=== PATIENT | male | born 1960 | race Hispanic/Latino ===

== ENCOUNTER 2017-06-24 07:31 | Inpatient (IN) | payer MEDICARE ==
[2017-06-24 08:32] LABS: #Basophils 0.1 thou/uL (0.0-0.2); #Eosinphils 0.1 thou/uL (0.0-0.7); #Lymphocytes 1.8 thou/uL (1.20-3.40); #Monocytes 0.3 thou/uL (0.11-0.59); #Neutrophils 5.1 thou/uL (1.40-6.50); %Basophils 1.2 % (0.0-1.0); %Eosinophils 1.7 % (0.0-10.0); %Lymphocytes 24.4 % (21.0-51.0); %Neutrophils 68.7 % (42.0-75.0); Hemoglobin 11.6 g/dL (14.0-18.0); Mean Corpuscular HGB CONC 31.9 g/dL (32.0-36.0); Mean Corpuscular Hemoglobin 30.6 pg (27.0-31.0); Mean Platelet Volume 7.7 fL (7.4-10.4); Platelet Count 328 thou/uL (130-400); RBC Distribution Width 13.5 % (11.5-14.5); Red Blood Cell (RBC) Count 3.79 mill/uL (4.70-6.10); White Blood Cell (WBC) Count 7.5 thou/uL (4.8-10.8)
--- NOTE | 2017-06-24 08:36 | RAD ---
SINGLE VIEW OF THE CHEST: COMPARISON: 10/19/16. HISTORY: Left arm swelling that started this morning. Facial swelling. FINDINGS: A single view of the chest shows a normal size cardiomediastinal silhouette. There is a small right pleural effusion with adjacent atelectasis. No left pleural effusion is seen. IMPRESSION: Small right pleural effusion with adjacent atelectasis. POS: [facility]
[2017-06-24 08:51] LABS: ALT (SGPT) 14 U/L (8-55); AST (SGOT) 20 U/L (5-34); Alkaline Phosphatase 81 U/L (40-150); Anion Gap 13 mmol/L (10-20); BUN (Urea Nitrogen) 36 mg/dL (8.4-25.7); Bilirubin, Total 0.2 mg/dL (0.2-1.2); CK (CPK) 376 U/L (30-200); Calc. Creatinine Clearance 0 mL/min (70-130); Calcium 7.7 mg/dL (7.8-10.44); Carbon Dioxide 18 mmol/L (22-29); Chloride 115 mmol/L (98-107); Estimated GFR-MDRD 23; Globulin 2.3 g/dL (2.4-3.5); Glucose 71 mg/dL (70-105); Protein, Total 4.3 g/dL (6.0-8.3); Sodium 143 mmol/L (136-145)
[2017-06-24 08:54] LABS: Potassium 2.7 mmol/L (3.5-5.1)
[2017-06-24] MEDS ORDERED: Potassium Chloride 20 MEQ in Sodium Chloride 0.9% 250 ML 250 ML IVPB SCH (09:15)
[2017-06-24] MEDS ORDERED: Potassium Chloride 20 MEQ TAB ONE (09:33)
--- NOTE | 2017-06-24 09:47 | ULT ---
LEFT UPPER EXTREMITY VENOUS DUPLEX SONOGRAM: HISTORY: Left arm pain and edema. FINDINGS: The left internal jugular and subclavian veins were evaluated along with the axillary, brachial, ceph alic, and basilic veins. There is good color and spectral Doppler flow, compression, and augmentatio n. IMPRESSION: No sonographic evidence of deep vein thrombosis within the left upper extremity. POS: [facility]
[2017-06-24] MEDS ORDERED: Bisacodyl 5 MG TAB PO PRN (12:05)
[2017-06-24] MEDS ORDERED: Acetaminophen 650 MG Suppository PR PRN (12:05)
[2017-06-24] MEDS ORDERED: Acetaminophen 325 MG TAB PO PRN (12:05)
[2017-06-24] MEDS ORDERED: Dextrose 5% in Water 1,000 ML IV PRN (12:11)
[2017-06-24] MEDS ORDERED: Dextrose 50% Abboject 50 ML SYRINGE SLOW IVP PRN (12:11)
[2017-06-24] MEDS ORDERED: hydrALAZINE 20 MG/ML VIAL ONE (13:27)
[2017-06-24] MEDS ORDERED: NS 0.9% w/ 20 MEQ KCL 1,000 ML/1,000 ML BAG IV SCH (14:15)
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
[2017-06-24] MEDS ORDERED: Heparin 5,000 UNITS/ML VIAL SC SCH (15:00)
[2017-06-24] MEDS: Potassium Chloride 20 MEQ TAB PO SCH ×2 (18:26→20:19)
[2017-06-24] MEDS: Nicotine 21 MG PATCH TD SCH (18:27)
[2017-06-24] MEDS: Heparin 5,000 UNITS/ML VIAL SC SCH (20:19)
[2017-06-24] MEDS: Metoprolol Tartrate 25 MG TAB PO SCH (20:19)
[2017-06-24 22:25] LABS: Potassium, Urine 39.2 mmol/L
--- NOTE | 2017-06-24 23:09 | ULT ---
RENAL ULTRASOUND: History: Acute renal insufficiency. FINDINGS: The right kidney measures 12 cm in length. There is increased cortical echogenicity consistent with m edical renal disease. There is no hydronephrosis. The left kidney measures 12 cm length. Mild increased cortical echogenicity. No hydronephrosis. The bladder is abnormal with a thickened bladder wall. The bladder is mostly contracted, however, the bladder wall appears prominent even for contracted state. There is mild to moderate ascites noted in the lower abdomen. IMPRESSION: 1. Both kidneys show increased cortical echogenicity consistent with medial renal disease. 2. No hydronephrosis. 3. Bladder appears abnormal with thickened bladder wall. 4. Moderate ascites noted in the lower abdomen. POS: [facility]
--- NOTE | 2017-06-24 23:44 | CON ---
DATE OF CONSULTATION: 06/24/2017 CONSULTING PHYSICIAN: Maribell Castillo M.D. REQUESTING PHYSICIAN: Eric Breen M.D. REASON FOR CONSULTATION: Acute kidney injury. IMPRESSION: 1. Acute on chronic kidney disease query cause versus progression of baseline chronic kidney disease in the context of problem #2. 2. Diabetic nephropathy with nephrotic range proteinuria. 3. Left-sided swelling, which is not new, may be related to some cerebrovascular accident in the pas t compounded by potential nephrotic syndrome. IMPRESSION: Severe hypokalemia with metabolic acidosis, query cause. PLAN: 1. Discontinue IV fluid. 2. Potassium supplementation and also evaluate the magnesium level. 3. Evaluate this currently elevated creatinine by checking the echogenicity of the kidneys with ultr asound also we will reevaluate the degree of proteinuria by checking urine chemistry. 4. Check . We are checking parathyroid hormone and phosphorus level. 5. Renally dose all medications and avoid potentially nephrotoxic agents. 6. No indication for renal replacement therapy. HISTORY OF PRESENT ILLNESS: History is that of a 57-year-old gentleman with a known history of kidne y disease in the context of diabetic nephropathy with nephrotic range proteinuria, who presented here with left-sided swelling, which is not new, it has been happening on and off and the patient denies use of any new medications that might be potentially nephrotoxic. The patient also did complain of w eakness, but no difficulty with urination or any shortness of breath. On evaluation, the patient was noted with a creatinine above 2 when the patient normal baseline creatinine is anywhere around 1, as a result of these findings decision has been taken to involve Renal in the management of this case. PAST MEDICAL HISTORY: Significant for possible diabetic nephropathy, peripheral vascular disease, st atus post right BKA, hypertension. MEDICATIONS: Reviewed and as documented on [employer]. FAMILY HISTORY: No family history significantly related to the presenting illness. SOCIAL HISTORY: The patient is , smokes cigarettes and denies significant alcohol or illicit drug use. ALLERGIES: No known drug allergies. REVIEW OF SYSTEMS: As documented in the body of the history. All the other systems were reviewed an d none was found to be significantly related to the presenting illness. LABORATORY INVESTIGATION: Showed potassium of 3.7, bicarbonate of 18, BUN of 36 with a creatinine 2. 81, calcium 7.7 with albumin of 2.0. CBC unremarkable. PHYSICAL EXAMINATION: GENERAL: The patient was found to be somewhat irritated, otherwise noted with the following. VITAL SIGNS: Afebrile with temperature 98.77, pulse 55-60, blood pressure 185/84, respiratory rate o f 16, O2 sat 98%. HEENT: Unremarkable with moist oral mucosa. Neck was supple. No conjunctival injection or icterus. CARDIOVASCULAR SYSTEM: First and second heart sounds were heard. RESPIRATORY SYSTEM: Clear to auscultation. DIGESTIVE SYSTEM: Revealed a benign abdomen with positive bowel sounds. EXTREMITIES: No peripheral edema. SKIN: No new gross rash. LYMPHATICS: No peripheral lymphadenopathy. EXTREMITIES: Showed some peripheral edema especially in the lower extremity as well as left upper ex tremity. SUMMARY: A 57-year-old gentleman with diabetic nephropathy, who presented here with some peripheral edema, severe hypokalemia, metabolic acidosis. Thank you for this consultation. We will follow with you.
[2017-06-25] MEDS: Potassium Chloride 20 MEQ TAB PO SCH ×5 (03:05→22:06)
[2017-06-25 05:17] LABS: #Basophils 0.1 thou/uL (0.0-0.2); #Eosinphils 0.2 thou/uL (0.0-0.7); #Lymphocytes 2.2 thou/uL (1.20-3.40); #Monocytes 0.4 thou/uL (0.11-0.59); #Neutrophils 3.7 thou/uL (1.40-6.50); %Basophils 1.2 % (0.0-1.0); %Eosinophils 3.5 % (0.0-10.0); %Lymphocytes 33.5 % (21.0-51.0); %Monocytes 5.5 % (0.0-10.0); %Neutrophils 56.4 % (42.0-75.0); Hemoglobin 9.7 g/dL (14.0-18.0); Mean Corpuscular HGB CONC 34.5 g/dL (32.0-36.0); Mean Corpuscular Hemoglobin 32.7 pg (27.0-31.0); Mean Corpuscular Volume 94.6 fl (80.0-94.0); Mean Platelet Volume 8.3 fL (7.4-10.4); Platelet Count 276 thou/uL (130-400); RBC Distribution Width 13.5 % (11.5-14.5); Red Blood Cell (RBC) Count 2.97 mill/uL (4.70-6.10); White Blood Cell (WBC) Count 6.5 thou/uL (4.8-10.8)
[2017-06-25 05:49] LABS: Albumin 1.8 g/dL (3.5-5.0); Anion Gap 11 mmol/L (10-20); BUN (Urea Nitrogen) 35 mg/dL (8.4-25.7); BUN/Creatinine Ratio 12.46; Calc. Creatinine Clearance 38 mL/min (70-130); Calcium 7.6 mg/dL (7.8-10.44); Carbon Dioxide 19 mmol/L (22-29); Cardiac Risk 4.8 (Less than 4.5); Chloride 115 mmol/L (98-107); Cholesterol 193 mg/dl (< 200 Desired); Estimated GFR-MDRD 23; Glucose 98 mg/dL (70-105); HDL Cholesterol 40 mg/dL (>60 Neg Risk); LDL Cholesterol, Calculated 125 mg/dL; Magnesium 1.4 mg/dL (1.6-2.6); Phosphorus 3.6 mg/dL (2.3-4.7); Sodium 142 mmol/L (136-145); Triglycerides 140 mg/dL (Less than 150)
[2017-06-25 05:52] LABS: Potassium 2.9 mmol/L (3.5-5.1)
[2017-06-25] MEDS ORDERED: Potassium Chloride 20 MEQ TAB PO SCH (06:15)
[2017-06-25] MEDS: Heparin 5,000 UNITS/ML VIAL SC SCH ×2 (07:48→22:05)
[2017-06-25] MEDS: Atorvastatin Calcium 10 MG TAB PO SCH (07:48)
[2017-06-25] MEDS: Metoprolol Tartrate 25 MG TAB PO SCH ×2 (07:48→22:05)
[2017-06-25] MEDS ORDERED: Aspirin 325 mg Enteric Coated Tablet PO SCH (09:00)
[2017-06-25] MEDS ORDERED: Magnesium 2 GM/NS 0.9% 100 ML 2 GM in Premix Bag 1 BAG IVPB SCH (09:15)
[2017-06-25] MEDS ORDERED: hydrALAZINE 20 MG/ML VIAL SLOW IVP SCH (12:15)
--- NOTE | 2017-06-25 13:26 | PDOC.PN ---
- Subjective Encounter Start Date: 06/25/17 Encounter Start Time: 08:00 Pt seen for followup re: QUANG. Denies chest pain, shortness of berath, fevers or chills. - Objective MAR Reviewed: Yes Vital Signs & Weight: Vital Signs (12 hours) Temp Pulse Resp BP BP Pulse Ox 06/25/17 12:17 60 198/88 H 06/25/17 11:36 98.2 F 60 18 198/88 H 100 06/25/17 07:30 98.6 F 66 18 210/95 H 98 06/25/17 04:00 97.1 F L 66 18 170/79 H 97 Weight Weight 197 lb 6.4 oz I&O: 06/24/17 06/25/17 06/26/17 06:59 06:59 06:59 Intake Total 1070 Output Total 550 Balance 520 Result Diagrams: 06/25/17 04:35 06/25/17 04:35 Additional Labs: Accuchecks 06/25/17 06/24/17 06/24/17 11:13 21:12 17:27 POC Glucose 166 H 186 H 72 EKG Reviewed by me: Yes (Tele: NSR) Phys Exam - Physical Examination Obese HEENT: PERRLA, moist MMs, sclera anicteric, oral pharynx no lesions Neck: no nodes, no JVD, supple, full ROM Respiratory: no wheezing, no rales, no rhonchi, clear to auscultation bilateral Cardiovascular: RRR, no rub Gastrointestinal: soft, non-tender, no distention, positive bowel sounds s/p R BKA Neurological: moves all 4 limbs Psychiatric: normal affect Skin: no rash Deviation from normal: LUE edema+ Dx/Plan (1) QUANG (acute kidney injury) Code(s): N17.9 - ACUTE KIDNEY FAILURE, UNSPECIFIED Status: Acute (2) Hypokalemia Code(s): E87.6 - HYPOKALEMIA Status: Acute (3) Below knee amputation status Status: Chronic Qualifiers: Laterality: right Qualified Code(s): Z89.511 - Acquired absence of right leg below knee (4) Nephrotic syndrome Code(s): N04.9 - NEPHROTIC SYNDROME WITH UNSPECIFIED MORPHOLOGIC CHANGES Status: Chronic (5) Diabetic peripheral vascular disease Code(s): E11.51 - TYPE 2 DIABETES W DIABETIC PERIPHERAL ANGIOPATH W/O GANGRENE Status: Chronic (6) Hypertension, uncontrolled Code(s): I10 - ESSENTIAL (PRIMARY) HYPERTENSION Status: Chronic - Plan plan discussed w/ family, PT/OT, out of bed/ambulate * . Appreciate nephrology service input. Replace potassium. Continue accuchecks, insulin sliding scale. Monitor vital signs, titrate antihypertensives as needed. Review of Systems - Review of Systems Constitutional: negative: fever, chills, sweats, weakness, malaise Respiratory: negative: Cough, Dry, Shortness of Breath, Hemoptysis, SOB with Excertion, Pleuritic Pain, Sputum, Wheezing Cardiovascular: negative: chest pain, palpitations, orthopnea, paroxysmal nocturnal dyspnea, edema, light headedness Gastrointestinal: negative: Nausea, Vomiting, Abdominal Pain, Diarrhea, Constipation, Melena, Hematochezia Genitourinary: negative: Dysuria, Frequency, Incontinence, Hematuria, Retention - Medications/Allergies Allergies/Adverse Reactions: Allergies Allergy/AdvReac Type Severity Reaction Status Date / Time No Known Allergies Allergy Verified 06/24/17 15:20 Medications: Current Medications Acetaminophen (Tylenol) 650 mg PO Q4H PRN PRN Reason: Headache/Fever or Pain Acetaminophen (Tylenol) 650 mg [place] Q4H PRN PRN Reason: Headache/Fever or Pain Aspirin (Ecotrin) 325 mg PO DAILY [facility] Last Admin: 06/25/17 07:48 Dose: 325 mg Atorvastatin Calcium (Lipitor) 10 mg PO DAILY [facility] Last Admin: 06/25/17 07:48 Dose: 10 mg Bisacodyl (Dulcolax) 10 mg PO DAILYPRN PRN PRN Reason: Constipation Dextrose/Water (Dextrose 50%) 25 gm SLOW IVP PRN PRN PRN Reason: Hypoglycemia Furosemide (Lasix) 40 mg SLOW IVP 0600,1400 [facility] Glucagon (Glucagon) 1 mg IM PRN PRN PRN Reason: Hypoglycemia Heparin Sodium (Porcine) (Heparin) 5,000 units SC BID [facility] Last Admin: 06/25/17 07:48 Dose: Not Given Hydralazine HCl (Apresoline) 10 mg SLOW IVP NOW [facility] Stop: 06/25/17 14:15 Last Admin: 06/25/17 12:17 Dose: 10 mg Hydralazine HCl (Apresoline) 10 mg SLOW IVP Q6H PRN PRN Reason: SBP > 180 Dextrose/Water (D5w) 1,000 mls @ 0 mls/hr IV .Q0M PRN; As Directed PRN Reason: Hypoglycemia Insulin Human Lispro (Humalog) 0 units SC .MILD SLIDING SCALE PRN PRN Reason: Mild Correctional Scale Metoprolol Tartrate (Lopressor) 25 mg PO BID [facility] Last Admin: 06/25/17 07:48 Dose: 25 mg Nicotine (Nicoderm Patch) 21 mg TD Q24HR [facility] Last Admin: 06/24/17 18:27 Dose: 21 mg Potassium Chloride (K-Dur) 40 meq PO Q4H [facility] Stop: 06/25/17 21:16 Last Admin: 06/25/17 11:26 Dose: 40 meq
[2017-06-25] MEDS: Furosemide 40 MG/4 ML VIAL SLOW IVP SCH (14:23)
[2017-06-25] MEDS: Nicotine 21 MG PATCH TD SCH (14:23)
[2017-06-25] MEDS ORDERED: Spironolactone 100 MG TAB PO SCH (15:45)
[2017-06-25] MEDS: hydrALAZINE 25 MG TAB PO PRN (17:48)
[2017-06-25] MEDS ORDERED: hydrALAZINE 20 MG/ML VIAL SLOW IVP PRN (18:00)
[2017-06-25] MEDS ORDERED: Artificial Tears 18 DROP/0.9 ML EA EYE PRN (18:42)
--- NOTE | 2017-06-25 20:07 | PRG ---
DATE OF SERVICE: 06/25/2017 SUBJECTIVE: The patient was seen and examined, seems to be angry and somewhat agitated, noted with t he following. OBJECTIVE: VITAL SIGNS: Afebrile with a temperature of 98.2, pulse 60, respiratory rate of 18 and O2 sat 100% w ith a blood pressure of 198/88. HEENT: Unremarkable with moist oral mucosa. No conjunctival injection or icterus. NECK: Supple. CARDIOVASCULAR SYSTEM: First and second heart sounds were heard. RESPIRATORY SYSTEM: Clear to auscultation. DIGESTIVE SYSTEM: Revealed a benign abdomen. EXTREMITIES: Shows some peripheral edema. LABORATORY INVESTIGATION: Showed a potassium of 2.9, chloride 115 with a bicarbonate of 19, creatini ne 2.81, magnesium 1.4. Protein creatinine ratio indicative of 15 grams of protein in 24 hours being lost through the urine. CBC showed a hemoglobin of 9.7. IMPRESSION: 1. Nephrotic syndrome in the context of problem #2. 2. Diabetic nephropathy. 3. Hypertension, suboptimally controlled due to the patient being off some antihypertensive medicati on. 4. Diabetes type 2. 4. Hypokalemia. PLAN: 1. The patient's renal function seems to be moderately advanced. We will continue this patient on l ow sodium diet. 2. We will start parenteral diuresis to address the hypervolemia in this patient. 3. Adjust antihypertensive medications to optimize hemodynamics. 4. From all indication, we will likely proceed to secure permanent dialysis access in preparation fo r possible need for renal replacement therapy down the road. 5. Renally dose all medications and avoid potentially nephrotoxic agents.
[2017-06-26 05:29] LABS: #Basophils 0.1 thou/uL (0.0-0.2); #Eosinphils 0.2 thou/uL (0.0-0.7); #Lymphocytes 2.2 thou/uL (1.20-3.40); #Monocytes 0.3 thou/uL (0.11-0.59); #Neutrophils 3.7 thou/uL (1.40-6.50); %Basophils 1.3 % (0.0-1.0); %Eosinophils 3.5 % (0.0-10.0); %Lymphocytes 33.5 % (21.0-51.0); %Monocytes 4.7 % (0.0-10.0); %Neutrophils 57.1 % (42.0-75.0); Mean Corpuscular HGB CONC 33.2 g/dL (32.0-36.0); Mean Corpuscular Hemoglobin 31.8 pg (27.0-31.0); Mean Corpuscular Volume 95.9 fl (80.0-94.0); Mean Platelet Volume 8.3 fL (7.4-10.4); Platelet Count 277 thou/uL (130-400); RBC Distribution Width 13.4 % (11.5-14.5); Red Blood Cell (RBC) Count 3.13 mill/uL (4.70-6.10); White Blood Cell (WBC) Count 6.5 thou/uL (4.8-10.8)
[2017-06-26] MEDS: Furosemide 40 MG/4 ML VIAL SLOW IVP SCH (05:40)
[2017-06-26 05:55] LABS: Albumin 1.8 g/dL (3.5-5.0); Anion Gap 9 mmol/L (10-20); BUN (Urea Nitrogen) 35 mg/dL (8.4-25.7); BUN/Creatinine Ratio 12.11; Calc. Creatinine Clearance 36 mL/min (70-130); Calcium 7.6 mg/dL (7.8-10.44); Carbon Dioxide 18 mmol/L (22-29); Chloride 118 mmol/L (98-107); Estimated GFR-MDRD 23; Glucose 122 mg/dL (70-105); Phosphorus 3.4 mg/dL (2.3-4.7); Potassium 4.1 mmol/L (3.5-5.1); Sodium 141 mmol/L (136-145)
[2017-06-26] MEDS ORDERED: NIFEdipine XL 30 MG TAB PO SCH (09:00)
[2017-06-26] MEDS: Spironolactone 100 MG TAB PO SCH (09:39)
[2017-06-26] MEDS: Atorvastatin Calcium 10 MG TAB PO SCH (09:40)
[2017-06-26] MEDS: Aspirin 81 mg Enteric Coated Tablet PO SCH (09:40)
[2017-06-26] MEDS: Heparin 5,000 UNITS/ML VIAL SC SCH ×2 (09:40→22:16)
[2017-06-26] MEDS: Metoprolol Tartrate 25 MG TAB PO SCH ×2 (09:40→22:16)
[2017-06-26] MEDS: hydrALAZINE 25 MG TAB PO PRN (11:25)
[2017-06-26] MEDS ORDERED: Metolazone 5 MG TAB PO SCH (13:30)
[2017-06-26] MEDS: Nicotine 21 MG PATCH TD SCH (14:28)
[2017-06-26] MEDS: Furosemide 100 MG/10 ML VIAL SLOW IVP SCH (15:44)
--- NOTE | 2017-06-26 16:43 | PRG ---
DATE OF SERVICE: 06/26/2017 SUBJECTIVE: The patient was seen and examined today and as usual very angry, noted with the followin g. PHYSICAL EXAMINATION: VITAL SIGNS: Afebrile with temperature 98.3, pulse 62, respiratory rate of 18, O2 sat of 98% with a blood pressure 194/91-202/91. HEENT: Unremarkable. CARDIOVASCULAR: First and second heart sounds were heard. RESPIRATORY SYSTEM: Clear to auscultation. DIGESTIVE SYSTEM: Revealed a benign abdomen with positive bowel sounds. EXTREMITIES: Showed worsening peripheral edema especially in the left upper extremity. LABORATORY INVESTIGATION: Revealed a hemoglobin of 10.0. Chemistry showed a creatinine of 2.89 with BUN of 35, bicarbonate of 18, and albumin 1.8. IMPRESSION: 1. Severe diabetic nephropathy. 2. Chronic kidney disease stage IV/V. 3. Metabolic acidosis. 4. Anasarca in the context of nephrotic syndrome. PLAN: 1. We will augment this patient's diuretics; however, from the look of things, the patient likely at the point of very close to requiring renal replacement therapy (hemodialysis). 2. If no significant response to medical diuresis, we will strongly discuss dialytic intervention in this patient. 3. Adjust antihypertensive medications to optimize this patient's hemodynamics, as the patient is cu rrently severely hypertensive. 4. We will consider 24-hour urine collection to properly evaluate this kidney and the degree of prot einuria. 5. We will begin to talk in the process of planning for eventual renal replacement therapy in this p atient, which includes vein mapping and placement of fistula.
--- NOTE | 2017-06-26 16:55 | PDOC.PN ---
- Subjective Encounter Start Date: 06/26/17 Encounter Start Time: 07:20 Pt seen for followup re: QUANG. Denies chest pain, shortness of breath. - Objective MAR Reviewed: Yes Vital Signs & Weight: Vital Signs (12 hours) Temp Pulse Resp BP Pulse Ox 06/26/17 14:02 98.3 F 62 18 98 06/26/17 11:20 98.3 F 62 18 202/91 H 98 06/26/17 08:00 98.8 F 66 20 99 06/26/17 07:48 98.8 F 66 20 194/91 H 99 Weight Weight 197 lb 6.4 oz I&O: 06/25/17 06/26/17 06/27/17 06:59 06:59 06:59 Intake Total 1070 480 50 Output Total 550 550 200 Balance 520 -70 -150 Result Diagrams: 06/26/17 04:36 06/26/17 04:36 Additional Labs: Accuchecks 06/26/17 06/26/17 06/25/17 11:29 06:17 20:36 POC Glucose 186 H 116 H 242 H EKG Reviewed by me: Yes (Tele: NSR) Phys Exam - Physical Examination Constitutional: NAD HEENT: PERRLA, moist MMs, sclera anicteric, oral pharynx no lesions Neck: no nodes, no JVD, supple, full ROM Respiratory: no wheezing, no rales, no rhonchi, clear to auscultation bilateral Cardiovascular: RRR, no rub Gastrointestinal: soft, non-tender, positive bowel sounds Musculoskeletal: pulses present s/p R BKA Neurological: moves all 4 limbs Psychiatric: normal affect Dx/Plan (1) QUANG (acute kidney injury) Code(s): N17.9 - ACUTE KIDNEY FAILURE, UNSPECIFIED Status: Acute (2) Below knee amputation status Status: Chronic Qualifiers: Laterality: right Qualified Code(s): Z89.511 - Acquired absence of right leg below knee (3) Nephrotic syndrome Code(s): N04.9 - NEPHROTIC SYNDROME WITH UNSPECIFIED MORPHOLOGIC CHANGES Status: Chronic (4) Diabetic peripheral vascular disease Code(s): E11.51 - TYPE 2 DIABETES W DIABETIC PERIPHERAL ANGIOPATH W/O GANGRENE Status: Chronic (5) Hypertension, uncontrolled Code(s): I10 - ESSENTIAL (PRIMARY) HYPERTENSION Status: Chronic (6) Hypokalemia Code(s): E87.6 - HYPOKALEMIA Status: Resolved - Plan out of bed/ambulate * . Continue accuchecks, insulin sliding scale. Nephrology discussing re: renal replacement therapy. I had a lengthy discussion with him as well. Pt currently not happy about the prospect of [employer]. Monitor vital signs, titrate antihypertensives as needed. Hypokalemia resolved. Transfer to medical floor. Review of Systems - Review of Systems Constitutional: negative: fever, chills, sweats, weakness, malaise Respiratory: negative: Cough, Dry, Shortness of Breath, Hemoptysis, SOB with Excertion, Pleuritic Pain, Sputum Cardiovascular: negative: chest pain, palpitations, orthopnea, paroxysmal nocturnal dyspnea, edema, light headedness Genitourinary: negative: Dysuria, Frequency, Incontinence, Hematuria, Retention Skin: negative: Rash, Lesions, Giles, Bruising Neurological: negative: Weakness, Numbness, Incoordination, Change in Speech, Confusion, Seizures - Medications/Allergies Allergies/Adverse Reactions: Allergies Allergy/AdvReac Type Severity Reaction Status Date / Time No Known Allergies Allergy Verified 06/24/17 15:20 Medications: Current Medications Acetaminophen (Tylenol) 650 mg PO Q4H PRN PRN Reason: Headache/Fever or Pain Acetaminophen (Tylenol) 650 mg [place] Q4H PRN PRN Reason: Headache/Fever or Pain Artificial Tears (Tears Naturale) 2 drop EA EYE Q6H PRN PRN Reason: DRY EYES Aspirin (Ecotrin) 81 mg PO DAILY [facility] Last Admin: 06/26/17 09:40 Dose: 81 mg Atorvastatin Calcium (Lipitor) 10 mg PO DAILY [facility] Last Admin: 06/26/17 09:40 Dose: 10 mg Bisacodyl (Dulcolax) 10 mg PO DAILYPRN PRN PRN Reason: Constipation Dextrose/Water (Dextrose 50%) 25 gm SLOW IVP PRN PRN PRN Reason: Hypoglycemia Furosemide (Lasix) 60 mg SLOW IVP 0600,1400 [facility] Last Admin: 06/26/17 15:44 Dose: Not Given Glucagon (Glucagon) 1 mg IM PRN PRN PRN Reason: Hypoglycemia Heparin Sodium (Porcine) (Heparin) 5,000 units SC BID [facility] Last Admin: 06/26/17 09:40 Dose: Not Given Hydralazine HCl (Apresoline) 10 mg SLOW IVP Q6H PRN PRN Reason: SBP > 180 Hydralazine HCl (Apresoline) 25 mg PO Q6H PRN PRN Reason: SBP>180 Last Admin: 06/26/17 11:25 Dose: 25 mg Dextrose/Water (D5w) 1,000 mls @ 0 mls/hr IV .Q0M PRN; As Directed PRN Reason: Hypoglycemia Insulin Human Lispro (Humalog) 0 units SC .MILD SLIDING SCALE PRN PRN Reason: Mild Correctional Scale Metolazone (Zaroxolyn) 5 mg PO 0830 [facility] Metoprolol Tartrate (Lopressor) 25 mg PO BID [facility] Last Admin: 06/26/17 09:40 Dose: 25 mg Nicotine (Nicoderm Patch) 21 mg TD Q24HR [facility] Last Admin: 06/26/17 14:28 Dose: Not Given Nifedipine (Procardia Xl) 60 mg PO DAILY [facility] Spironolactone (Aldactone) 50 mg PO QAM[facility] Last Admin: 06/26/17 09:39 Dose: 50 mg
[2017-06-26] MEDS: HumaLOG 300 UNITS/3 ML VIAL SC PRN (17:58)
--- NOTE | 2017-06-26 22:49 | ULT ---
BILATERAL UPPER EXTREMITY VENOUS DOPPLER 06/26/17 PROVIDED CLINICAL HISTORY: Venous mapping for dialysis access. RIGHT UPPER EXTREMITY BRACHIAL ARTERY: 4.9 mm RADIAL ARTERY: 2.9 mm ULNAR ARTERY: 1.5 mm CEPHALIC VEIN Proximal Arm: 0.8 mm Mid Arm: 1 mm Distal Arm: 1.1 mm Antecubital Fossa: 1.0 mm Proximal Forearm: 1.5 mm Mid Forearm: 1.6 mm Distal Forearm: 1.3 mm BASILIC VEIN Proximal Arm: 4.4 mm Mid Arm: 3.5 mm Distal Arm: 1.9 mm Antecubital Fossa: 1.4 mm Proximal Forearm: 1.4 mm Mid Forearm: 1.4 mm Distal Forearm: 0.5 mm LEFT UPPER EXTREMITY BRACHIAL ARTERY: 4.5 mm RADIAL ARTERY: 2.1 mm ULNAR ARTERY: 1.6 mm CEPHALIC VEIN Proximal Arm: 2.1 mm Mid Arm: 1.9 mm Distal Arm: 1.8 mm Antecubital Fossa: 1.6 mm Proximal Forearm: 1.5 mm Mid Forearm: 1.4 mm Distal Forearm: 1.0 mm BASILIC VEIN Proximal Arm: 2.3 mm Mid Arm: 2.3 mm Distal Arm: 2.9 mm Antecubital Fossa: 2.1 mm Proximal Forearm: 1.3 mm Mid Forearm: 1.3 mm Distal Forearm: 1.5 mm IMPRESSION: Venous mapping as above. POS: CET
[2017-06-27 05:09] LABS: #Basophils 0.1 thou/uL (0.0-0.2); #Eosinphils 0.3 thou/uL (0.0-0.7); #Lymphocytes 1.9 thou/uL (1.20-3.40); #Monocytes 0.3 thou/uL (0.11-0.59); #Neutrophils 4.4 thou/uL (1.40-6.50); %Basophils 1.1 % (0.0-1.0); %Eosinophils 4.2 % (0.0-10.0); %Lymphocytes 27.2 % (21.0-51.0); %Monocytes 4.9 % (0.0-10.0); %Neutrophils 62.6 % (42.0-75.0); Mean Corpuscular Hemoglobin 31.8 pg (27.0-31.0); Mean Corpuscular Volume 96.5 fl (80.0-94.0); Mean Platelet Volume 8.3 fL (7.4-10.4); Platelet Count 272 thou/uL (130-400); RBC Distribution Width 13.3 % (11.5-14.5); Red Blood Cell (RBC) Count 3.13 mill/uL (4.70-6.10)
[2017-06-27 05:26] LABS: Albumin 1.8 g/dL (3.5-5.0); Anion Gap 11 mmol/L (10-20); BUN (Urea Nitrogen) 35 mg/dL (8.4-25.7); BUN/Creatinine Ratio 11.08; Calc. Creatinine Clearance 33 mL/min (70-130); Calcium 7.6 mg/dL (7.8-10.44); Carbon Dioxide 19 mmol/L (22-29); Chloride 116 mmol/L (98-107); Estimated GFR-MDRD 20; Glucose 147 mg/dL (70-105); Phosphorus 3.5 mg/dL (2.3-4.7); Sodium 142 mmol/L (136-145)
[2017-06-27] MEDS: Furosemide 100 MG/10 ML VIAL SLOW IVP SCH ×2 (07:29→14:15)
[2017-06-27] MEDS: Heparin 5,000 UNITS/ML VIAL SC SCH ×2 (08:04→20:30)
[2017-06-27] MEDS: Spironolactone 100 MG TAB PO SCH (08:05)
[2017-06-27] MEDS: Metoprolol Tartrate 25 MG TAB PO SCH ×2 (08:06→20:10)
[2017-06-27] MEDS: Aspirin 81 mg Enteric Coated Tablet PO SCH (08:06)
[2017-06-27] MEDS: Metolazone 5 MG TAB PO SCH (08:06)
[2017-06-27] MEDS: Atorvastatin Calcium 10 MG TAB PO SCH (08:06)
[2017-06-27] MEDS: NIFEdipine XL 60 MG TAB PO SCH (08:06)
[2017-06-27] MEDS: HumaLOG 300 UNITS/3 ML VIAL SC PRN ×2 (12:11→17:44)
--- NOTE | 2017-06-27 13:07 | PDOC.PN ---
- Subjective Encounter Start Date: 06/27/17 Encounter Start Time: 09:20 Pt seen for followup re: QUANG. Denies chest pain or shortness of breath. - Objective MAR Reviewed: Yes Vital Signs & Weight: Vital Signs (12 hours) Temp Pulse Resp BP BP Pulse Ox 06/27/17 11:18 98.1 F 60 20 171/78 H 96 06/27/17 08:06 62 180/82 H 06/27/17 08:00 98.0 F 62 22 H 95 06/27/17 07:26 98.0 F 62 22 H 180/82 H 95 06/27/17 04:00 98.0 F 68 18 144/71 H 92 L Weight Weight 197 lb 6.4 oz I&O: 06/26/17 06/27/17 06/28/17 06:59 06:59 06:59 Intake Total 480 50 240 Output Total 550 200 Balance -70 -150 240 Result Diagrams: 06/27/17 04:03 06/27/17 04:03 Additional Labs: Accuchecks 06/27/17 06/27/17 06/26/17 11:21 04:14 19:40 POC Glucose 231 H 160 H 182 H 06/26/17 16:46 POC Glucose 170 H Phys Exam - Physical Examination Obesity HEENT: moist MMs Neck: supple Respiratory: clear to auscultation bilateral Cardiovascular: RRR Gastrointestinal: soft s/p R BKA Neurological: moves all 4 limbs Lymphatic: no nodes Psychiatric: normal affect Dx/Plan (1) QUANG (acute kidney injury) Code(s): N17.9 - ACUTE KIDNEY FAILURE, UNSPECIFIED Status: Acute (2) Below knee amputation status Status: Chronic Qualifiers: Laterality: right Qualified Code(s): Z89.511 - Acquired absence of right leg below knee (3) Nephrotic syndrome Code(s): N04.9 - NEPHROTIC SYNDROME WITH UNSPECIFIED MORPHOLOGIC CHANGES Status: Chronic (4) Diabetic peripheral vascular disease Code(s): E11.51 - TYPE 2 DIABETES W DIABETIC PERIPHERAL ANGIOPATH W/O GANGRENE Status: Chronic (5) Hypertension, uncontrolled Code(s): I10 - ESSENTIAL (PRIMARY) HYPERTENSION Status: Chronic (6) Hypokalemia Code(s): E87.6 - HYPOKALEMIA Status: Resolved - Plan * . Discussed with pt re: worsening renal function. 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 Review of Systems - Review of Systems Respiratory: negative: Cough, Dry, Shortness of Breath, Hemoptysis, SOB with Excertion, Pleuritic Pain, Sputum, Wheezing Cardiovascular: negative: chest pain, palpitations, orthopnea, paroxysmal nocturnal dyspnea, edema, light headedness - Medications/Allergies Allergies/Adverse Reactions: Allergies Allergy/AdvReac Type Severity Reaction Status Date / Time No Known Allergies Allergy Verified 06/24/17 15:20 Medications: Current Medications Acetaminophen (Tylenol) 650 mg PO Q4H PRN PRN Reason: Headache/Fever or Pain Acetaminophen (Tylenol) 650 mg NV Q4H PRN PRN Reason: Headache/Fever or Pain Artificial Tears (Tears Naturale) 2 drop EA EYE Q6H PRN PRN Reason: DRY EYES Aspirin (Ecotrin) 81 mg PO DAILY [facility] Last Admin: 06/27/17 08:06 Dose: 81 mg Atorvastatin Calcium (Lipitor) 10 mg PO DAILY [facility] Last Admin: 06/27/17 08:06 Dose: 10 mg Bisacodyl (Dulcolax) 10 mg PO DAILYPRN PRN PRN Reason: Constipation Dextrose/Water (Dextrose 50%) 25 gm SLOW IVP PRN PRN PRN Reason: Hypoglycemia Furosemide (Lasix) 60 mg SLOW IVP 0600,1400 [facility] Last Admin: 06/27/17 07:29 Dose: Not Given Glucagon (Glucagon) 1 mg IM PRN PRN PRN Reason: Hypoglycemia Heparin Sodium (Porcine) (Heparin) 5,000 units SC BID [facility] Last Admin: 06/27/17 08:04 Dose: Not Given Hydralazine HCl (Apresoline) 10 mg SLOW IVP Q6H PRN PRN Reason: SBP > 180 Hydralazine HCl (Apresoline) 25 mg PO Q6H PRN PRN Reason: SBP>180 Last Admin: 06/26/17 11:25 Dose: 25 mg Dextrose/Water (D5w) 1,000 mls @ 0 mls/hr IV .Q0M PRN; As Directed PRN Reason: Hypoglycemia Insulin Human Lispro (Humalog) 0 units SC .MILD SLIDING SCALE PRN PRN Reason: Mild Correctional Scale Last Admin: 06/27/17 12:11 Dose: 3 unit Metolazone (Zaroxolyn) 5 mg PO 0830 [facility] Last Admin: 06/27/17 08:06 Dose: 5 mg Metoprolol Tartrate (Lopressor) 25 mg PO BID [facility] Last Admin: 06/27/17 08:06 Dose: 25 mg Nicotine (Nicoderm Patch) 21 mg TD Q24HR [facility] Last Admin: 06/26/17 14:28 Dose: Not Given Nifedipine (Procardia Xl) 60 mg PO DAILY [facility] Last Admin: 06/27/17 08:06 Dose: 60 mg Spironolactone (Aldactone) 50 mg PO [facility] Last Admin: 06/27/17 08:05 Dose: 50 mg
[2017-06-27] MEDS: Nicotine 21 MG PATCH TD SCH (14:16)
--- NOTE | 2017-06-27 17:19 | PRG ---
DATE OF SERVICE: 06/27/2017 SUBJECTIVE: The patient was seen and examined today, less cranky today, noted with the following. PHYSICAL EXAMINATION: VITAL SIGNS: Afebrile with temperature 98.6, pulse 65, respiratory rate of 20, O2 sat of 96% with a blood pressure 161/75. HEENT: Unremarkable. CARDIOVASCULAR SYSTEM: First and second heart sounds were heard. RESPIRATORY SYSTEM: Clear to auscultation. DIGESTIVE SYSTEM: Revealed an obese abdomen. EXTREMITIES: Showed peripheral edema. LABORATORY INVESTIGATIONS: Showed a creatinine of 3.16 with BUN of 35, bicarbonate of 19, potassium 4.0. Albumin 1.8, phosphorus of 3.5 with a calcium of 7.6. IMPRESSION: 1. Advanced chronic kidney disease, likely stage 5 in the context of problem #2. 2. Diabetic nephropathy with nephrotic range proteinuria. 3. Hypokalemia, resolved. 4. Hypertension, suboptimally controlled. 5. Anasarca in the context of nephrotic syndrome. PLAN: 1. From all indications, the patient is likely at the point of requiring renal replacement therapy. 2. Patient currently undergoing 24-hour urine collection, though I have not seen much the patient bear s collected. In any case, the result of this will be used to objectively evaluate the need for renal replacement therapy (hemodialysis). 3. Continue to renally dose all medications and avoid potentially nephrotoxic agents. 4. Vein mapping has been done in preparation for long-term dialysis access. 5. Further management will be dependent on the clinical course. I do not think this patient is resp onding well to medical diuresis.
[2017-06-28 04:32] LABS: Collection Duration 24 hrs; Urine Total Volume 1200 mL (800-1800)
[2017-06-28 05:03] LABS: 24 Hr Creatinine 688.8 mg/24 hr (950-2490); Creatinine, Urine 57.4 mg/dL (63-166)
[2017-06-28 05:30] LABS: Protein - 24 Hr 10068 mg/24 hr (Less than 300); Protein, Urine 839 mg/dL (1-14)
[2017-06-28] MEDS: Furosemide 40 MG TAB PO SCH ×2 (06:01→14:24)
[2017-06-28] MEDS: Metolazone 5 MG TAB PO SCH (09:09)
[2017-06-28] MEDS: NIFEdipine XL 60 MG TAB PO SCH (09:09)
[2017-06-28] MEDS: Atorvastatin Calcium 10 MG TAB PO SCH (09:09)
[2017-06-28] MEDS: Aspirin 81 mg Enteric Coated Tablet PO SCH (09:09)
[2017-06-28] MEDS: Metoprolol Tartrate 25 MG TAB PO SCH ×2 (09:10→20:00)
[2017-06-28] MEDS: Spironolactone 100 MG TAB PO SCH (09:10)
[2017-06-28] MEDS: Heparin 5,000 UNITS/ML VIAL SC SCH ×2 (09:11→20:00)
--- NOTE | 2017-06-28 10:46 | PDOC.PN ---
- Subjective Encounter Start Date: 06/28/17 Encounter Start Time: 14:00 Subjective: Patient with continued swelling of scrotum, LUE, LLE. Refused blood draw -: this AM after difficulty finding a vein. No CP. No SOB. - Objective MAR Reviewed: Yes Vital Signs & Weight: Vital Signs (12 hours) Temp Pulse Resp BP BP Pulse Ox 06/28/17 09:09 70 167/79 H 06/28/17 07:30 98.0 F 70 20 167/79 H 94 L 06/28/17 04:00 98.8 F 67 18 147/64 H 96 Weight Weight 197 lb 6.4 oz I&O: 06/27/17 06/28/17 06/29/17 06:59 06:59 06:59 Intake Total 50 1070 Output Total 200 2400 120 Balance -150 -1330 -120 Result Diagrams: 06/27/17 04:03 06/27/17 17:31 Additional Labs: Accuchecks 06/28/17 06/27/17 06/27/17 04:10 19:33 16:16 POC Glucose 115 H 133 H 170 H 06/27/17 11:21 POC Glucose 231 H Phys Exam - Physical Examination Constitutional: NAD HEENT: moist MMs Respiratory: no wheezing, no rales, no rhonchi, clear to auscultation bilateral Cardiovascular: RRR, no significant murmur Gastrointestinal: soft, non-tender, positive bowel sounds Musculoskeletal: edema present 3+ LUE, 1+ LLE, moderate scrotal edema S/P RLE amputation Neurological: non-focal Psychiatric: normal affect, A&O x 3 Dx/Plan (1) Acute on chronic renal failure Code(s): N17.9 - ACUTE KIDNEY FAILURE, UNSPECIFIED; N18.9 - CHRONIC KIDNEY DISEASE, UNSPECIFIED Status: Acute Comment: diabetic nephropathy, may need dialysis, Dr. Reyna manageing (2) Diastolic dysfunction Code(s): I51.9 - HEART DISEASE, UNSPECIFIED Status: Chronic (3) DM (diabetes mellitus), secondary, uncontrolled, with neurologic complications Code(s): E13.49 - OTH DIABETES W OTH DIABETIC NEUROLOGICAL COMPLICATION; E13.65 - OTHER SPECIFIED DIABETES MELLITUS WITH HYPERGLYCEMIA Status: Chronic (4) Hypertension, uncontrolled Code(s): I10 - ESSENTIAL (PRIMARY) HYPERTENSION Status: Chronic (5) Nephrotic syndrome Code(s): N04.9 - NEPHROTIC SYNDROME WITH UNSPECIFIED MORPHOLOGIC CHANGES Status: Chronic - Plan cont current plan of care * . - Discharge Day Encounter end time: 14:20
[2017-06-28 13:29] LABS: Body Surface Area 2.01; Creatinine, Urine 57.4 mg/dL (63-166)
[2017-06-28] MEDS: Nicotine 21 MG PATCH TD SCH (14:31)
[2017-06-28] MEDS ORDERED: CEFAZOLIN/Water 2 GM/20 ML SYRINGE SLOW IVP SCH (17:00)
[2017-06-28] MEDS: HumaLOG 300 UNITS/3 ML VIAL SC PRN (18:07)
--- NOTE | 2017-06-28 19:45 | PRG ---
DATE OF SERVICE: 06/28/2017 The patient was seen and examined, still with generalized body swelling to be very uncomfortable with this condition, noted with the following vital signs. OBJECTIVE: VITAL SIGNS: Afebrile with temperature 98, pulse 70, respiratory rate of 20, blood pressure 157/79. HEENT: Unremarkable. CARDIOVASCULAR: First and second heart sounds were heard. RESPIRATORY: Clear to auscultation. ABDOMEN: Digestive system revealed an obese abdomen. EXTREMITIES: Showed peripheral edema. NEUROLOGIC: Alert and oriented. No lateralizing signs. LABORATORY AND X-RAY FINDINGS: None available today. However, creatinine clearance came back and sh owed about 10,000 mg of protein loss in 24 hours as well as creatinine clearance of 13. IMPRESSION: 1. Chronic kidney disease stage V/end-stage renal disease in the context of problem #2. 2. Nephrotic syndrome due to problem #3. 3. Diabetic nephropathy. PLAN: 1. Surgery could be consulted for dialysis access placement in order to initiate this patient on hem odialysis. 2. I did have extensive discussion with the patient and the detailing what dialysis entail and the plan going forward. All questions were answered. The patient and the expressed understandi ng. 3. Further management will be dependent on the clinical course. When the line is placed, the dialys is will be initiated. Our manager case management involved to secure outpatient dialysis as part of the plan to wards discharge.
--- NOTE | 2017-06-29 00:39 | CON ---
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 I have been asked Dr. Reyna to establish dialysis access. He has had difficul t IV access. I have been asked to see him regarding placement of hemodialysis catheter and arm fistu la. The patient is right handed. He has had problems with swelling of his left upper extremity, joseph d to shoulder. He has had ultrasound vein mapping performed on 06/26/2017, revealing right cephalic vein 0.8, 1 mm, 1.5 mm, 1.6 mm, distal forearm 1.3 mm, basilic vein 4.4, 3.5, 1.9, 1.4 mm. His left upper extremity demonstrates his cephalic vein, 2.1, 1.9, 1.8, 1.6 mm, antecubital fossa 1.5, 1.4. B asilic vein 2.3, 2.3, 2.9, 2.1 mm, proximal forearm antecubital fossa. Because of his left arm swell ing, we will plan right arm primary fistula or prosthetic dialysis graft. We will plan placement of hemodialysis catheter cuffed tunneled. We will also plan placement of central line left IJ or femora l, if left IJ is not available. Due to his difficult IV access or swollen left upper extremity and p humberto to use his right arm for dialysis access. We will plan placement of a central line in the operat ing room under local anesthetic and then establish anesthesia after the patient has IV access. ALLERGIES: None. TOBACCO: One pack per day. ALCOHOL: None. MEDICATIONS: At home, he takes insulin 8 units at bedtime, Lasix 40 mg b.i.d., aspirin 81 mg daily, atorvastatin 10 mg daily, Lopressor 25 mg b.i.d. He is on nicotine patch in the hospital. PAST SURGICAL HISTORY: Right below-knee amputation by Dr. Momo Rasmussen 02/11/2014, for gangrene of the right foot. He has had right hand surgery due to some accident in the past. PAST MEDICAL HISTORY: He denies having passed colonoscopy. Echocardiogram on 10/19/2016, 55-60% EF, diastolic dysfunction. Carotid Doppler studies on 10/19/2016, no significant stenosis. Vascular ul trasound on 06/24/2017, no thrombosis noted in the visualized venous structures left upper extremity. PHYSICAL EXAMINATION: VITAL SIGNS: 5 feet 6 inches, 197 pounds, 31 BMI, 98 degrees, 167/79. HEENT: Unremarkable. LUNGS: Clear to auscultation. CARDIAC: Regular rate and rhythm without murmur or gallop. ABDOMEN: Soft, nontender. EXTREMITIES: Palpable radial pulses bilaterally. Left hand edema forearm, upper arm edema, right ar m without edema. Right below-knee amputation status IV access venipuncture 4-5 right antecubital. LABORATORY DATA: White count 7, hemoglobin 10. 06/27/2017, sodium 142, potassium 4.0, BUN 35, creati nine 3.16, GFR 20. ASSESSMENT AND PLAN: 1. End-stage renal disease. We will plan placement of hemodialysis catheter and right arm fistula. Due to his left arm edema, would avoid IV dialysis access in left arm. I suspect some central circu lation problem although he has not had any central access to precipitate this. Superficial venous st ructures by venous ultrasound are patent. 2. Diabetes. 3. Hypertension. 4. Tobacco abuse. 5. Status post right below-knee amputation.
[2017-06-29] MEDS ORDERED: CEFAZOLIN/Water 2 GM/20 ML SYRINGE SLOW IVP SCH (03:00)
[2017-06-29] MEDS: Metoprolol Tartrate 25 MG TAB PO SCH ×2 (05:21→19:56)
[2017-06-29] MEDS: Furosemide 40 MG TAB PO SCH ×2 (05:26→17:39)
[2017-06-29] MEDS ORDERED: CEFAZOLIN/Water 2 GM/20 ML SYRINGE ONE (06:56)
[2017-06-29 07:51] LABS: Anion Gap 10 mmol/L (10-20); BUN (Urea Nitrogen) 41 mg/dL (8.4-25.7); Calc. Creatinine Clearance 28 mL/min (70-130); Calcium 7.6 mg/dL (7.8-10.44); Carbon Dioxide 22 mmol/L (22-29); Chloride 113 mmol/L (98-107); Estimated GFR-MDRD 17; Glucose 113 mg/dL (70-105); Potassium 3.5 mmol/L (3.5-5.1); Sodium 141 mmol/L (136-145)
[2017-06-29] MEDS ORDERED: Heparin 0 ML ONE (09:02)
[2017-06-29] MEDS ORDERED: Heparin 5,000 UNITS/ML VIAL ONE (09:02)
[2017-06-29] MEDS ORDERED: Lidocaine 2% w/Epinephrine 1:200K 20 ML VIAL ONE (09:02)
[2017-06-29] MEDS ORDERED: Protamine Sulfate 50 MG/5 ML VIAL ONE (09:02)
[2017-06-29] MEDS ORDERED: Bupivacaine PF 0.5% 30 ML VIAL ONE (09:02)
[2017-06-29] MEDS ORDERED: Heparin 10,000 UNITS/1 ML VIAL ONE (09:03)
[2017-06-29] MEDS ORDERED: Midazolam HCl 2 mg/2 ml Vial ONE (09:05)
[2017-06-29] MEDS ORDERED: Fentanyl 100 MCG/2 ML VIAL ONE (09:05)
[2017-06-29] MEDS ORDERED: traMADol HCl 50 MG TAB PO PRN (09:19)
[2017-06-29] MEDS ORDERED: Sodium Chloride 0.9% 20 ML ONE (10:01)
[2017-06-29] MEDS: Aspirin 81 mg Enteric Coated Tablet PO SCH (10:25)
[2017-06-29] MEDS: Atorvastatin Calcium 10 MG TAB PO SCH (10:26)
[2017-06-29] MEDS: NIFEdipine XL 60 MG TAB PO SCH (10:26)
[2017-06-29] MEDS: Spironolactone 100 MG TAB PO SCH (10:26)
[2017-06-29] MEDS: Metolazone 5 MG TAB PO SCH (10:26)
[2017-06-29] MEDS: Heparin 5,000 UNITS/ML VIAL SC SCH ×2 (10:26→19:56)
--- NOTE | 2017-06-29 11:12 | OP ---
DATE OF PROCEDURE: 06/29/2017 PREOPERATIVE DIAGNOSES: 1. Edematous left arm, hand to shoulder, ultrasound negative for thrombophlebitis or venous occlusio n, but suspect central venous problem. 2. End-stage renal disease, uremia in need of IV access for right arm dialysis fistula versus graft and a hemodialysis catheter placement. POSTOPERATIVE DIAGNOSES: 1. Edematous left arm, hand to shoulder, ultrasound negative for thrombophlebitis or venous occlusio n, but suspect central venous problem. 2. End-stage renal disease, uremia in need of IV access for right arm dialysis fistula versus graft and a hemodialysis catheter placement. PROCEDURE: Left femoral vein triple lumen catheter. SURGEON: Dr. Pérez Encinas ANESTHESIA: 1% Xylocaine local. PROCEDURE: At the patient's bedside in the preoperative holding area, the left groin was clipped of hair, prepared with ChloraPrep, draped in routine fashion. Seldinger technique used to place a tripl e lumen catheter, removing the J wire placing a Biopatch securing the catheter with suture of 3-0 omayra k. 1% Xylocaine with epinephrine infiltrated skin and subcutaneous tissue prior to procedure for elio n control. The patient tolerated the procedure well. Each port aspirated blood and flushed with claudia ine solution.
[2017-06-29 11:13] LABS: Hep B Core Total Ab Non-Reactive (NonReactive); Hep B Core Total Index 0.04 S/CO (0-0.79); Hep B Surf AB Non-Reactive (NonReactive); Hep B Surf Ag Non-Reactive S/CO (NonReactive); Hep C IgG Ab Non-Reactive (NonReactive)
--- NOTE | 2017-06-29 12:33 | OP ---
DATE OF OPERATION: 06/29/2017 PREOPERATIVE DIAGNOSIS: End-stage renal disease in need of dialysis access. POSTOPERATIVE DIAGNOSIS: End-stage renal disease in need of dialysis access. PROCEDURE: Right IJ cuffed tunneled hemodialysis catheter, ultrasound and fluoroscopy used. Right a rm primary fistula. Exploration of wrist noting cephalic vein to be inadequate wound closed. Explor ation of proximal volar forearm noting excellent size of the brachial artery. Bifurcation must be hi gher as it was not present at this level. Perforating branch antecubital vein to brachial artery, ar terial inflow with outflow basilic vein. The patient will need a basilic vein transposition fistula. SURGEON: Dr. Pérez Encinas. ANESTHESIA: General LMA. Local 0.25% Marcaine 30 mL, mixed with 2% Xylocaine, 10 mL. PROCEDURE IN DETAIL: The patient was taken to the operating room where under general LMA anesthesia neck, chest and right upper extremity was prepared with ChloraPrep, draped in routine fashion. Local anesthetic infiltrated into skin and subcutaneous tissue about the operative sites. Using ultrasoun d, the right internal jugular vein was cannulated with trocar catheter. J-wire threaded, trocar cath eter removed. Skin incised and enlarged sharply. Stab incision made at the right chest. Using the tunneling device, the precurved angiodynamics cuffed tunneled hemodialysis catheter tunneled between the two incisions, placing the fabric cuff beneath the skin. Catheter secured with 2 interrupted sut ures of 3-0 nylon. Biopatch sterile dressing applied. Smaller and medium-sized dilators placed over the J-wire into the internal jugular vein and removed. Dilator and pull-away sheath placed over the J-wire into the internal jugular vein removing the dilator and J-wire. Catheter placed with a pull- away sheath. Pull-away sheath removed. Fluoroscopic images revealed good line placement. Platysma approximated with 4-0 Monocryl, skin with subdermal 4-0 Monocryl and DermaGlue applied. Each port as pirated blood and flushed with saline solution and heparinized saline solution 1000 units heparin per mL indicated volume of the port. Sterile dressings applied. Fluoroscopic images revealed good line placement. Attention was then to the right arm. Incision was made in the right wrist between the r adial artery and cephalic vein. Cephalic veins 2 small wounds approximated by approximating subcutan eous tissues with 3-0 Monocryl, skin with subdermal 4-0 Monocryl and DermaGlue applied. Incision made in the proximal volar forearm longitudinally just below the antecubital fossa and danielito ed down through the skin and subcutaneous tissue and good size and good alignment identified, dissect ed free, and surrounded with Silastic vessel loop. The patient was given 6000 units of heparin intra venously. The antecubital vein dissected free and branches divided between clips and 4-0 silk ties, it was spatulated over a branch point and interrogated with coronary dilators, passing coronary dilat ors from a 1.5 to a 4 mm coronary dilator in the outflow. Outflow was the basilic vein. There was n o communication of the cephalic vein and there were some smaller branches which were ligated and divi ded. At this point, the brachial artery was clamped proximally and distally. A search was made at t he bifurcation ulnar artery, but it must be much higher. The artery controlled proximally and distal ly with vascular clamps. Longitudinal arteriotomy made sharply and elongated with Nielson scissors and end vein to side radial artery anastomosis created with continuous suture of 6-0 Prolene. Vascular clamps released. There was excellent signal on the venous outflow, which was made in the basilic vei n. Good hemostasis noted and the patient given 25 mg of protamine intravenously by Anesthesia. Subc utaneous tissues approximated with 3-0 Monocryl, skin with subdermal 4-0 Monocryl and DermaGlue appli ed.
--- NOTE | 2017-06-29 12:50 | RAD ---
CHEST ONE VIEW: HISTORY: Central line placement. COMPARISON: Chest one view from 06/24/2017. FINDINGS Layering right effusion is improving. There are linear opacities of both lower lobes. No pneumothor ax. The cardiac silhouette is at the upper limits of normal. IMPRESSION: 1. Mild interval size decrease of the right pleural effusion. 2. Interstitial opacities in both lung bases may represent atelectasis. 3. Central venous catheter placed at the cavoatrial junction without complication. POS: LOVE
[2017-06-29] MEDS ORDERED: Propofol 200 MG/20 ML VIAL ONE (14:21)
[2017-06-29] MEDS ORDERED: Heparin 10,000 UNITS/ 10 ML VIAL ONE (14:21)
[2017-06-29] MEDS ORDERED: Lidocaine 1% PF 5 ML VIAL ONE (14:21)
--- NOTE | 2017-06-29 14:22 | PRG ---
DATE OF SERVICE: SUBJECTIVE: The patient was seen and examined, status post dialysis access establishment. OBJECTIVE: VITAL SIGNS: Afebrile with temperature 98.2, pulse 67, respiratory rate of 16, O2 sat 94% with a blo od pressure 165/81. HEENT: Unremarkable. CARDIOVASCULAR: First and second heart sounds were heard. RESPIRATORY: Clear to auscultation. DIGESTIVE SYSTEM: Revealed obese abdomen. EXTREMITIES: Showed peripheral edema. IMPRESSION: 1. Chronic kidney disease stage 5/end-stage renal disease. 2. Nephrotic syndrome in the context of problem #3. 3. Diabetic nephropathy. PLAN: 1. The patient to be initiated on dialysis today and will undergo 2 hours of dialysis and this will be gradually escalated until the patient gets up to the optimal dialysis treatment. 2. area safety manager consult for outpatient dialysis placement. 3. Further management to be dependent on the clinical course.
[2017-06-29] MEDS: Nicotine 21 MG PATCH TD SCH (16:23)
--- NOTE | 2017-06-29 18:39 | PDOC.PN ---
- Subjective Encounter Start Date: 06/29/17 Encounter Start Time: 18:38 Pt seen for followup re: QUANG. Had dialysis. No chest pain or shortness of breath. - Objective Vital Signs & Weight: Vital Signs (12 hours) Temp Pulse Resp BP Pulse Ox 06/29/17 17:47 172/77 H 06/29/17 16:06 97.5 F L 63 20 98 06/29/17 15:45 97.5 F L 63 20 195/78 H 98 06/29/17 10:26 67 Weight Weight 197 lb 6.4 oz I&O: 06/28/17 06/29/17 06/30/17 06:59 06:59 06:59 Intake Total 1070 240 Output Total 2400 620 0004 Balance -3073 -258 -7621 Result Diagrams: 06/27/17 04:03 06/29/17 07:15 Additional Labs: Accuchecks 06/29/17 06/29/17 06/28/17 17:27 11:19 19:10 POC Glucose 113 H 114 H 195 H Phys Exam - Physical Examination Constitutional: NAD HEENT: moist MMs Neck: supple Respiratory: clear to auscultation bilateral Cardiovascular: RRR Gastrointestinal: soft s/p R BKA Neurological: moves all 4 limbs Psychiatric: normal affect Deviation from normal: surgical sites clean Dx/Plan (1) QUANG (acute kidney injury) Code(s): N17.9 - ACUTE KIDNEY FAILURE, UNSPECIFIED Status: Acute (2) Below knee amputation status Status: Chronic Qualifiers: Laterality: right Qualified Code(s): Z89.511 - Acquired absence of right leg below knee (3) Nephrotic syndrome Code(s): N04.9 - NEPHROTIC SYNDROME WITH UNSPECIFIED MORPHOLOGIC CHANGES Status: Chronic (4) Diabetic peripheral vascular disease Code(s): E11.51 - TYPE 2 DIABETES W DIABETIC PERIPHERAL ANGIOPATH W/O GANGRENE Status: Chronic (5) Hypertension, uncontrolled Code(s): I10 - ESSENTIAL (PRIMARY) HYPERTENSION Status: Chronic (6) Hypokalemia Code(s): E87.6 - HYPOKALEMIA Status: Resolved - Plan plan discussed w/ family * . Dialysis initiated. Further dialysis schedule per nephrology service. Continue accuchecks, insulin sliding scale. Review of Systems - Review of Systems Respiratory: negative: Cough, Dry, Shortness of Breath, Hemoptysis, SOB with Excertion, Pleuritic Pain, Sputum, Wheezing Cardiovascular: negative: chest pain, palpitations, orthopnea, paroxysmal nocturnal dyspnea, edema, light headedness - Medications/Allergies Allergies/Adverse Reactions: Allergies Allergy/AdvReac Type Severity Reaction Status Date / Time No Known Allergies Allergy Verified 06/24/17 15:20 Medications: Current Medications Acetaminophen (Tylenol) 650 mg PO Q4H PRN PRN Reason: Headache/Fever or Pain Acetaminophen (Tylenol) 650 mg [place] Q4H PRN PRN Reason: Headache/Fever or Pain Acetaminophen (Tylenol) 1,000 mg PO Q6H PRN PRN Reason: Moderate to Severe Pain (6-10) Artificial Tears (Tears Naturale) 2 drop EA EYE Q6H PRN PRN Reason: DRY EYES Aspirin (Ecotrin) 81 mg PO DAILY [facility] Last Admin: 06/29/17 10:25 Dose: Not Given Atorvastatin Calcium (Lipitor) 10 mg PO DAILY [facility] Last Admin: 06/29/17 10:26 Dose: Not Given Bisacodyl (Dulcolax) 10 mg PO DAILYPRN PRN PRN Reason: Constipation Dextrose/Water (Dextrose 50%) 25 gm SLOW IVP PRN PRN PRN Reason: Hypoglycemia Glucagon (Glucagon) 1 mg IM PRN PRN PRN Reason: Hypoglycemia Heparin Sodium (Porcine) (Heparin) 5,000 units SC BID [facility] Last Admin: 06/29/17 10:26 Dose: Not Given Hydralazine HCl (Apresoline) 10 mg SLOW IVP Q6H PRN PRN Reason: SBP > 180 Hydralazine HCl (Apresoline) 25 mg PO Q6H PRN PRN Reason: SBP>180 Last Admin: 06/26/17 11:25 Dose: 25 mg Dextrose/Water (D5w) 1,000 mls @ 0 mls/hr IV .Q0M PRN; As Directed PRN Reason: Hypoglycemia Insulin Human Lispro (Humalog) 0 units SC .MILD SLIDING SCALE PRN PRN Reason: Mild Correctional Scale Last Admin: 06/28/17 18:07 Dose: 3 unit Metoprolol Tartrate (Lopressor) 25 mg PO BID [facility] Last Admin: 06/29/17 05:21 Dose: 25 mg Nicotine (Nicoderm Patch) 21 mg TD Q24HR [facility] Last Admin: 06/29/17 16:23 Dose: Not Given Nifedipine (Procardia Xl) 60 mg PO DAILY [facility] Last Admin: 06/29/17 10:26 Dose: Not Given Sodium Chloride (Flush - Normal Saline) 10 ml IVF Q12HR [facility] Sodium Chloride (Flush - Normal Saline) 10 ml IVF PRN PRN PRN Reason: Saline Flush Tramadol HCl (Ultram) 50 mg PO Q6H PRN PRN Reason: Mild Pain (1-3) Tramadol HCl (Ultram) 100 mg PO Q6H PRN PRN Reason: Moderate Pain (4-6)
[2017-06-29] MEDS: traMADol HCl 50 MG TAB PO PRN (19:55)
[2017-06-30] MEDS: Metoprolol Tartrate 25 MG TAB PO SCH ×2 (08:23→21:10)
[2017-06-30] MEDS: Aspirin 81 mg Enteric Coated Tablet PO SCH (08:24)
[2017-06-30] MEDS: NIFEdipine XL 60 MG TAB PO SCH (08:24)
[2017-06-30] MEDS: Atorvastatin Calcium 10 MG TAB PO SCH (08:25)
[2017-06-30] MEDS: Heparin 5,000 UNITS/ML VIAL SC SCH ×2 (08:25→21:10)
[2017-06-30] MEDS: traMADol HCl 50 MG TAB PO PRN (10:20)
[2017-06-30] MEDS: Nicotine 21 MG PATCH TD SCH (12:11)
--- NOTE | 2017-06-30 13:02 | PDOC.PN ---
- Subjective Encounter Start Date: 06/30/17 Encounter Start Time: 08:40 Pt seen for followup re: QUANG. had dialysis yesterday. No complaints. - Objective MAR Reviewed: Yes Vital Signs & Weight: Vital Signs (12 hours) Temp Pulse Resp BP BP Pulse Ox 06/30/17 08:24 60 170/72 H 06/30/17 08:00 99.5 F 60 16 155/76 H 90 L 06/30/17 03:54 98.2 F 60 18 170/72 H 92 L Weight Weight 197 lb 6.4 oz I&O: 06/29/17 06/30/17 07/01/17 06:59 06:59 06:59 Intake Total 850 Output Total 907 7491 Balance -620 -5224 Result Diagrams: 06/27/17 04:03 06/29/17 07:15 Additional Labs: Accuchecks 06/30/17 06/30/17 06/29/17 10:48 03:49 19:23 POC Glucose 197 H 174 H 193 H 06/29/17 17:27 POC Glucose 113 H Phys Exam - Physical Examination Constitutional: NAD HEENT: moist MMs Neck: supple Respiratory: clear to auscultation bilateral Cardiovascular: RRR Gastrointestinal: soft s/p R BKA Skin: no rash Dx/Plan (1) QUANG (acute kidney injury) Code(s): N17.9 - ACUTE KIDNEY FAILURE, UNSPECIFIED Status: Acute (2) Below knee amputation status Status: Chronic Qualifiers: Laterality: right Qualified Code(s): Z89.511 - Acquired absence of right leg below knee (3) Nephrotic syndrome Code(s): N04.9 - NEPHROTIC SYNDROME WITH UNSPECIFIED MORPHOLOGIC CHANGES Status: Chronic (4) Diabetic peripheral vascular disease Code(s): E11.51 - TYPE 2 DIABETES W DIABETIC PERIPHERAL ANGIOPATH W/O GANGRENE Status: Chronic (5) Hypertension, uncontrolled Code(s): I10 - ESSENTIAL (PRIMARY) HYPERTENSION Status: Chronic (6) Hypokalemia Code(s): E87.6 - HYPOKALEMIA Status: Resolved - Plan plan discussed w/ family, PT/OT, out of bed/ambulate * . Dialysis per nephrology service. Review of Systems - Review of Systems Respiratory: negative: Cough, Dry, Shortness of Breath, Hemoptysis, SOB with Excertion, Pleuritic Pain, Sputum, Wheezing Cardiovascular: negative: chest pain, palpitations, orthopnea, paroxysmal nocturnal dyspnea, edema, light headedness Skin: negative: Rash, Lesions, Giles, Bruising - Medications/Allergies Allergies/Adverse Reactions: Allergies Allergy/AdvReac Type Severity Reaction Status Date / Time No Known Allergies Allergy Verified 06/24/17 15:20 Medications: Current Medications Acetaminophen (Tylenol) 650 mg PO Q4H PRN PRN Reason: Headache/Fever or Pain Acetaminophen (Tylenol) 650 mg [place] Q4H PRN PRN Reason: Headache/Fever or Pain Acetaminophen (Tylenol) 1,000 mg PO Q6H PRN PRN Reason: Moderate to Severe Pain (6-10) Artificial Tears (Tears Naturale) 2 drop EA EYE Q6H PRN PRN Reason: DRY EYES Aspirin (Ecotrin) 81 mg PO DAILY [facility] Last Admin: 06/30/17 08:24 Dose: 81 mg Atorvastatin Calcium (Lipitor) 10 mg PO DAILY [facility] Last Admin: 06/30/17 08:25 Dose: 10 mg Bisacodyl (Dulcolax) 10 mg PO DAILYPRN PRN PRN Reason: Constipation Dextrose/Water (Dextrose 50%) 25 gm SLOW IVP PRN PRN PRN Reason: Hypoglycemia Glucagon (Glucagon) 1 mg IM PRN PRN PRN Reason: Hypoglycemia Heparin Sodium (Porcine) (Heparin) 5,000 units SC BID [facility] Last Admin: 06/30/17 08:25 Dose: 5,000 units Hydralazine HCl (Apresoline) 10 mg SLOW IVP Q6H PRN PRN Reason: SBP > 180 Hydralazine HCl (Apresoline) 25 mg PO Q6H PRN PRN Reason: SBP>180 Last Admin: 06/26/17 11:25 Dose: 25 mg Dextrose/Water (D5w) 1,000 mls @ 0 mls/hr IV .Q0M PRN; As Directed PRN Reason: Hypoglycemia Insulin Human Lispro (Humalog) 0 units SC .MILD SLIDING SCALE PRN PRN Reason: Mild Correctional Scale Last Admin: 06/28/17 18:07 Dose: 3 unit Metoprolol Tartrate (Lopressor) 25 mg PO BID [facility] Last Admin: 06/30/17 08:23 Dose: 25 mg Nicotine (Nicoderm Patch) 21 mg TD Q24HR [facility] Last Admin: 06/30/17 12:11 Dose: Not Given Nifedipine (Procardia Xl) 60 mg PO DAILY [facility] Last Admin: 06/30/17 08:24 Dose: 60 mg Sodium Chloride (Flush - Normal Saline) 10 ml IVF Q12HR [facility] Last Admin: 06/30/17 08:25 Dose: 10 ml Sodium Chloride (Flush - Normal Saline) 10 ml IVF PRN PRN PRN Reason: Saline Flush Tramadol HCl (Ultram) 50 mg PO Q6H PRN PRN Reason: Mild Pain (1-3) Tramadol HCl (Ultram) 100 mg PO Q6H PRN PRN Reason: Moderate Pain (4-6) Last Admin: 06/30/17 10:20 Dose: 100 mg
--- NOTE | 2017-06-30 18:41 | EKG ---
Test Reason : Blood Pressure : / mmHG Vent. Rate : 075 BPM Atrial Rate : 075 BPM P-R Int : 126 ms QRS Dur : 142 ms QT Int : 432 ms P-R-T Axes : 020 -33 010 degrees QTc Int : 482 ms Normal sinus rhythm Left axis deviation Right bundle branch block Abnormal ECG Confirmed by BRADNIE INGRAM MD ([id number]), brands editor TITO ALBERT ([id number]) on 06/30/2017 6:40:29 PM Referred By: Confirmed By:BRANDIE INGRAM MD
[2017-07-01] MEDS: Metoprolol Tartrate 25 MG TAB PO SCH ×2 (08:57→21:51)
[2017-07-01] MEDS: NIFEdipine XL 60 MG TAB PO SCH (08:57)
[2017-07-01] MEDS: Atorvastatin Calcium 10 MG TAB PO SCH (08:57)
[2017-07-01] MEDS: Heparin 5,000 UNITS/ML VIAL SC SCH ×3 (09:00→21:51)
[2017-07-01] MEDS: Aspirin 81 mg Enteric Coated Tablet PO SCH (09:01)
--- NOTE | 2017-07-01 09:06 | PRG ---
DATE OF SERVICE: 07/01/2017 SUBJECTIVE: The patient was seen and examined. PHYSICAL EXAMINATION: VITAL SIGNS: Afebrile with temperature 97.8, pulse 61, respiratory rate 18, O2 sat 93%, and blood pr essure 145/69. HEENT: Unremarkable. CARDIOVASCULAR SYSTEM: First and second heart sounds were heard. RESPIRATORY SYSTEM: Clear to auscultation. DIGESTIVE SYSTEM: Revealed a benign abdomen. EXTREMITIES: Showed peripheral edema. IMPRESSION: 1. End-stage renal disease in the context of problem #2. 2. Diabetic nephropathy/nephrotic syndrome. 3. Anasarca in the context of nephrotic syndrome. 4. Hypertension. PLAN: 1. The patient is to undergo day #3 of hemodialysis today with ultrafiltration as tolerated by hemod ynamics. 2. We will begin to engage the case management as it relates to disposition planning/outpatient dial ysis placement. 3. We will check the blood work today vis-a-vis the management of the anemia and electrolyte derange ments. 4. Further management to be dependent on the clinical course.
[2017-07-01 10:38] LABS: #Eosinphils 0.3 thou/uL (0.0-0.7); #Lymphocytes 1.5 thou/uL (1.20-3.40); #Monocytes 0.2 thou/uL (0.11-0.59); #Neutrophils 3.8 thou/uL (1.40-6.50); %Basophils 0.8 % (0.0-1.0); %Eosinophils 4.3 % (0.0-10.0); %Lymphocytes 25.7 % (21.0-51.0); %Monocytes 3.9 % (0.0-10.0); %Neutrophils 65.3 % (42.0-75.0); Hemoglobin 8.8 g/dL (14.0-18.0); Mean Corpuscular Hemoglobin 32.7 pg (27.0-31.0); Mean Platelet Volume 8.9 fL (7.4-10.4); Platelet Count 218 thou/uL (130-400); RBC Distribution Width 12.6 % (11.5-14.5); White Blood Cell (WBC) Count 5.9 thou/uL (4.8-10.8)
[2017-07-01 11:02] LABS: Albumin 1.8 g/dL (3.5-5.0); Anion Gap 9 mmol/L (10-20); BUN (Urea Nitrogen) 31 mg/dL (8.4-25.7); BUN/Creatinine Ratio 10.76; Calc. Creatinine Clearance 36 mL/min (70-130); Calcium 7.4 mg/dL (7.8-10.44); Carbon Dioxide 26 mmol/L (22-29); Chloride 109 mmol/L (98-107); Estimated GFR-MDRD 23; Glucose 155 mg/dL (70-105); Potassium 3.7 mmol/L (3.5-5.1); Sodium 140 mmol/L (136-145)
[2017-07-01] MEDS: Nicotine 21 MG PATCH TD SCH (12:39)
--- NOTE | 2017-07-01 13:53 | PDOC.PN ---
- Subjective Encounter Start Date: 07/01/17 Encounter Start Time: 09:00 Pt seen for followup re:QUANG. Denies chest pain or shortness of breath. - Objective MAR Reviewed: Yes Vital Signs & Weight: Vital Signs (12 hours) Temp Pulse Resp BP BP BP Pulse Ox 07/01/17 08:57 62 190/79 H 07/01/17 08:00 98.9 F 62 20 190/76 H 190/79 H 96 07/01/17 07:04 97.8 F 61 18 145/69 H 93 L Weight Weight 197 lb 6.4 oz I&O: 06/30/17 07/01/17 07/02/17 06:59 06:59 06:59 Intake Total 850 1580 120 Output Total 2075 4350 Balance -1225 -2770 120 Result Diagrams: 07/01/17 09:38 07/01/17 09:38 Additional Labs: Accuchecks 07/01/17 06/30/17 06/30/17 05:58 19:40 17:34 POC Glucose 122 H 148 H 129 H Phys Exam - Physical Examination Obese HEENT: moist MMs Neck: supple Respiratory: clear to auscultation bilateral Cardiovascular: RRR Gastrointestinal: soft R BKA Neurological: moves all 4 limbs Psychiatric: normal affect Skin: no rash Dx/Plan (1) QUANG (acute kidney injury) Code(s): N17.9 - ACUTE KIDNEY FAILURE, UNSPECIFIED Status: Acute (2) Below knee amputation status Status: Chronic Qualifiers: Laterality: right Qualified Code(s): Z89.511 - Acquired absence of right leg below knee (3) Nephrotic syndrome Code(s): N04.9 - NEPHROTIC SYNDROME WITH UNSPECIFIED MORPHOLOGIC CHANGES Status: Chronic (4) Diabetic peripheral vascular disease Code(s): E11.51 - TYPE 2 DIABETES W DIABETIC PERIPHERAL ANGIOPATH W/O GANGRENE Status: Chronic (5) Hypertension, uncontrolled Code(s): I10 - ESSENTIAL (PRIMARY) HYPERTENSION Status: Chronic (6) Hypokalemia Code(s): E87.6 - HYPOKALEMIA Status: Resolved - Plan PT/OT, out of bed/ambulate * . Add scheduled hydralazine. Continue accuchecks, insulin sliding scale. Dialysis per nephrology schedule. Discharge home after dialysis chair is arranged. Review of Systems - Review of Systems Respiratory: negative: Cough, Dry, Shortness of Breath, Hemoptysis, SOB with Excertion, Pleuritic Pain, Sputum, Wheezing Cardiovascular: negative: chest pain, palpitations, orthopnea, paroxysmal nocturnal dyspnea, edema, light headedness - Medications/Allergies Allergies/Adverse Reactions: Allergies Allergy/AdvReac Type Severity Reaction Status Date / Time No Known Allergies Allergy Verified 06/24/17 15:20 Medications: Current Medications Acetaminophen (Tylenol) 650 mg PO Q4H PRN PRN Reason: Headache/Fever or Pain Acetaminophen (Tylenol) 650 mg [place] Q4H PRN PRN Reason: Headache/Fever or Pain Acetaminophen (Tylenol) 1,000 mg PO Q6H PRN PRN Reason: Moderate to Severe Pain (6-10) Artificial Tears (Tears Naturale) 2 drop EA EYE Q6H PRN PRN Reason: DRY EYES Aspirin (Ecotrin) 81 mg PO DAILY [facility] Last Admin: 07/01/17 09:01 Dose: 81 mg Atorvastatin Calcium (Lipitor) 10 mg PO DAILY [facility] Last Admin: 07/01/17 08:57 Dose: 10 mg Bisacodyl (Dulcolax) 10 mg PO DAILYPRN PRN PRN Reason: Constipation Dextrose/Water (Dextrose 50%) 25 gm SLOW IVP PRN PRN PRN Reason: Hypoglycemia Epoetin Jesus (Procrit) 5,000 units IVP MoWeFr [facility] Glucagon (Glucagon) 1 mg IM PRN PRN PRN Reason: Hypoglycemia Heparin Sodium (Porcine) (Heparin) 5,000 units SC BID [facility] Last Admin: 07/01/17 13:46 Dose: 5,000 units Hydralazine HCl (Apresoline) 10 mg SLOW IVP Q6H PRN PRN Reason: SBP > 180 Hydralazine HCl (Apresoline) 25 mg PO Q6H PRN PRN Reason: SBP>180 Last Admin: 06/26/17 11:25 Dose: 25 mg Dextrose/Water (D5w) 1,000 mls @ 0 mls/hr IV .Q0M PRN; As Directed PRN Reason: Hypoglycemia Insulin Human Lispro (Humalog) 0 units SC .MILD SLIDING SCALE PRN PRN Reason: Mild Correctional Scale Last Admin: 06/28/17 18:07 Dose: 3 unit Metoprolol Tartrate (Lopressor) 25 mg PO BID [facility] Last Admin: 07/01/17 08:57 Dose: 25 mg Nicotine (Nicoderm Patch) 21 mg TD Q24HR [facility] Last Admin: 07/01/17 12:39 Dose: Not Given Nifedipine (Procardia Xl) 60 mg PO DAILY [facility] Last Admin: 07/01/17 08:57 Dose: 60 mg Sodium Chloride (Flush - Normal Saline) 10 ml IVF Q12HR [facility] Last Admin: 07/01/17 08:58 Dose: 10 ml Sodium Chloride (Flush - Normal Saline) 10 ml IVF PRN PRN PRN Reason: Saline Flush Tramadol HCl (Ultram) 50 mg PO Q6H PRN PRN Reason: Mild Pain (1-3) Tramadol HCl (Ultram) 100 mg PO Q6H PRN PRN Reason: Moderate Pain (4-6) Last Admin: 06/30/17 10:20 Dose: 100 mg
[2017-07-01] MEDS: hydrALAZINE 25 MG TAB PO SCH ×2 (16:36→21:51)
[2017-07-01] MEDS: HumaLOG 300 UNITS/3 ML VIAL SC PRN (22:03)
--- NOTE | 2017-07-02 08:10 | PRG ---
DATE OF SERVICE: 07/02/2017 Mr. Gonzalo Mills is doing well today. He is undergoing dialysis. His right arm fistula has goo d thrill and bruit. His dialysis catheter is functioning well. Blood draws, IV access to his femora l vein central line. At this point, his surgical wound looks good in his right arm. I have encourag ed him to exercise his right hand and arm. He should avoid blood pressure, IV access, blood draws in both arms. At this point, I will see him as needed. He [facility] weeks.
--- NOTE | 2017-07-02 10:53 | PRG ---
DATE OF SERVICE: 07/02/2017 SUBJECTIVE: The patient was seen at dialysis, sleepy, but arousable. OBJECTIVE: VITAL SIGNS: Afebrile with temperature 97.9, pulse 66, respiratory rate of 18, O2 sat 94%, blood pre ssure 150/72. HEENT: Unremarkable with moist oral mucosa. Neck is supple. No conjunctival injection or icterus. CARDIOVASCULAR: First and second heart sounds were heard. RESPIRATORY: Clear to auscultation. DIGESTIVE: Revealed a benign abdomen. EXTREMITIES: Showed peripheral edema. IMPRESSION: 1. End-stage renal disease, hemodialysis dependent. 2. Anemia of chronic kidney disease. 3. Nephrotic syndrome in the context of diabetic nephropathy. PLAN: 1. The patient is on day #4 of hemodialysis with ultrafiltration today. 2. The patient now to be on Sunday, Sunday, Sunday schedule. 3. Outpatient dialysis placement. Case management consultation to be placed. 4. Further management to be dependent on the clinical course.
[2017-07-02] MEDS: Epoetin (ESRD) 20,000 UNITS/ML IVP SCH (12:00)
[2017-07-02] MEDS: hydrALAZINE 25 MG TAB PO SCH ×4 (13:02→20:14)
[2017-07-02] MEDS: NIFEdipine XL 60 MG TAB PO SCH (13:04)
[2017-07-02] MEDS: Metoprolol Tartrate 25 MG TAB PO SCH ×2 (13:05→20:15)
[2017-07-02] MEDS: Atorvastatin Calcium 10 MG TAB PO SCH (13:05)
[2017-07-02] MEDS: Aspirin 81 mg Enteric Coated Tablet PO SCH (13:05)
[2017-07-02] MEDS: Heparin 5,000 UNITS/ML VIAL SC SCH ×2 (13:06→20:15)
[2017-07-02] MEDS: Nicotine 21 MG PATCH TD SCH (13:08)
--- NOTE | 2017-07-02 16:16 | PDOC.PN ---
- Subjective Encounter Start Date: 07/02/17 Encounter Start Time: 09:00 Pt seen for followup re: QUANG. No complaints today. - Objective Vital Signs & Weight: Vital Signs (12 hours) Temp Pulse Pulse Resp BP BP BP 07/02/17 14:59 70 134/75 07/02/17 13:10 98.0 F 70 16 173/79 H 07/02/17 13:06 62 07/02/17 13:04 70 173/89 H 07/02/17 13:02 62 173/89 H 07/02/17 08:00 96.6 F L 62 18 Pulse Ox 07/02/17 14:59 07/02/17 13:10 96 07/02/17 13:06 07/02/17 13:04 07/02/17 13:02 07/02/17 08:00 99 Weight Weight 197 lb 6.4 oz I&O: 07/01/17 07/02/17 07/03/17 06:59 06:59 06:59 Intake Total 1580 1490 Output Total 4350 4950 Balance -2770 -3460 Result Diagrams: 07/09/17 05:25 07/09/17 05:25 Additional Labs: Accuchecks 07/02/17 07/02/17 07/01/17 13:15 04:06 19:35 POC Glucose 92 98 219 H 07/01/17 17:07 POC Glucose 218 H Dx/Plan (1) QUANG (acute kidney injury) Code(s): N17.9 - ACUTE KIDNEY FAILURE, UNSPECIFIED Status: Acute (2) Below knee amputation status Status: Chronic Qualifiers: Laterality: right Qualified Code(s): Z89.511 - Acquired absence of right leg below knee (3) Nephrotic syndrome Code(s): N04.9 - NEPHROTIC SYNDROME WITH UNSPECIFIED MORPHOLOGIC CHANGES Status: Chronic (4) Diabetic peripheral vascular disease Code(s): E11.51 - TYPE 2 DIABETES W DIABETIC PERIPHERAL ANGIOPATH W/O GANGRENE Status: Chronic (5) Hypertension, uncontrolled Code(s): I10 - ESSENTIAL (PRIMARY) HYPERTENSION Status: Chronic (6) Hypokalemia Code(s): E87.6 - HYPOKALEMIA Status: Resolved - Plan * . Review of Systems - Review of Systems Respiratory: negative: Cough, Dry, Shortness of Breath, Hemoptysis, SOB with Excertion, Pleuritic Pain, Sputum, Wheezing Cardiovascular: negative: chest pain, palpitations, orthopnea, paroxysmal nocturnal dyspnea, edema, light headedness - Medications/Allergies Allergies/Adverse Reactions: Allergies Allergy/AdvReac Type Severity Reaction Status Date / Time No Known Allergies Allergy Verified 06/24/17 15:20
--- NOTE | 2017-07-02 16:29 | PDOC.PN ---
- Subjective Encounter Start Date: 07/02/17 Encounter Start Time: 09:00 Pt seen for followup re: QUANG. Denies chest pain or shortness of breath. - Objective MAR Reviewed: Yes Vital Signs & Weight: Vital Signs (12 hours) Temp Pulse Pulse Resp BP BP BP 07/02/17 14:59 70 134/75 07/02/17 13:10 98.0 F 70 16 173/79 H 07/02/17 13:06 62 07/02/17 13:04 70 173/89 H 07/02/17 13:02 62 173/89 H 07/02/17 08:00 96.6 F L 62 18 Pulse Ox 07/02/17 14:59 07/02/17 13:10 96 07/02/17 13:06 07/02/17 13:04 07/02/17 13:02 07/02/17 08:00 99 Weight Weight 197 lb 6.4 oz I&O: 07/01/17 07/02/17 07/03/17 06:59 06:59 06:59 Intake Total 1580 1490 Output Total 4350 4950 Balance -2770 -3460 Result Diagrams: 07/01/17 09:38 07/01/17 09:38 Additional Labs: Accuchecks 07/02/17 07/02/17 07/01/17 13:15 04:06 19:35 POC Glucose 92 98 219 H 07/01/17 17:07 POC Glucose 218 H Phys Exam - Physical Examination Constitutional: NAD HEENT: moist MMs Neck: supple Respiratory: clear to auscultation bilateral Cardiovascular: RRR Gastrointestinal: positive bowel sounds s/p R BKA Neurological: moves all 4 limbs Psychiatric: normal affect Dx/Plan (1) QUANG (acute kidney injury) Code(s): N17.9 - ACUTE KIDNEY FAILURE, UNSPECIFIED Status: Acute (2) Below knee amputation status Status: Chronic Qualifiers: Laterality: right Qualified Code(s): Z89.511 - Acquired absence of right leg below knee (3) Nephrotic syndrome Code(s): N04.9 - NEPHROTIC SYNDROME WITH UNSPECIFIED MORPHOLOGIC CHANGES Status: Chronic (4) Diabetic peripheral vascular disease Code(s): E11.51 - TYPE 2 DIABETES W DIABETIC PERIPHERAL ANGIOPATH W/O GANGRENE Status: Chronic (5) Hypertension, uncontrolled Code(s): I10 - ESSENTIAL (PRIMARY) HYPERTENSION Status: Chronic (6) Hypokalemia Code(s): E87.6 - HYPOKALEMIA Status: Resolved - Plan out of bed/ambulate * . Dialysis per nephrology service. Needs dialysis chair. Review of Systems - Review of Systems Respiratory: negative: Cough, Dry, Shortness of Breath, Hemoptysis, SOB with Excertion, Pleuritic Pain, Sputum, Wheezing Cardiovascular: negative: chest pain, palpitations, orthopnea, paroxysmal nocturnal dyspnea, edema, light headedness - Medications/Allergies Allergies/Adverse Reactions: Allergies Allergy/AdvReac Type Severity Reaction Status Date / Time No Known Allergies Allergy Verified 06/24/17 15:20 Medications: Current Medications Acetaminophen (Tylenol) 650 mg PO Q4H PRN PRN Reason: Headache/Fever or Pain Acetaminophen (Tylenol) 650 mg [place] Q4H PRN PRN Reason: Headache/Fever or Pain Acetaminophen (Tylenol) 1,000 mg PO Q6H PRN PRN Reason: Moderate to Severe Pain (6-10) Artificial Tears (Tears Naturale) 2 drop EA EYE Q6H PRN PRN Reason: DRY EYES Aspirin (Ecotrin) 81 mg PO DAILY [facility] Last Admin: 07/02/17 13:05 Dose: 81 mg Atorvastatin Calcium (Lipitor) 10 mg PO DAILY [facility] Last Admin: 07/02/17 13:05 Dose: 10 mg Bisacodyl (Dulcolax) 10 mg PO DAILYPRN PRN PRN Reason: Constipation Dextrose/Water (Dextrose 50%) 25 gm SLOW IVP PRN PRN PRN Reason: Hypoglycemia Epoetin Jesus (Procrit) 5,000 units IVP MoWeFr [facility] Last Admin: 07/02/17 12:00 Dose: 5,000 units Glucagon (Glucagon) 1 mg IM PRN PRN PRN Reason: Hypoglycemia Heparin Sodium (Porcine) (Heparin) 5,000 units SC BID [facility] Last Admin: 07/02/17 13:06 Dose: Not Given Hydralazine HCl (Apresoline) 10 mg SLOW IVP Q6H PRN PRN Reason: SBP > 180 Hydralazine HCl (Apresoline) 25 mg PO Q6H PRN PRN Reason: SBP>180 Last Admin: 06/26/17 11:25 Dose: 25 mg Hydralazine HCl (Apresoline) 25 mg PO QID [facility] Last Admin: 07/02/17 13:06 Dose: Not Given Dextrose/Water (D5w) 1,000 mls @ 0 mls/hr IV .Q0M PRN; As Directed PRN Reason: Hypoglycemia Insulin Human Lispro (Humalog) 0 units SC .MILD SLIDING SCALE PRN PRN Reason: Mild Correctional Scale Last Admin: 07/01/17 22:03 Dose: 3 unit Metoprolol Tartrate (Lopressor) 25 mg PO BID [facility] Last Admin: 07/02/17 13:05 Dose: 25 mg Nicotine (Nicoderm Patch) 21 mg TD Q24HR [facility] Last Admin: 07/02/17 13:08 Dose: Not Given Nifedipine (Procardia Xl) 60 mg PO DAILY [facility] Last Admin: 07/02/17 13:04 Dose: 60 mg Sodium Chloride (Flush - Normal Saline) 10 ml IVF Q12HR [facility] Last Admin: 07/02/17 13:07 Dose: 10 ml Sodium Chloride (Flush - Normal Saline) 10 ml IVF PRN PRN PRN Reason: Saline Flush Tramadol HCl (Ultram) 50 mg PO Q6H PRN PRN Reason: Mild Pain (1-3) Tramadol HCl (Ultram) 100 mg PO Q6H PRN PRN Reason: Moderate Pain (4-6) Last Admin: 06/30/17 10:20 Dose: 100 mg
[2017-07-03] MEDS: Aspirin 81 mg Enteric Coated Tablet PO SCH (08:07)
[2017-07-03] MEDS: Metoprolol Tartrate 25 MG TAB PO SCH ×2 (08:11→19:59)
[2017-07-03] MEDS: hydrALAZINE 25 MG TAB PO SCH ×4 (08:12→19:59)
[2017-07-03] MEDS: NIFEdipine XL 60 MG TAB PO SCH (08:12)
[2017-07-03] MEDS: Heparin 5,000 UNITS/ML VIAL SC SCH ×2 (08:12→19:59)
[2017-07-03] MEDS: Atorvastatin Calcium 10 MG TAB PO SCH (08:12)
[2017-07-03] MEDS: Nicotine 21 MG PATCH TD SCH (14:10)
--- NOTE | 2017-07-03 17:28 | PDOC.PN ---
- Subjective Encounter Start Date: 07/03/17 Encounter Start Time: 08:40 Pt seen for followup re: QUANG. No complaints today. - Objective Vital Signs & Weight: Vital Signs (12 hours) Temp Pulse Pulse Pulse Pulse Resp BP 07/03/17 16:12 66 07/03/17 16:00 98.0 F 68 20 07/03/17 14:10 66 07/03/17 11:35 98.3 F 66 20 07/03/17 08:50 67 68 69 07/03/17 08:12 60 154/73 H 07/03/17 08:00 98.6 F 67 20 07/03/17 07:29 98.6 F 60 20 BP BP BP BP Pulse Ox Pulse Ox Pulse Ox 07/03/17 16:12 07/03/17 16:00 131/73 94 L 07/03/17 14:10 07/03/17 11:35 142/74 H 93 L 07/03/17 08:50 155/73 H 127/71 154/72 H 95 96 07/03/17 08:12 07/03/17 08:00 95 07/03/17 07:29 154/73 H 93 L Pulse Ox 07/03/17 16:12 07/03/17 16:00 07/03/17 14:10 07/03/17 11:35 07/03/17 08:50 95 07/03/17 08:12 07/03/17 08:00 07/03/17 07:29 Weight Weight 197 lb 6.4 oz I&O: 07/02/17 07/03/17 07/04/17 06:59 06:59 06:59 Intake Total 1490 1880 Output Total 4950 0959 Balance -3460 -2910 Result Diagrams: 07/01/17 09:38 07/01/17 09:38 Additional Labs: Accuchecks 07/03/17 07/03/17 07/03/17 16:24 11:36 03:41 POC Glucose 204 H 203 H 109 07/02/17 19:16 POC Glucose 161 H Phys Exam - Physical Examination Constitutional: NAD HEENT: moist MMs Neck: supple Respiratory: clear to auscultation bilateral Cardiovascular: RRR Neurological: moves all 4 limbs Psychiatric: normal affect Dx/Plan (1) QUANG (acute kidney injury) Code(s): N17.9 - ACUTE KIDNEY FAILURE, UNSPECIFIED Status: Acute (2) Below knee amputation status Status: Chronic Qualifiers: Laterality: right Qualified Code(s): Z89.511 - Acquired absence of right leg below knee (3) Nephrotic syndrome Code(s): N04.9 - NEPHROTIC SYNDROME WITH UNSPECIFIED MORPHOLOGIC CHANGES Status: Chronic (4) Diabetic peripheral vascular disease Code(s): E11.51 - TYPE 2 DIABETES W DIABETIC PERIPHERAL ANGIOPATH W/O GANGRENE Status: Chronic (5) Hypertension, uncontrolled Code(s): I10 - ESSENTIAL (PRIMARY) HYPERTENSION Status: Chronic (6) Hypokalemia Code(s): E87.6 - HYPOKALEMIA Status: Resolved - Plan out of bed/ambulate * . Awaiting dialysis chair. Dialysis per nephrology service. Continue accuchecks, insulin sliding scale. Review of Systems - Review of Systems Constitutional: negative: fever, chills, sweats, weakness, malaise Skin: negative: Rash, Lesions, Giles, Bruising - Medications/Allergies Allergies/Adverse Reactions: Allergies Allergy/AdvReac Type Severity Reaction Status Date / Time No Known Allergies Allergy Verified 06/24/17 15:20 Medications: Current Medications Acetaminophen (Tylenol) 650 mg PO Q4H PRN PRN Reason: Headache/Fever or Pain Acetaminophen (Tylenol) 650 mg [place] Q4H PRN PRN Reason: Headache/Fever or Pain Acetaminophen (Tylenol) 1,000 mg PO Q6H PRN PRN Reason: Moderate to Severe Pain (6-10) Artificial Tears (Tears Naturale) 2 drop EA EYE Q6H PRN PRN Reason: DRY EYES Aspirin (Ecotrin) 81 mg PO DAILY [facility] Last Admin: 07/03/17 08:07 Dose: 81 mg Atorvastatin Calcium (Lipitor) 10 mg PO DAILY [facility] Last Admin: 07/03/17 08:12 Dose: 10 mg Bisacodyl (Dulcolax) 10 mg PO DAILYPRN PRN PRN Reason: Constipation Dextrose/Water (Dextrose 50%) 25 gm SLOW IVP PRN PRN PRN Reason: Hypoglycemia Epoetin Jesus (Procrit) 5,000 units IVP MoWeFr [facility] Last Admin: 07/02/17 12:00 Dose: 5,000 units Glucagon (Glucagon) 1 mg IM PRN PRN PRN Reason: Hypoglycemia Heparin Sodium (Porcine) (Heparin) 5,000 units SC BID [facility] Last Admin: 07/03/17 08:12 Dose: 5,000 units Hydralazine HCl (Apresoline) 10 mg SLOW IVP Q6H PRN PRN Reason: SBP > 180 Hydralazine HCl (Apresoline) 25 mg PO Q6H PRN PRN Reason: SBP>180 Last Admin: 06/26/17 11:25 Dose: 25 mg Hydralazine HCl (Apresoline) 25 mg PO QID [facility] Last Admin: 07/03/17 16:12 Dose: 25 mg Dextrose/Water (D5w) 1,000 mls @ 0 mls/hr IV .Q0M PRN; As Directed PRN Reason: Hypoglycemia Insulin Human Lispro (Humalog) 0 units SC .MILD SLIDING SCALE PRN PRN Reason: Mild Correctional Scale Last Admin: 07/01/17 22:03 Dose: 3 unit Metoprolol Tartrate (Lopressor) 25 mg PO BID [facility] Last Admin: 07/03/17 08:11 Dose: 25 mg Nicotine (Nicoderm Patch) 21 mg TD Q24HR [facility] Last Admin: 07/03/17 14:10 Dose: Not Given Nifedipine (Procardia Xl) 60 mg PO DAILY [facility] Last Admin: 07/03/17 08:12 Dose: 60 mg Sodium Chloride (Flush - Normal Saline) 10 ml IVF Q12HR [facility] Last Admin: 07/03/17 08:13 Dose: 10 ml Sodium Chloride (Flush - Normal Saline) 10 ml IVF PRN PRN PRN Reason: Saline Flush Tramadol HCl (Ultram) 50 mg PO Q6H PRN PRN Reason: Mild Pain (1-3) Tramadol HCl (Ultram) 100 mg PO Q6H PRN PRN Reason: Moderate Pain (4-6) Last Admin: 06/30/17 10:20 Dose: 100 mg
--- NOTE | 2017-07-03 18:59 | PRG ---
DATE OF SERVICE: 07/03/2017 SUBJECTIVE: The patient was seen and examined, complaining of his diet. Noted with the following vi zaria signs. OBJECTIVE: VITAL SIGNS: Afebrile with temperature 98, pulse 68, respiratory rate 20, O2 saturation 94% with blo od pressure 131/73. HEENT: Unremarkable. CARDIOVASCULAR SYSTEM: First and second heart sounds were heard. RESPIRATORY SYSTEM: Clear to auscultation. DIGESTIVE SYSTEM: Revealed benign abdomen with positive bowel sounds. EXTREMITIES: Showed much improved peripheral edema. IMPRESSION: 1. End-stage renal disease in the context of problem #2. 2. Diabetic nephropathy. 3. Anasarca due to diabetic nephropathy, responding to ultrafiltration with hemodialysis. PLAN: 1. Gently liberalize his diet, changing him from renal to diabetic diet only. 2. Outpatient dialysis placement work in progress. vendor manager is on the case. 3. Further management to be dependent on the clinical course.
[2017-07-04] MEDS: hydrALAZINE 25 MG TAB PO SCH ×4 (11:53→19:56)
[2017-07-04] MEDS: Metoprolol Tartrate 25 MG TAB PO SCH ×2 (11:53→19:57)
[2017-07-04] MEDS: Aspirin 81 mg Enteric Coated Tablet PO SCH (11:58)
[2017-07-04] MEDS: Heparin 5,000 UNITS/ML VIAL SC SCH ×2 (11:59→19:57)
[2017-07-04] MEDS: Atorvastatin Calcium 10 MG TAB PO SCH (11:59)
[2017-07-04] MEDS: NIFEdipine XL 60 MG TAB PO SCH (11:59)
[2017-07-04] MEDS: Epoetin (ESRD) 20,000 UNITS/ML IVP SCH (13:30)
[2017-07-04] MEDS: Nicotine 21 MG PATCH TD SCH (13:38)
--- NOTE | 2017-07-04 13:39 | PDOC.PN ---
- Subjective Encounter Start Date: 07/04/17 Encounter Start Time: 07:40 Pt seen for followup re: QUANG. No complaints today. - Objective MAR Reviewed: Yes Vital Signs & Weight: Vital Signs (12 hours) Temp Pulse Resp BP BP Pulse Ox 07/04/17 11:59 67 147/74 H 07/04/17 11:53 70 147/74 H 07/04/17 11:45 98.4 F 66 14 147/74 H 93 L 07/04/17 11:43 98.4 F 66 14 93 L Weight Weight 197 lb 6.4 oz I&O: 07/03/17 07/04/17 07/05/17 06:59 06:59 06:59 Intake Total 1880 1510 Output Total 4790 201 Balance -2910 1309 Result Diagrams: 07/01/17 09:38 07/01/17 09:38 Additional Labs: Accuchecks 07/04/17 07/04/17 07/03/17 12:06 04:20 19:12 POC Glucose 98 148 H 214 H 07/03/17 16:24 POC Glucose 204 H Phys Exam - Physical Examination Constitutional: NAD HEENT: moist MMs Respiratory: clear to auscultation bilateral Cardiovascular: RRR Neurological: moves all 4 limbs Psychiatric: normal affect Dx/Plan (1) QUANG (acute kidney injury) Code(s): N17.9 - ACUTE KIDNEY FAILURE, UNSPECIFIED Status: Acute (2) Below knee amputation status Status: Chronic Qualifiers: Laterality: right Qualified Code(s): Z89.511 - Acquired absence of right leg below knee (3) Nephrotic syndrome Code(s): N04.9 - NEPHROTIC SYNDROME WITH UNSPECIFIED MORPHOLOGIC CHANGES Status: Chronic (4) Diabetic peripheral vascular disease Code(s): E11.51 - TYPE 2 DIABETES W DIABETIC PERIPHERAL ANGIOPATH W/O GANGRENE Status: Chronic (5) Hypertension, uncontrolled Code(s): I10 - ESSENTIAL (PRIMARY) HYPERTENSION Status: Chronic (6) Hypokalemia Code(s): E87.6 - HYPOKALEMIA Status: Resolved - Plan * . Awaiting dialysis chair. Review of Systems - Review of Systems Respiratory: negative: Cough, Dry, Shortness of Breath, Hemoptysis, SOB with Excertion, Pleuritic Pain, Sputum, Wheezing - Medications/Allergies Allergies/Adverse Reactions: Allergies Allergy/AdvReac Type Severity Reaction Status Date / Time No Known Allergies Allergy Verified 06/24/17 15:20 Medications: Current Medications Acetaminophen (Tylenol) 650 mg PO Q4H PRN PRN Reason: Headache/Fever or Pain Acetaminophen (Tylenol) 650 mg [place] Q4H PRN PRN Reason: Headache/Fever or Pain Acetaminophen (Tylenol) 1,000 mg PO Q6H PRN PRN Reason: Moderate to Severe Pain (6-10) Artificial Tears (Tears Naturale) 2 drop EA EYE Q6H PRN PRN Reason: DRY EYES Aspirin (Ecotrin) 81 mg PO DAILY [facility] Last Admin: 07/04/17 11:58 Dose: 81 mg Atorvastatin Calcium (Lipitor) 10 mg PO DAILY [facility] Last Admin: 07/04/17 11:59 Dose: 10 mg Bisacodyl (Dulcolax) 10 mg PO DAILYPRN PRN PRN Reason: Constipation Dextrose/Water (Dextrose 50%) 25 gm SLOW IVP PRN PRN PRN Reason: Hypoglycemia Epoetin Jesus (Procrit) 5,000 units IVP MoWeFr [facility] Last Admin: 07/04/17 13:30 Dose: 5,000 units Glucagon (Glucagon) 1 mg IM PRN PRN PRN Reason: Hypoglycemia Heparin Sodium (Porcine) (Heparin) 5,000 units SC BID [facility] Last Admin: 07/04/17 11:59 Dose: Not Given Hydralazine HCl (Apresoline) 10 mg SLOW IVP Q6H PRN PRN Reason: SBP > 180 Hydralazine HCl (Apresoline) 25 mg PO Q6H PRN PRN Reason: SBP>180 Last Admin: 06/26/17 11:25 Dose: 25 mg Hydralazine HCl (Apresoline) 25 mg PO QID [facility] Last Admin: 07/04/17 11:53 Dose: 25 mg Dextrose/Water (D5w) 1,000 mls @ 0 mls/hr IV .Q0M PRN; As Directed PRN Reason: Hypoglycemia Insulin Human Lispro (Humalog) 0 units SC .MILD SLIDING SCALE PRN PRN Reason: Mild Correctional Scale Last Admin: 07/01/17 22:03 Dose: 3 unit Metoprolol Tartrate (Lopressor) 25 mg PO BID [facility] Last Admin: 07/04/17 11:53 Dose: 25 mg Nicotine (Nicoderm Patch) 21 mg TD Q24HR [facility] Last Admin: 07/03/17 14:10 Dose: Not Given Nifedipine (Procardia Xl) 60 mg PO DAILY [facility] Last Admin: 07/04/17 11:59 Dose: 60 mg Sodium Chloride (Flush - Normal Saline) 10 ml IVF Q12HR [facility] Last Admin: 07/04/17 12:00 Dose: 10 ml Sodium Chloride (Flush - Normal Saline) 10 ml IVF PRN PRN PRN Reason: Saline Flush Tramadol HCl (Ultram) 50 mg PO Q6H PRN PRN Reason: Mild Pain (1-3) Tramadol HCl (Ultram) 100 mg PO Q6H PRN PRN Reason: Moderate Pain (4-6) Last Admin: 06/30/17 10:20 Dose: 100 mg
[2017-07-04] MEDS ORDERED: Tuberculin PPD 0.1 ML VIAL I-DERMAL SCH (14:45)
--- NOTE | 2017-07-04 15:09 | PRG ---
DATE OF SERVICE: 07/04/2017 The patient was seen and examined at dialysis with no new complaint, noted with the following vital s igns. PHYSICAL EXAMINATION: VITAL SIGNS: Afebrile with temperature 98.4, pulse 66, respiratory rate 14, blood pressure 147/74. HEENT: Unremarkable with moist oral mucosa. Neck is supple. No conjunctival injection or icterus. CARDIOVASCULAR: First and second heart sounds were heard. RESPIRATORY: Clear to auscultation. DIGESTIVE: Revealed a benign abdomen. EXTREMITIES: Showed improving peripheral edema. NEUROLOGIC: Alert and oriented. No lateralizing signs. LYMPHATICS: No peripheral lymphadenopathy. IMPRESSION: 1. End-stage renal disease, on hemodialysis Sunday, Sunday, and Sunday. 2. Anasarca in the context of problem #3. 3. Diabetic nephropathy. PLAN: 1. Once the case management manager secures a spot for him from the renal standpoint, the patient will be due f or discharge. 2. Patient to benefit from physical therapy evaluation and treatment. 3. Further management to be dependent on the clinical course.
[2017-07-05] MEDS: Aspirin 81 mg Enteric Coated Tablet PO SCH (07:42)
[2017-07-05] MEDS: Atorvastatin Calcium 10 MG TAB PO SCH (07:43)
[2017-07-05] MEDS: hydrALAZINE 25 MG TAB PO SCH ×4 (07:43→21:07)
[2017-07-05] MEDS: Metoprolol Tartrate 25 MG TAB PO SCH ×2 (07:44→21:07)
[2017-07-05] MEDS: NIFEdipine XL 60 MG TAB PO SCH (07:44)
[2017-07-05] MEDS: Heparin 5,000 UNITS/ML VIAL SC SCH ×2 (07:44→21:07)
[2017-07-05 11:24] VITALS: BMI 31.8
[2017-07-05] MEDS: Nicotine 21 MG PATCH TD SCH (14:01)
--- NOTE | 2017-07-05 17:27 | PDOC.PN ---
- Subjective Encounter Start Date: 07/05/17 Encounter Start Time: 11:20 Pt seen for followup re: QUANG. Denies chest pain or shortness of breath, fevers or chills. - Objective Vital Signs & Weight: Vital Signs (12 hours) Temp Pulse Resp BP BP Pulse Ox 07/05/17 16:29 64 113/67 07/05/17 14:00 64 113/67 07/05/17 12:00 98.6 F 65 20 127/68 95 07/05/17 08:00 98.7 F 65 18 150/68 H 95 07/05/17 07:44 65 150/68 H 07/05/17 07:43 65 150/68 H Weight Admit Weight 205 lb 4.8 oz Weight 197 lb 6.4 oz I&O: 07/04/17 07/05/17 07/06/17 06:59 06:59 06:59 Intake Total 1510 150 Output Total 201 250 Balance 1309 -100 Result Diagrams: 07/01/17 09:38 07/01/17 09:38 Additional Labs: Accuchecks 07/05/17 07/05/17 07/05/17 16:17 11:39 06:03 POC Glucose 214 H 190 H 99 07/04/17 20:08 POC Glucose 268 H Phys Exam - Physical Examination Constitutional: NAD HEENT: moist MMs Neck: supple Respiratory: clear to auscultation bilateral Cardiovascular: RRR Gastrointestinal: soft s/p R BKA Neurological: moves all 4 limbs Dx/Plan (1) QUANG (acute kidney injury) Code(s): N17.9 - ACUTE KIDNEY FAILURE, UNSPECIFIED Status: Acute (2) Below knee amputation status Status: Chronic Qualifiers: Laterality: right Qualified Code(s): Z89.511 - Acquired absence of right leg below knee (3) Nephrotic syndrome Code(s): N04.9 - NEPHROTIC SYNDROME WITH UNSPECIFIED MORPHOLOGIC CHANGES Status: Chronic (4) Diabetic peripheral vascular disease Code(s): E11.51 - TYPE 2 DIABETES W DIABETIC PERIPHERAL ANGIOPATH W/O GANGRENE Status: Chronic (5) Hypertension, uncontrolled Code(s): I10 - ESSENTIAL (PRIMARY) HYPERTENSION Status: Chronic (6) Hypokalemia Code(s): E87.6 - HYPOKALEMIA Status: Resolved - Plan * . Discharge when dialysis chair is arranged. Dialysis schedule per nephrology service. Review of Systems - Medications/Allergies Allergies/Adverse Reactions: Allergies Allergy/AdvReac Type Severity Reaction Status Date / Time No Known Allergies Allergy Verified 06/24/17 15:20 Medications: Current Medications Acetaminophen (Tylenol) 650 mg PO Q4H PRN PRN Reason: Headache/Fever or Pain Acetaminophen (Tylenol) 650 mg [place] Q4H PRN PRN Reason: Headache/Fever or Pain Acetaminophen (Tylenol) 1,000 mg PO Q6H PRN PRN Reason: Moderate to Severe Pain (6-10) Artificial Tears (Tears Naturale) 2 drop EA EYE Q6H PRN PRN Reason: DRY EYES Aspirin (Ecotrin) 81 mg PO DAILY [facility] Last Admin: 07/05/17 07:42 Dose: 81 mg Atorvastatin Calcium (Lipitor) 10 mg PO DAILY [facility] Last Admin: 07/05/17 07:43 Dose: 10 mg Bisacodyl (Dulcolax) 10 mg PO DAILYPRN PRN PRN Reason: Constipation Dextrose/Water (Dextrose 50%) 25 gm SLOW IVP PRN PRN PRN Reason: Hypoglycemia Epoetin Jesus (Procrit) 5,000 units IVP MoWeFr [facility] Last Admin: 07/04/17 13:30 Dose: 5,000 units Glucagon (Glucagon) 1 mg IM PRN PRN PRN Reason: Hypoglycemia Heparin Sodium (Porcine) (Heparin) 5,000 units SC BID [facility] Last Admin: 07/05/17 07:44 Dose: 5,000 units Hydralazine HCl (Apresoline) 10 mg SLOW IVP Q6H PRN PRN Reason: SBP > 180 Hydralazine HCl (Apresoline) 25 mg PO Q6H PRN PRN Reason: SBP>180 Last Admin: 06/26/17 11:25 Dose: 25 mg Hydralazine HCl (Apresoline) 25 mg PO QID [facility] Last Admin: 07/05/17 16:29 Dose: 25 mg Dextrose/Water (D5w) 1,000 mls @ 0 mls/hr IV .Q0M PRN; As Directed PRN Reason: Hypoglycemia Insulin Human Lispro (Humalog) 0 units SC .MILD SLIDING SCALE PRN PRN Reason: Mild Correctional Scale Last Admin: 07/01/17 22:03 Dose: 3 unit Metoprolol Tartrate (Lopressor) 25 mg PO BID [facility] Last Admin: 07/05/17 07:44 Dose: 25 mg Nicotine (Nicoderm Patch) 21 mg TD Q24HR [facility] Last Admin: 07/05/17 14:01 Dose: Not Given Nifedipine (Procardia Xl) 60 mg PO DAILY [facility] Last Admin: 07/05/17 07:44 Dose: 60 mg Sodium Chloride (Flush - Normal Saline) 10 ml IVF Q12HR [facility] Last Admin: 07/05/17 07:45 Dose: 10 ml Sodium Chloride (Flush - Normal Saline) 10 ml IVF PRN PRN PRN Reason: Saline Flush Tramadol HCl (Ultram) 50 mg PO Q6H PRN PRN Reason: Mild Pain (1-3) Tramadol HCl (Ultram) 100 mg PO Q6H PRN PRN Reason: Moderate Pain (4-6) Last Admin: 06/30/17 10:20 Dose: 100 mg Tuberculin PPD (Aplisol) 0.1 ml I-DERMAL ASDIR [facility] Stop: 07/07/17 14:46 Last Admin: 07/04/17 17:04 Dose: 0.1 ml
--- NOTE | 2017-07-05 20:55 | PRG ---
DATE OF SERVICE: 07/05/2017 SUBJECTIVE: The patient was seen and examined with no new complaints with the following vital signs. OBJECTIVE: VITAL SIGNS: Afebrile with temperature 98.6, pulse 65, respiratory rate of 20, blood pressure 113/67 . HEENT: Unremarkable. CARDIOVASCULAR: First and second heart sounds were heard. RESPIRATORY: Clear to auscultation. ABDOMEN: Digestive system revealed a benign abdomen. EXTREMITIES: Showed improved peripheral edema. IMPRESSION: 1. End-stage renal disease, hemodialysis dependent. 2. Nephrotic syndrome in the context of problem #3. 3. Diabetic nephropathy. PLAN: 1. Patient to continue with current regimen of hemodialysis. 2. Outpatient dialysis placement is in progress. 3. Further management to be dependent on the clinical course.
[2017-07-06] MEDS ORDERED: Heparin 10,000 UNITS/ 10 ML VIAL ONE (06:33)
[2017-07-06] MEDS: Heparin 5,000 UNITS/ML VIAL SC SCH ×2 (08:58→22:46)
[2017-07-06] MEDS: hydrALAZINE 25 MG TAB PO SCH ×4 (08:59→22:08)
--- NOTE | 2017-07-06 14:27 | PDOC.PN ---
- Subjective Encounter Start Date: 07/06/17 Encounter Start Time: 09:00 Pt seen for followup re: QUANG. No complaints today. - Objective MAR Reviewed: Yes Vital Signs & Weight: Vital Signs (12 hours) Temp Pulse Resp BP BP Pulse Ox 07/06/17 08:59 65 166/82 H 07/06/17 07:51 98.6 F 65 18 166/82 H 95 07/06/17 07:45 98.8 F 72 18 96 Weight Admit Weight 205 lb 4.8 oz Weight 197 lb 6.4 oz I&O: 07/05/17 07/06/17 07/07/17 06:59 06:59 06:59 Intake Total 150 1750 Output Total 250 900 Balance -100 850 Result Diagrams: 07/01/17 09:38 07/01/17 09:38 Additional Labs: Accuchecks 07/06/17 07/05/17 07/05/17 05:26 19:32 16:17 POC Glucose 139 H 207 H 214 H Phys Exam - Physical Examination Constitutional: NAD HEENT: moist MMs Neck: supple Respiratory: clear to auscultation bilateral s/p R BKA Psychiatric: normal affect Dx/Plan (1) QUANG (acute kidney injury) Code(s): N17.9 - ACUTE KIDNEY FAILURE, UNSPECIFIED Status: Acute (2) Below knee amputation status Status: Chronic Qualifiers: Laterality: right Qualified Code(s): Z89.511 - Acquired absence of right leg below knee (3) Nephrotic syndrome Code(s): N04.9 - NEPHROTIC SYNDROME WITH UNSPECIFIED MORPHOLOGIC CHANGES Status: Chronic (4) Diabetic peripheral vascular disease Code(s): E11.51 - TYPE 2 DIABETES W DIABETIC PERIPHERAL ANGIOPATH W/O GANGRENE Status: Chronic (5) Hypertension, uncontrolled Code(s): I10 - ESSENTIAL (PRIMARY) HYPERTENSION Status: Chronic (6) Hypokalemia Code(s): E87.6 - HYPOKALEMIA Status: Resolved - Plan * . Awaiting dialysis bed. Dialysis per nephrology service. Review of Systems - Review of Systems Respiratory: negative: Cough, Dry, Shortness of Breath, Hemoptysis, SOB with Excertion, Pleuritic Pain, Sputum, Wheezing Cardiovascular: negative: chest pain, palpitations, orthopnea, paroxysmal nocturnal dyspnea, edema, light headedness - Medications/Allergies Allergies/Adverse Reactions: Allergies Allergy/AdvReac Type Severity Reaction Status Date / Time No Known Allergies Allergy Verified 06/24/17 15:20 Medications: Current Medications Acetaminophen (Tylenol) 650 mg PO Q4H PRN PRN Reason: Headache/Fever or Pain Acetaminophen (Tylenol) 650 mg [place] Q4H PRN PRN Reason: Headache/Fever or Pain Acetaminophen (Tylenol) 1,000 mg PO Q6H PRN PRN Reason: Moderate to Severe Pain (6-10) Artificial Tears (Tears Naturale) 2 drop EA EYE Q6H PRN PRN Reason: DRY EYES Aspirin (Ecotrin) 81 mg PO DAILY [facility] Last Admin: 07/05/17 07:42 Dose: 81 mg Atorvastatin Calcium (Lipitor) 10 mg PO DAILY [facility] Last Admin: 07/05/17 07:43 Dose: 10 mg Bisacodyl (Dulcolax) 10 mg PO DAILYPRN PRN PRN Reason: Constipation Dextrose/Water (Dextrose 50%) 25 gm SLOW IVP PRN PRN PRN Reason: Hypoglycemia Epoetin Jesus (Procrit) 5,000 units IVP MoWeFr [facility] Last Admin: 07/04/17 13:30 Dose: 5,000 units Glucagon (Glucagon) 1 mg IM PRN PRN PRN Reason: Hypoglycemia Heparin Sodium (Porcine) (Heparin) 5,000 units SC BID [facility] Last Admin: 07/06/17 08:58 Dose: 5,000 units Hydralazine HCl (Apresoline) 10 mg SLOW IVP Q6H PRN PRN Reason: SBP > 180 Hydralazine HCl (Apresoline) 25 mg PO Q6H PRN PRN Reason: SBP>180 Last Admin: 06/26/17 11:25 Dose: 25 mg Hydralazine HCl (Apresoline) 25 mg PO QID [facility] Last Admin: 07/06/17 08:59 Dose: 25 mg Dextrose/Water (D5w) 1,000 mls @ 0 mls/hr IV .Q0M PRN; As Directed PRN Reason: Hypoglycemia Insulin Human Lispro (Humalog) 0 units SC .MILD SLIDING SCALE PRN PRN Reason: Mild Correctional Scale Last Admin: 07/01/17 22:03 Dose: 3 unit Metoprolol Tartrate (Lopressor) 25 mg PO BID [facility] Last Admin: 07/05/17 21:07 Dose: 25 mg Nicotine (Nicoderm Patch) 21 mg TD Q24HR [facility] Last Admin: 07/05/17 14:01 Dose: Not Given Nifedipine (Procardia Xl) 60 mg PO DAILY [facility] Last Admin: 07/05/17 07:44 Dose: 60 mg Sodium Chloride (Flush - Normal Saline) 10 ml IVF Q12HR [facility] Last Admin: 07/05/17 21:08 Dose: 10 ml Sodium Chloride (Flush - Normal Saline) 10 ml IVF PRN PRN PRN Reason: Saline Flush Tramadol HCl (Ultram) 50 mg PO Q6H PRN PRN Reason: Mild Pain (1-3) Tramadol HCl (Ultram) 100 mg PO Q6H PRN PRN Reason: Moderate Pain (4-6) Last Admin: 06/30/17 10:20 Dose: 100 mg Tuberculin PPD (Aplisol) 0.1 ml I-DERMAL ASDIR [facility] Stop: 07/07/17 14:46 Last Admin: 07/04/17 17:04 Dose: 0.1 ml
[2017-07-06] MEDS: NIFEdipine XL 60 MG TAB PO SCH (15:43)
[2017-07-06] MEDS: Atorvastatin Calcium 10 MG TAB PO SCH (15:43)
[2017-07-06] MEDS: Metoprolol Tartrate 25 MG TAB PO SCH ×2 (15:43→22:08)
[2017-07-06] MEDS: Aspirin 81 mg Enteric Coated Tablet PO SCH (15:44)
[2017-07-06] MEDS: Nicotine 21 MG PATCH TD SCH (15:45)
--- NOTE | 2017-07-06 16:13 | PRG ---
DATE OF SERVICE: 07/06/2017 SUBJECTIVE: The patient was seen and examined at dialysis with no new complaints and noted with the following. OBJECTIVE: VITAL SIGNS: Afebrile with a temperature of 98.6, pulse 65, blood pressure 166/82, respiratory rate 18 and O2 saturation 95%. HEENT: Unremarkable with moist oral mucosa. NECK: Supple. CARDIOVASCULAR SYSTEM: First and second heart sounds were heard. RESPIRATORY SYSTEM: Clear to auscultation. DIGESTIVE SYSTEM: Revealed an obese abdomen. EXTREMITIES: Showed 2+ peripheral edema. IMPRESSION: 1. End-stage renal disease, hemodialysis dependent. 2. Anasarca in the context of nephrotic syndrome. PLAN: 1. The patient to continue with current hemodialysis regimen. 2. The patient has been approved for outpatient dialysis placement to resume dialysis on Sunday. Therefore, from the renal standpoint once the disposition plan has been finalized, patient s hould be good to be discharged.
[2017-07-06] MEDS: Epoetin (ESRD) 20,000 UNITS/ML IVP SCH ×2 (16:45→17:30)
[2017-07-06] MEDS: Acetaminophen 500 MG TAB PO PRN (21:59)
[2017-07-07] MEDS: Aspirin 81 mg Enteric Coated Tablet PO SCH (10:24)
[2017-07-07] MEDS: Atorvastatin Calcium 10 MG TAB PO SCH (10:24)
[2017-07-07] MEDS: Heparin 5,000 UNITS/ML VIAL SC SCH ×2 (10:24→20:35)
[2017-07-07] MEDS: NIFEdipine XL 60 MG TAB PO SCH (10:25)
[2017-07-07] MEDS: hydrALAZINE 25 MG TAB PO SCH ×4 (10:25→20:35)
[2017-07-07] MEDS: Metoprolol Tartrate 25 MG TAB PO SCH ×2 (10:25→20:35)
[2017-07-07] MEDS: HumaLOG 300 UNITS/3 ML VIAL SC PRN (11:44)
[2017-07-07] MEDS: Acetaminophen 500 MG TAB PO PRN (13:54)
[2017-07-07] MEDS: Nicotine 21 MG PATCH TD SCH (13:57)
--- NOTE | 2017-07-07 16:33 | PDOC.PN ---
- Subjective Encounter Start Date: 07/07/17 Encounter Start Time: 08:40 Pt seen for followup re: QUANG. No complaints today. - Objective Vital Signs & Weight: Vital Signs (12 hours) Temp Pulse Resp BP BP Pulse Ox 07/07/17 13:54 63 161/68 H 07/07/17 11:56 97.5 F L 63 18 134/74 95 07/07/17 10:25 65 86/64 L 07/07/17 08:00 97.7 F 65 16 96 07/07/17 07:54 97.7 F 65 16 86/64 L 96 Weight Admit Weight 205 lb 4.8 oz Weight 197 lb 6.4 oz I&O: 07/06/17 07/07/17 07/08/17 06:59 06:59 06:59 Intake Total 1750 1150 Output Total 900 4000 Balance 850 -2850 Result Diagrams: 07/01/17 09:38 07/01/17 09:38 Additional Labs: Accuchecks 07/07/17 07/07/17 07/07/17 15:57 10:45 06:03 POC Glucose 132 H 236 H 106 07/06/17 20:32 POC Glucose 196 H Phys Exam - Physical Examination Constitutional: NAD HEENT: moist MMs Neck: supple Respiratory: clear to auscultation bilateral Cardiovascular: RRR Gastrointestinal: soft Psychiatric: normal affect Dx/Plan (1) QUANG (acute kidney injury) Code(s): N17.9 - ACUTE KIDNEY FAILURE, UNSPECIFIED Status: Acute (2) Below knee amputation status Status: Chronic Qualifiers: Laterality: right Qualified Code(s): Z89.511 - Acquired absence of right leg below knee (3) Nephrotic syndrome Code(s): N04.9 - NEPHROTIC SYNDROME WITH UNSPECIFIED MORPHOLOGIC CHANGES Status: Chronic (4) Diabetic peripheral vascular disease Code(s): E11.51 - TYPE 2 DIABETES W DIABETIC PERIPHERAL ANGIOPATH W/O GANGRENE Status: Chronic (5) Hypertension, uncontrolled Code(s): I10 - ESSENTIAL (PRIMARY) HYPERTENSION Status: Chronic (6) Hypokalemia Code(s): E87.6 - HYPOKALEMIA Status: Resolved - Plan PT/OT, out of bed/ambulate * . Pt has dialysis chair. Now he reports being weaker than before. Needs reassessment by therapy services to determine disposition. Review of Systems - Review of Systems Respiratory: negative: Cough, Dry, Shortness of Breath, Hemoptysis, SOB with Excertion, Pleuritic Pain, Sputum, Wheezing Cardiovascular: negative: chest pain, palpitations, orthopnea, paroxysmal nocturnal dyspnea, edema, light headedness - Medications/Allergies Allergies/Adverse Reactions: Allergies Allergy/AdvReac Type Severity Reaction Status Date / Time No Known Allergies Allergy Verified 06/24/17 15:20 Medications: Current Medications Acetaminophen (Tylenol) 650 mg PO Q4H PRN PRN Reason: Headache/Fever or Pain Acetaminophen (Tylenol) 650 mg MA Q4H PRN PRN Reason: Headache/Fever or Pain Acetaminophen (Tylenol) 1,000 mg PO Q6H PRN PRN Reason: Moderate to Severe Pain (6-10) Last Admin: 07/07/17 13:54 Dose: 1,000 mg Artificial Tears (Tears Naturale) 2 drop EA EYE Q6H PRN PRN Reason: DRY EYES Aspirin (Ecotrin) 81 mg PO DAILY [facility] Last Admin: 07/07/17 10:24 Dose: 81 mg Atorvastatin Calcium (Lipitor) 10 mg PO DAILY [facility] Last Admin: 07/07/17 10:24 Dose: 10 mg Bisacodyl (Dulcolax) 10 mg PO DAILYPRN PRN PRN Reason: Constipation Dextrose/Water (Dextrose 50%) 25 gm SLOW IVP PRN PRN PRN Reason: Hypoglycemia Epoetin Jesus (Procrit) 5,000 units IVP MoWeFr [facility] Last Admin: 07/06/17 17:30 Dose: 5,000 units Glucagon (Glucagon) 1 mg IM PRN PRN PRN Reason: Hypoglycemia Heparin Sodium (Porcine) (Heparin) 5,000 units SC BID [facility] Last Admin: 07/07/17 10:24 Dose: 5,000 units Hydralazine HCl (Apresoline) 10 mg SLOW IVP Q6H PRN PRN Reason: SBP > 180 Hydralazine HCl (Apresoline) 25 mg PO Q6H PRN PRN Reason: SBP>180 Last Admin: 06/26/17 11:25 Dose: 25 mg Hydralazine HCl (Apresoline) 25 mg PO QID [facility] Last Admin: 07/07/17 13:54 Dose: 25 mg Dextrose/Water (D5w) 1,000 mls @ 0 mls/hr IV .Q0M PRN; As Directed PRN Reason: Hypoglycemia Insulin Human Lispro (Humalog) 0 units SC .MILD SLIDING SCALE PRN PRN Reason: Mild Correctional Scale Last Admin: 07/07/17 11:44 Dose: 3 unit Metoprolol Tartrate (Lopressor) 25 mg PO BID [facility] Last Admin: 07/07/17 10:25 Dose: Not Given Nicotine (Nicoderm Patch) 21 mg TD Q24HR [facility] Last Admin: 07/07/17 13:57 Dose: Not Given Nifedipine (Procardia Xl) 60 mg PO DAILY [facility] Last Admin: 07/07/17 10:25 Dose: Not Given Sodium Chloride (Flush - Normal Saline) 10 ml IVF Q12HR [facility] Last Admin: 07/07/17 13:57 Dose: Not Given Sodium Chloride (Flush - Normal Saline) 10 ml IVF PRN PRN PRN Reason: Saline Flush Tramadol HCl (Ultram) 50 mg PO Q6H PRN PRN Reason: Mild Pain (1-3) Tramadol HCl (Ultram) 100 mg PO Q6H PRN PRN Reason: Moderate Pain (4-6) Last Admin: 06/30/17 10:20 Dose: 100 mg
[2017-07-08] MEDS: Aspirin 81 mg Enteric Coated Tablet PO SCH (07:38)
[2017-07-08] MEDS: Atorvastatin Calcium 10 MG TAB PO SCH (07:38)
[2017-07-08] MEDS: NIFEdipine XL 60 MG TAB PO SCH (07:38)
[2017-07-08] MEDS: Heparin 5,000 UNITS/ML VIAL SC SCH ×2 (07:39→21:17)
[2017-07-08] MEDS: hydrALAZINE 25 MG TAB PO SCH ×4 (07:39→21:17)
[2017-07-08] MEDS: Metoprolol Tartrate 25 MG TAB PO SCH ×2 (07:39→21:17)
--- NOTE | 2017-07-08 10:58 | PDOC.PN ---
- Subjective Encounter Start Date: 07/08/17 Encounter Start Time: 09:20 Pt seen for followup re: QUANG. Reports generalized weakness. - Objective Vital Signs & Weight: Vital Signs (12 hours) Temp Pulse Resp BP BP BP Pulse Ox 07/08/17 08:00 98.5 F 61 18 94 L 07/08/17 07:47 98.5 F 61 18 153/74 H 94 L 07/08/17 07:39 61 153/74 H 07/08/17 07:38 61 153/74 H 07/08/17 04:00 97.9 F 54 L 20 147/84 H 96 07/08/17 00:00 98.5 F 58 L 18 132/68 95 Weight Admit Weight 205 lb 4.8 oz Weight 197 lb 6.4 oz I&O: 07/07/17 07/08/17 07/09/17 06:59 06:59 06:59 Intake Total 1150 1040 Output Total 4000 400 Balance -2850 640 Result Diagrams: 07/01/17 09:38 07/01/17 09:38 Additional Labs: Accuchecks 07/08/17 07/07/17 07/07/17 04:08 19:01 15:57 POC Glucose 100 194 H 132 H 07/07/17 10:45 POC Glucose 236 H Phys Exam - Physical Examination Constitutional: NAD HEENT: moist MMs Neck: supple Respiratory: clear to auscultation bilateral Cardiovascular: RRR Gastrointestinal: soft s/p R BKA Neurological: non-focal, normal sensation, moves all 4 limbs Psychiatric: normal affect Skin: no rash Dx/Plan (1) QUANG (acute kidney injury) Code(s): N17.9 - ACUTE KIDNEY FAILURE, UNSPECIFIED Status: Acute (2) Below knee amputation status Status: Chronic Qualifiers: Laterality: right Qualified Code(s): Z89.511 - Acquired absence of right leg below knee (3) Nephrotic syndrome Code(s): N04.9 - NEPHROTIC SYNDROME WITH UNSPECIFIED MORPHOLOGIC CHANGES Status: Chronic (4) Diabetic peripheral vascular disease Code(s): E11.51 - TYPE 2 DIABETES W DIABETIC PERIPHERAL ANGIOPATH W/O GANGRENE Status: Chronic (5) Hypertension, uncontrolled Code(s): I10 - ESSENTIAL (PRIMARY) HYPERTENSION Status: Chronic (6) Hypokalemia Code(s): E87.6 - HYPOKALEMIA Status: Resolved - Plan PT/OT, out of bed/ambulate * . Dialysis chair available. Pt says he cannot manage at home. Await PT/OT reassessment. Review of Systems - Review of Systems Constitutional: weakness. negative: fever, chills, sweats, malaise Cardiovascular: negative: chest pain, palpitations, orthopnea, paroxysmal nocturnal dyspnea, edema, light headedness, other Gastrointestinal: negative: Nausea, Vomiting, Abdominal Pain, Diarrhea, Constipation, Melena, Hematochezia - Medications/Allergies Allergies/Adverse Reactions: Allergies Allergy/AdvReac Type Severity Reaction Status Date / Time No Known Allergies Allergy Verified 06/24/17 15:20 Medications: Current Medications Acetaminophen (Tylenol) 650 mg PO Q4H PRN PRN Reason: Headache/Fever or Pain Acetaminophen (Tylenol) 650 mg [place] Q4H PRN PRN Reason: Headache/Fever or Pain Acetaminophen (Tylenol) 1,000 mg PO Q6H PRN PRN Reason: Moderate to Severe Pain (6-10) Last Admin: 07/07/17 13:54 Dose: 1,000 mg Artificial Tears (Tears Naturale) 2 drop EA EYE Q6H PRN PRN Reason: DRY EYES Aspirin (Ecotrin) 81 mg PO DAILY [facility] Last Admin: 07/08/17 07:38 Dose: 81 mg Atorvastatin Calcium (Lipitor) 10 mg PO DAILY [facility] Last Admin: 07/08/17 07:38 Dose: 10 mg Bisacodyl (Dulcolax) 10 mg PO DAILYPRN PRN PRN Reason: Constipation Dextrose/Water (Dextrose 50%) 25 gm SLOW IVP PRN PRN PRN Reason: Hypoglycemia Epoetin Jesus (Procrit) 5,000 units IVP MoWeFr [facility] Last Admin: 07/06/17 17:30 Dose: 5,000 units Glucagon (Glucagon) 1 mg IM PRN PRN PRN Reason: Hypoglycemia Heparin Sodium (Porcine) (Heparin) 5,000 units SC BID [facility] Last Admin: 07/08/17 07:39 Dose: 5,000 units Hydralazine HCl (Apresoline) 10 mg SLOW IVP Q6H PRN PRN Reason: SBP > 180 Hydralazine HCl (Apresoline) 25 mg PO Q6H PRN PRN Reason: SBP>180 Last Admin: 06/26/17 11:25 Dose: 25 mg Hydralazine HCl (Apresoline) 25 mg PO QID [facility] Last Admin: 07/08/17 07:39 Dose: 25 mg Dextrose/Water (D5w) 1,000 mls @ 0 mls/hr IV .Q0M PRN; As Directed PRN Reason: Hypoglycemia Insulin Human Lispro (Humalog) 0 units SC .MILD SLIDING SCALE PRN PRN Reason: Mild Correctional Scale Last Admin: 07/07/17 11:44 Dose: 3 unit Metoprolol Tartrate (Lopressor) 25 mg PO BID [facility] Last Admin: 07/08/17 07:39 Dose: 25 mg Nicotine (Nicoderm Patch) 21 mg TD Q24HR [facility] Last Admin: 07/07/17 13:57 Dose: Not Given Nifedipine (Procardia Xl) 60 mg PO DAILY [facility] Last Admin: 07/08/17 07:38 Dose: 60 mg Sodium Chloride (Flush - Normal Saline) 10 ml IVF Q12HR [facility] Last Admin: 07/07/17 20:35 Dose: Not Given Sodium Chloride (Flush - Normal Saline) 10 ml IVF PRN PRN PRN Reason: Saline Flush Tramadol HCl (Ultram) 50 mg PO Q6H PRN PRN Reason: Mild Pain (1-3) Tramadol HCl (Ultram) 100 mg PO Q6H PRN PRN Reason: Moderate Pain (4-6) Last Admin: 06/30/17 10:20 Dose: 100 mg
[2017-07-08] MEDS: HumaLOG 300 UNITS/3 ML VIAL SC PRN (13:06)
[2017-07-08] MEDS: Nicotine 21 MG PATCH TD SCH (13:06)
--- NOTE | 2017-07-08 18:46 | PRG ---
DATE OF SERVICE: 07/08/2017 SUBJECTIVE: The patient is seen and examined. Noted with the following vital signs. OBJECTIVE: VITAL SIGNS: Afebrile with temperature 98.3, pulse 64, blood pressure 146/61, respiratory rate 18, O 2 saturation 95%. HEENT: Unremarkable with moist oral mucosa. Neck is supple. No conjunctival injection or icterus. CARDIOVASCULAR: First and second heart sounds were heard. RESPIRATORY: Clear to auscultation. DIGESTIVE: Revealed a benign abdomen with positive bowel sounds. EXTREMITIES: No peripheral edema. SKIN: No new gross rash. LYMPHATICS: No peripheral lymphadenopathy. IMPRESSION: 1. End-stage renal disease, on hemodialysis. 2. Diabetic nephropathy resulting in #3. 3. Nephrotic syndrome. PLAN: 1. The patient is in a very happy mood today given the change of diet. The patient to continue with hemodialysis on a Sunday, Sunday, and Sunday until at such point when the patient is discharged. The patient already secured outpatient dialysis chair at [facility]. 2. We will get a reevaluation of the patient's blood work tomorrow.
[2017-07-08] MEDS: traMADol HCl 50 MG TAB PO PRN (21:22)
[2017-07-09 05:43] LABS: #Basophils 0.1 thou/uL (0.0-0.2); #Eosinphils 0.3 thou/uL (0.0-0.7); #Lymphocytes 2.2 thou/uL (1.20-3.40); #Monocytes 0.4 thou/uL (0.11-0.59); #Neutrophils 3.3 thou/uL (1.40-6.50); %Basophils 1.5 % (0.0-1.0); %Eosinophils 4.4 % (0.0-10.0); %Lymphocytes 35.4 % (21.0-51.0); %Monocytes 6.4 % (0.0-10.0); %Neutrophils 52.3 % (42.0-75.0); Hemoglobin 8.4 g/dL (14.0-18.0); Mean Corpuscular HGB CONC 33.3 g/dL (32.0-36.0); Mean Corpuscular Hemoglobin 32.8 pg (27.0-31.0); Mean Corpuscular Volume 98.3 fl (80.0-94.0); Mean Platelet Volume 7.5 fL (7.4-10.4); Platelet Count 297 thou/uL (130-400); RBC Distribution Width 12.9 % (11.5-14.5); Red Blood Cell (RBC) Count 2.57 mill/uL (4.70-6.10); White Blood Cell (WBC) Count 6.3 thou/uL (4.8-10.8)
[2017-07-09 06:13] LABS: Anion Gap 8 mmol/L (10-20); BUN (Urea Nitrogen) 25 mg/dL (8.4-25.7); Calc. Creatinine Clearance 33 mL/min (70-130); Calcium 7.4 mg/dL (7.8-10.44); Carbon Dioxide 29 mmol/L (22-29); Chloride 105 mmol/L (98-107); Estimated GFR-MDRD 21; Glucose 116 mg/dL (70-105); Sodium 138 mmol/L (136-145)
[2017-07-09] MEDS: Heparin 5,000 UNITS/ML VIAL SC SCH (10:00)
[2017-07-09] MEDS: Metoprolol Tartrate 25 MG TAB PO SCH (10:00)
[2017-07-09] MEDS: hydrALAZINE 25 MG TAB PO SCH ×2 (10:00→13:30)
[2017-07-09] MEDS ORDERED: Heparin 10,000 UNITS/ 10 ML VIAL ONE (10:00)
[2017-07-09] MEDS: Aspirin 81 mg Enteric Coated Tablet PO SCH (10:00)
[2017-07-09] MEDS: NIFEdipine XL 60 MG TAB PO SCH (10:00)
[2017-07-09] MEDS: Atorvastatin Calcium 10 MG TAB PO SCH (10:00)
[2017-07-09] MEDS: Epoetin (ESRD) 20,000 UNITS/ML IVP SCH (11:05)
[2017-07-09 12:39] VITALS: BP 154/72; TEMP 97.7
[2017-07-09] MEDS: Nicotine 21 MG PATCH TD SCH (13:30)
--- NOTE | 2017-07-09 23:00 | DIS ---
DATE OF ADMISSION: 06/24/2017 DATE OF DISCHARGE: 07/09/2017 PRIMARY CARE PROVIDER: Vasyl Rivera. DISCHARGE DIAGNOSES: 1. Acute on chronic renal failure. 2. Physical deconditioning. CONDITION OF PATIENT AT THE TIME OF DISCHARGE: Stable. I assessed Mr. Gonzalo Mills on the day of discharge. He denies any chest pain or shortness of breath. Vital signs are stable. S1 and S2 a re heard, regular. Lungs are clear to auscultation bilaterally. DISCHARGE MEDICATIONS: Aspirin 81 mg daily; Lipitor 10 mg daily; epoetin 5000 units every Sunday, , and Sunday; Levemir insulin 8 units at bedtime; Lopressor 25 mg 2 times a day; nicotine 21 m g patch daily; Procardia XL 60 mg daily and insulin sliding scale. HOSPITAL COURSE: Mr. Gonzalo Mills is a pleasant 57-year-old gentleman who was admitted to [facility] on 06/24/2017 for acute on chronic renal insufficiency. Renal ultrasoun d on 06/24 showed both kidneys with increased cortical echogenicity consistent with medical renal dis ease, but no hydronephrosis. He also had moderate ascites in the lower abdomen and had thickened uri nary bladder wall. Nephrology and General Surgery services were consulted. On 06/29, he had left fe moral vein triple lumen catheter placed by Surgical service. On 06/29, he also had right IJ cuffed t unneled hemodialysis catheter and right arm primary fistula. He was started on hemodialysis during this hospitalization. He now has hemodialysis chair with [facility]. He also had edema of left upper extremity, genital region and right side of the face. Edema of the g enital region improved. Edema of the left upper extremity was felt to be chronic. Edema of the righ t side of the face improved. No etiology could be found. He became physically deconditioned during this hospitalization. After evaluation by therapy services , he is being discharged to [facility] on 07/09/2017. Many thanks for allowing me to participate in your patient's care. Please feel free to contact me if any questions or concerns. DISCHARGE DESTINATION: Home. TOTAL AMOUNT OF TIME SPENT COORDINATING THIS DISCHARGE: 38 minutes.
== END 2017-07-09 14:32 | DRG 674 ==
LOC: ERS 07:31 → ERHOLD 10:10 → 2NO 15:00 → T4-B 06-26 12:57
PROVIDERS: ADMIT Family Medicine; ATTEND Family Medicine
PROC: 031B0ZF Bypass Right Radial Artery to Lower Arm Vein, Open Approach (ICD-10-PCS; principal; 2017-06-29)
PROC: 5A1D70Z Performance of Urinary Filtration, Intermittent, Less than 6 Hours Per Day (ICD-10-PCS; 2017-06-29)
PROC: 02HV33Z Insertion of Infusion Device into Superior Vena Cava, Percutaneous Approach (ICD-10-PCS; 2017-06-29)
PROC: 02HV33Z Insertion of Infusion Device into Superior Vena Cava, Percutaneous Approach (ICD-10-PCS; 2017-06-29)
DX: N17.9 Acute kidney failure, unspecified (principal); I13.2 Hypertensive heart and chronic kidney disease with heart failure and with stage 5 chronic kidney disease, or end stage renal disease; E11.51 Type 2 diabetes mellitus with diabetic peripheral angiopathy without gangrene; E11.21 Type 2 diabetes mellitus with diabetic nephropathy; R18.8 Other ascites; E87.2 Acidosis; I50.32 Chronic diastolic (congestive) heart failure; E87.6 Hypokalemia; F17.210 Nicotine dependence, cigarettes, uncomplicated; E78.5 Hyperlipidemia, unspecified; Z89.511 Acquired absence of right leg below knee; Z79.4 Long term (current) use of insulin; E11.22 Type 2 diabetes mellitus with diabetic chronic kidney disease; N18.6 End stage renal disease; Z99.2 Dependence on renal dialysis; D63.1 Anemia in chronic kidney disease
CPT/HCPCS: 36415; 36416; 71045; 76770; 80048; 80053; 80061; 80069; 82436; 82550; 82570; 82575; 83735; 83970; 84133; 84156; 84300; 85025; 86580; 86704; 86706; 86803; 87340; 90935; 93005; 93970; 94760; 96361; 96365; 96366; 96375; A4216; C1752; C1769; G0257; G0365; G8978-GP-CI; G8979-GP-CK; G8987-GO-CM; G8988-GO-CM; G8989-GO-CM; J0360; J1642; J1644; J1940; J2001; J2250; J2704; J2720; J3010; J3475; J3480; J7050; Q4081; S0020

== ENCOUNTER 2017-07-20 18:33 | Inpatient (IN) | payer MEDICARE ==
[~2017-07-20 18:33] MED LIST: ISOVUE-370 76%-LOCM 1 ML ONE
[2017-07-20 19:03] LABS: #Monocytes 0.2 thou/uL (0.11-0.59); #Neutrophils 3.6 thou/uL (1.40-6.50); %Eosinophils 0.1 % (0.0-10.0); %Monocytes 4.1 % (0.0-10.0); %Neutrophils 74.8 % (42.0-75.0); Hemoglobin 10.4 g/dL (14.0-18.0); Mean Corpuscular HGB CONC 33.8 g/dL (32.0-36.0); Mean Corpuscular Hemoglobin 32.8 pg (27.0-31.0); Mean Corpuscular Volume 97.2 fl (80.0-94.0); Mean Platelet Volume 8.2 fL (7.4-10.4); Platelet Count 209 thou/uL (130-400); RBC Distribution Width 12.5 % (11.5-14.5); Red Blood Cell (RBC) Count 3.17 mill/uL (4.70-6.10); White Blood Cell (WBC) Count 4.9 thou/uL (4.8-10.8)
[2017-07-20 19:09] LABS: PTT 38.1 SEC (22.9-36.1)
[2017-07-20 19:23] LABS: ALT (SGPT) 19 U/L (8-55); AST (SGOT) 34 U/L (5-34); Albumin 2.2 g/dL (3.5-5.0); Alkaline Phosphatase 135 U/L (40-150); Anion Gap 12 mmol/L (10-20); BUN (Urea Nitrogen) 31 mg/dL (8.4-25.7); Bilirubin, Total 0.3 mg/dL (0.2-1.2); CK (CPK) 314 U/L (30-200); Calc. Creatinine Clearance 0 mL/min (70-130); Calcium 7.5 mg/dL (7.8-10.44); Carbon Dioxide 25 mmol/L (22-29); Chloride 102 mmol/L (98-107); Estimated GFR-MDRD 16; Globulin 2.4 g/dL (2.4-3.5); Glucose 120 mg/dL (70-105); Lipase 24 U/L (8-78); Potassium 3.9 mmol/L (3.5-5.1); Protein, Total 4.6 g/dL (6.0-8.3); Sodium 135 mmol/L (136-145)
--- NOTE | 2017-07-20 19:32 | RAD ---
RADIOGRAPH OF CHEST FRONTAL VIEW 07/20/17 COMPARISON: 06/29/17 INDICATION: Syncope. FINDINGS: Patchy bilateral perihilar opacity is present. There is a tunneled right sided vascular catheter agai n seen. Cardiac silhouette is stable. No obvious pneumothorax or significant effusion. IMPRESSION: Bilateral patchy perihilar opacity may be related to edema. Recommend clinical correlation to exclude evidence of pneumonia. Followup to resolution is recommended. POS: [facility]
[2017-07-20 19:33] LABS: CKMB 1.7 ng/mL (0-6.6); Troponin I 0.045 ng/mL (< 0.028)
[2017-07-20] MEDS ORDERED: Ondansetron HCl/PF 4 MG/2 ML Vial ONE (19:42)
[2017-07-20 20:40] LABS: Actual Bicarbonate (HCO3a) 25.3 mEq/L (22-26); Base Excess (BEa) 2.2 mEq/L (0 (+/-) 2.5); CO2 Tension 33.7 mmHg (35.0-45.0); O2 Tension (PaO2) 61.7 mmHg (80.0-100.0); pH, Arterial 7.49 (7.35-7.45)
[2017-07-20 20:41] LABS: Hematocrit-ABG 28.6 % (42.0-52.0); Hemoglobin (Hb) 9.6 g/dL (14.0-18.0)
[2017-07-20 20:42] LABS: ALV-art Gradient 95.815 (0-20); Analyzer IN Cardio ER; Puncture Site LRA
--- NOTE | 2017-07-20 21:22 | CT ---
CONTRAST ENHANCED ABDOMEN AND PELVIC CT 07/20/17 INDICATION: Abdominal pain with altered mental status. FINDINGS: Marked limitation due to beam hardening and streak artifact from overlying upper extremities. Bilateral pleural effusions are partially imaged. There is adjacent consolidation greater at the left lung base. No obvious acute process of the solid abdominal organs identified. The bowel is not relia allen assessed without enteric contrast. There is marked distention of the unopacified urinary bladder. Correlate clinically. No free air. There is diffuse vascular disease. Imaged osseous structures reveal degenerative change. IMPRESSION: 1. Marked distention of the urinary bladder. Correlate clinically. 2. Incidental note of bilateral pleural effusions and bibasilar consolidation. 3. Diffuse vascular disease. 4. Incomplete assessment of the bowel without enteric contrast. POS: [facility]
[2017-07-20] MEDS ORDERED: Ondansetron HCl/PF 4 MG/2 ML Vial IVP PRN (21:58)
[2017-07-20] MEDS ORDERED: Ondansetron ODT 4 MG TAB SL PRN (21:58)
[2017-07-20] MEDS ORDERED: Sodium Chloride 0.9% 1,000 ML IV SCH (21:58)
[2017-07-20 22:12] VITALS: BMI 25.3
[2017-07-21] MEDS ORDERED: Acetaminophen 325 MG TAB PO PRN (01:17)
[2017-07-21] MEDS ORDERED: Dextrose 5% in Water 1,000 ML IV PRN (01:17)
[2017-07-21] MEDS ORDERED: HumaLOG 300 UNITS/3 ML VIAL SC PRN (01:17)
[2017-07-21] MEDS ORDERED: Dextrose 50% Abboject 50 ML SYRINGE SLOW IVP PRN (01:17)
[2017-07-21 05:09] LABS: Anion Gap 12 mmol/L (10-20); BUN (Urea Nitrogen) 36 mg/dL (8.4-25.7); Calc. Creatinine Clearance 20 mL/min (70-130); Calcium 7.3 mg/dL (7.8-10.44); Carbon Dioxide 23 mmol/L (22-29); Chloride 103 mmol/L (98-107); Estimated GFR-MDRD 15; Glucose 118 mg/dL (70-105); Magnesium 1.5 mg/dL (1.6-2.6); Potassium 4.1 mmol/L (3.5-5.1); Sodium 134 mmol/L (136-145)
[2017-07-21 05:53] LABS: #Lymphocytes 1.3 thou/uL (1.20-3.40); #Monocytes 0.3 thou/uL (0.11-0.59); #Neutrophils 5.7 thou/uL (1.40-6.50); %Basophils 0.1 % (0.0-1.0); %Eosinophils 0.3 % (0.0-10.0); %Lymphocytes 17.2 % (21.0-51.0); %Monocytes 4.6 % (0.0-10.0); %Neutrophils 77.9 % (42.0-75.0); Hemoglobin 9.5 g/dL (14.0-18.0); Mean Corpuscular HGB CONC 34.5 g/dL (32.0-36.0); Mean Corpuscular Hemoglobin 33.1 pg (27.0-31.0); Mean Platelet Volume 9.6 fL (7.4-10.4); PLT Morphology Comment Appears Decreased; Platelet Count 128 thou/uL (130-400); RBC Distribution Width 12.6 % (11.5-14.5); RBC Morphology Normal; Red Blood Cell (RBC) Count 2.88 mill/uL (4.70-6.10); White Blood Cell (WBC) Count 7.3 thou/uL (4.8-10.8)
--- NOTE | 2017-07-21 07:13 | HP ---
DATE OF ADMISSION: 07/20/2017 TIME OF SERVICE: 2345 hours. CHIEF COMPLAINT: Altered mental status. PRIMARY CARE PHYSICIAN: Claudette Molina. CODE STATUS: FULL per the . HISTORY OF PRESENT ILLNESS: Mr. Gonzalo Mills is a 57-year-old male well known to us from a recent admission from 06/24/2017 to 07/09/2017, when he was started on hemodialysis. He does have a history of chronic kidney disease, now on end-stage renal disease with hemodialysis. He dialyzes Sunday, , Sunday, I believe at [facility] and he is followed by Dr. Castillo. [facility] the [facility], the patient was found to be bradycardic and hypotensive today. He was altered a nd difficult to arouse. He was complaining of abdominal pain. On arrival to the ER, but otherwise h is said his mental status is pretty much back to normal. He was doing fine at rehabilitation at the [facility]. He has been getting stronger and had been walk ing. In the Emergency Department workup was largely unremarkable. We were subsequently called for admit. PAST MEDICAL HISTORY: 1. Hypertension, essential. 2. Diabetes mellitus type 2, insulin-dependent. 3. Chronic diastolic congestive heart failure. 4. End-stage renal disease on hemodialysis Sunday, , and Sunday. Follow up with Dr. Martín pearce. Last hemodialysis was on 07/18/2017. PAST SURGICAL HISTORY: 1. Include right hand surgery. 2. Right BKA. 3. Right chest PermCath placement and fistula creation. HOME MEDICATIONS: 1. Hydralazine 25 mg p.o. t.i.d. 2. Nifedipine 60 mg p.o. daily. 3. Metoprolol tartrate 25 mg p.o. b.i.d. 4. Aspirin 81 mg daily. 5. Atorvastatin 10 mg p.o. at bedtime. 6. Insulin sliding scale with NovoLog. 7. Levemir 8 units subcu q.p.m. ALLERGIES: NKDA. FAMILY HISTORY: Negative for clotting or bleeding disorder, no immune dysfunction. SOCIAL HISTORY: Significant for one pack per day prior to [facility] placement. He is currently i [facility], getting rehabilitated. Discussed with . CODE STATUS: He is a FULL CODE. REVIEW OF SYSTEMS: A 10 point review of systems was attempted. The patient was arousable, would ans wer questions somewhat cognitively. Unsure of the reliability, but he denied any other problems. PHYSICAL EXAMINATION: VITAL SIGNS: Temperature 97.9, pulse 53, blood pressure 112/51, respiratory rate 16, satting 96% on 2 liters nasal cannula. GENERAL: He is sleeping, but arousable. He appears to be in no acute distress. HEENT: Normocephalic, atraumatic. His pupils are equal, round and reactive to light bilaterally, mu cous membranes are moist. He has no visible lesions and no thrush. NECK: Supple, without lymphadenopathy, JVD, or thyromegaly. Normal carotid upstrokes without bruits . He has got an IJ incision where his PermCath was placed as it healed well. CHEST: Lungs are clear to auscultation bilaterally. He has no wheezes, no rales, no rhonchi. No pr olonged expiratory phase. He has some faint bibasilar crackles. Do not clear with deep inspiration. He has had a right chest PermCath with a slight amount of erythema at the insertion site and slight tenderness to palpation. There is no drainage. CARDIOVASCULAR: He is bradycardic, but regular. He is in sinus rhythm. He has got no audible murmu rs. ABDOMEN: Soft, it is nontender, nondistended. No masses, no organomegaly. EXTREMITIES: No cyanosis or clubbing in the right lower extremity. There is a left BKA stump has we ll healed. SKIN: Warm, moist, and well perfused. There are no other rashes or lesions. Dressing to his PermCa th is clean, dry, and intact. NEUROLOGIC: Moves all 4 of his extremities equally. He has got good strength. Does not have any fo michael deficits. MUSCULOSKELETAL: Large joints appear uninflamed. There is no palpable effusions. LABORATORY DATA: Sodium 135, potassium 3.9, chloride 102, bicarb 25, BUN 31, creatinine 3.88, and gl ucose of 120. Liver function are completely within normal limits except for a total protein of 4.6 a nd albumin of 2.2. CBC showed white count of 4.9 with normal differential, hemoglobin is 10.4, hemat ocrit of 30.8, and platelet count is 209,000. Lipase was normal at 24. CK-MB was 1.7 with a troponi n I of 0.045, CK was 314 and lactic acid normal at 1.1. BNP was slightly elevated at 134.6. Ammonia was normal at 16. Blood gas showed pH of 7.49, pCO2 of 34, pO2 of 62, satting 92%. His bicarb was 25. INR is 1.0. RADIOGRAPHIC STUDIES: He had a chest x-ray showed bilateral patchy perihilar opacities that may be r elated to edema, and CT scan of the abdomen and pelvis showed a markedly distended bladder. Incident al note of bilateral pleural effusions and bibasilar consolidation, diffuse vascular disease and inco mplete assessment of the bile duct without contrast. ASSESSMENT AND PLAN: 1. Metabolic encephalopathy seems to be improved. Certainly may be related to his bradycardia and h ypotension. We will continue to watch him overnight. He is scheduled for dialysis in the morning. We will notify Dr. Castillo of his admission, if he has not already been made aware. 2. Hypertension, essential. The patient is on hydralazine, nifedipine, and metoprolol tartrate. We will hold these at present, given that he was recently hypotensive and is just now at the low end of normal. 3. Diabetes mellitus type 2 on Levemir and sliding scale insulin. We will continue. We will place the patient on diabetic diet, heart healthy, renal diet. 4. Chronic diastolic congestive heart failure. BNP is barely elevated. He did have some perihilar infiltrates, it did appear to be like edema. We will follow up on his response to dialysis. 5. End-stage renal disease on hemodialysis. Consulted Dr. Maribell Castillo and we will need dial ysis tomorrow. 6. Physical therapy and occupational therapy has been consulted. The patient will not be placed on deep venous thrombosis prophylaxis as dialysis. We will give him Pepcid b.i.d. for gastrointes tinal prophylaxis.
[2017-07-21] MEDS ORDERED: Ondansetron ODT 4 MG TAB PO PRN (07:19)
[2017-07-21] MEDS ORDERED: Senokot 8.6 MG TAB PO PRN (07:19)
[2017-07-21] MEDS ORDERED: Mag-Al 1200 mg/1200 mg/30 ML UDCUP PO PRN (07:19)
[2017-07-21] MEDS ORDERED: Loperamide HCl 2 MG CAP PO PRN (07:19)
[2017-07-21] MEDS ORDERED: Eucerin (Mineral Oil/Petrolatum,White) 30 gm Jar TOP PRN (07:19)
[2017-07-21] MEDS ORDERED: hydrALAZINE 20 MG/ML VIAL SLOW IVP PRN (07:19)
[2017-07-21] MEDS ORDERED: Nitroglycerin 0.4 MG TAB (25 Tab Bottle) SL PRN (07:19)
[2017-07-21] MEDS ORDERED: Artificial Tears 18 DROP/0.9 ML EA EYE PRN (07:19)
[2017-07-21] MEDS ORDERED: Loratadine 10 MG TAB PO PRN (07:19)
[2017-07-21] MEDS ORDERED: Milk Of Magnesia 30 ML UDCUP PO PRN (07:19)
[2017-07-21] MEDS ORDERED: Ondansetron HCl/PF 4 MG/2 ML Vial IVP PRN (07:19)
[2017-07-21] MEDS ORDERED: Chloraseptic Spray 180 ml Bottle PO PRN (07:19)
[2017-07-21] MEDS ORDERED: Diabetic Tussin 200 MG/10 ML UDCUP PO PRN (07:19)
[2017-07-21] MEDS ORDERED: Sodium Chloride 0.65% Nasal 44 ML BOT EA NARE PRN (07:19)
[2017-07-21] MEDS: Ferrous Sulfate 325 MG TAB PO SCH (08:26)
[2017-07-21] MEDS: Famotidine 20 MG TAB PO SCH (08:26)
[2017-07-21] MEDS: Folic Acid/Vit B Comp W-C PO SCH (08:26)
[2017-07-21] MEDS: Atorvastatin Calcium 10 MG TAB PO SCH (08:26)
[2017-07-21] MEDS: Aspirin 81 mg Enteric Coated Tablet PO SCH (08:26)
--- NOTE | 2017-07-21 10:42 | PDOC.PN ---
- Subjective Encounter Start Date: 07/21/17 Encounter Start Time: 08:30 -: old records requested/rev pt is lethargic, is present bedside, pt reports that he tired with dialysis , he feels down, depressed, no fever, feels weak - Objective Resuscitation Status: Resuscitation Status FULL:Full Resuscitation MAR Reviewed: Yes Vital Signs & Weight: Vital Signs (12 hours) Temp Pulse Resp BP Pulse Ox 07/21/17 07:21 98.1 F 53 L 18 100 07/21/17 07:05 98.1 F 53 L 18 110/52 L 100 07/21/17 02:45 98.4 F 60 16 116/51 L 95 Weight Weight 162 lb I&O: 07/20/17 07/21/17 07/22/17 06:59 06:59 06:59 Intake Total 360 Output Total 0 Balance 360 Result Diagrams: 07/21/17 04:35 07/21/17 04:35 Additional Labs: Accuchecks 07/21/17 05:23 POC Glucose 126 H Radiology Reviewed by me: Yes Phys Exam - Physical Examination Constitutional: NAD HEENT: PERRLA, moist MMs, sclera anicteric Neck: no JVD, supple reduced air entry at base Cardiovascular: RRR, no significant murmur, no rub Gastrointestinal: soft, non-tender, no distention, positive bowel sounds rigth BKA Neurological: non-focal, normal sensation Lymphatic: no nodes Psychiatric: normal affect Skin: no rash, normal turgor Dx/Plan (1) Acute metabolic encephalopathy Code(s): G93.41 - METABOLIC ENCEPHALOPATHY Status: Acute (2) Bilateral atelectasis Code(s): J98.11 - ATELECTASIS Status: Acute (3) Bilateral pleural effusion Code(s): J90 - PLEURAL EFFUSION, NOT ELSEWHERE CLASSIFIED Status: Acute (4) Bradycardia, drug induced Code(s): R00.1 - BRADYCARDIA, UNSPECIFIED; T50.905A - ADVERSE EFFECT OF UNSP DRUG/MEDS/BIOL SUBST, INIT Status: Acute (5) Chronic diastolic heart failure Code(s): I50.32 - CHRONIC DIASTOLIC (CONGESTIVE) HEART FAILURE Status: Acute (6) Elevated troponin Code(s): R74.8 - ABNORMAL LEVELS OF OTHER SERUM ENZYMES Status: Acute (7) Hypertension Code(s): I10 - ESSENTIAL (PRIMARY) HYPERTENSION Status: Acute (8) Hypomagnesemia Code(s): E83.42 - HYPOMAGNESEMIA Status: Acute (9) Anemia of renal disease Code(s): D63.1 - ANEMIA IN CHRONIC KIDNEY DISEASE Status: Chronic (10) Diabetic peripheral vascular disease Code(s): E11.51 - TYPE 2 DIABETES W DIABETIC PERIPHERAL ANGIOPATH W/O GANGRENE Status: Chronic (11) Dyslipidemia Code(s): E78.5 - HYPERLIPIDEMIA, UNSPECIFIED Status: Chronic (12) ESRD (end stage renal disease) on dialysis Code(s): N18.6 - END STAGE RENAL DISEASE; Z99.2 - DEPENDENCE ON RENAL DIALYSIS Status: Chronic (13) H/O: CVA (cerebrovascular accident) Code(s): Z86.73 - PRSNL HX OF TIA (TIA), AND CEREB INFRC W/O RESID DEFICITS Status: Chronic (14) Hx of right BKA Code(s): Z89.511 - ACQUIRED ABSENCE OF RIGHT LEG BELOW KNEE Status: Chronic (15) Nephrotic syndrome Code(s): N04.9 - NEPHROTIC SYNDROME WITH UNSPECIFIED MORPHOLOGIC CHANGES Status: Chronic (16) Secondary hyperparathyroidism of renal origin Code(s): N25.81 - SECONDARY HYPERPARATHYROIDISM OF RENAL ORIGIN Status: Chronic (17) Hypotension Status: Resolved - Plan cont current plan of care, plan discussed w/ family * will add levaquin for suspected pneumonia * continue HD as per nephrology * will add zoloft 25 mg po daily * start selected home meds * discussed with * medication reviewed as below * symptomatic treatment. * add ferrous sulfate and nephrovite * repeat labs tomorrow Review of Systems - Review of Systems Constitutional: weakness. negative: fever, chills, sweats, malaise, other ENT: negative: Ear Pain, Ear Discharge, Nose Pain, Nose Discharge, Nose Congestion, Mouth Pain, Mouth Swelling, Throat Pain, Throat Swelling, Other Respiratory: negative: Cough, Dry, Shortness of Breath, Hemoptysis, SOB with Excertion, Pleuritic Pain, Sputum, Wheezing Cardiovascular: negative: chest pain, palpitations, orthopnea, paroxysmal nocturnal dyspnea, edema, light headedness, other Gastrointestinal: negative: Nausea, Vomiting, Abdominal Pain, Diarrhea, Constipation, Melena, Hematochezia, Other Genitourinary: negative: Dysuria, Frequency, Incontinence, Hematuria, Retention , Other Musculoskeletal: negative: Neck Pain, Shoulder Pain, Arm Pain, Back Pain, Hand Pain, Leg Pain, Foot Pain, Other - Medications/Allergies Allergies/Adverse Reactions: Allergies Allergy/AdvReac Type Severity Reaction Status Date / Time No Known Allergies Allergy Verified 06/24/17 15:20 Medications: Current Medications Acetaminophen (Tylenol) 650 mg PO Q4H PRN PRN Reason: Headache/Fever or Pain Hydrocodone Bitart/Acetaminophen ([place] 5/325) 1 tab PO Q4H PRN PRN Reason: Moderate Pain (4-6) Al Hydroxide/Mg Hydroxide (Maalox) 15 ml PO Q4H PRN PRN Reason: Heartburn or Indigestion Artificial Tears (Tears Naturale) 0 drop EA EYE PRN PRN PRN Reason: Dry Eyes Aspirin (Ecotrin) 81 mg PO DAILY [facility] Last Admin: 07/21/17 08:26 Dose: 81 mg Atorvastatin Calcium (Lipitor) 10 mg PO DAILY [facility] Last Admin: 07/21/17 08:26 Dose: 10 mg Dextrose/Water (Dextrose 50%) 25 gm SLOW IVP PRN PRN PRN Reason: Hypoglycemia Famotidine (Pepcid) 20 mg PO DAILY [facility] Last Admin: 07/21/17 08:26 Dose: 20 mg Ferrous Sulfate (Feosol) 325 mg PO [facility] Last Admin: 07/21/17 08:26 Dose: 325 mg Glucagon (Glucagon) 1 mg IM PRN PRN PRN Reason: Hypoglycemia Guaifenesin (Robitussin Sf) 200 mg PO Q4H PRN PRN Reason: Cough Hydralazine HCl (Apresoline) 10 mg SLOW IVP Q4H PRN PRN Reason: Systolic BP > 180 Dextrose/Water (D5w) 1,000 mls @ 0 mls/hr IV .Q0M PRN; As Directed PRN Reason: Hypoglycemia Insulin Detemir 8 units/ (Miscellaneous Medication) 0.08 mls @ 0 mls/hr [facility] Insulin Human Lispro (Humalog) 0 units SC .MILD SLIDING SCALE PRN PRN Reason: Mild Correctional Scale Loperamide HCl (Imodium) 2 mg PO PRN PRN PRN Reason: Diarrhea/Loose Stools Loratadine (Claritin) 10 mg PO DAILYPRN PRN PRN Reason: Sinus Symptoms Magnesium Hydroxide (Milk Of Magnesium) 30 ml PO DAILYPRN PRN PRN Reason: Constipation Mineral Oil/White Petrolatum (Eucerin Cream) 0 gm TOP BIDPRN PRN PRN Reason: Dry Skin Nitroglycerin (Nitrostat) 0.4 mg SL Q5MIN PRN PRN Reason: Chest Pain Ondansetron HCl (Zofran Odt) 4 mg PO Q6H PRN PRN Reason: Nausea/Vomiting Ondansetron HCl (Zofran) 4 mg IVP Q6H PRN PRN Reason: Nausea/Vomiting Phenol (Chloraseptic [place] 180 Ml Bot) 0 ml PO PRN PRN PRN Reason: Sore Throat Senna (Senokot) 2 tab PO HSPRN PRN PRN Reason: Constipation Sodium Chloride ([place] Nasal [place] 0.65%) 0 ml EA NARE QIDPRN PRN PRN Reason: Nasal Congestion Vitamin B Complex/Vit C/Folic Acid (Nephro-Shalini Tablet) 1 tab PO DAILY [facility] Last Admin: 07/21/17 08:26 Dose: 1 tab
[2017-07-21] MEDS ORDERED: Heparin 1,000 UNITS/ML VIAL ONE (11:11)
[2017-07-21] MEDS ORDERED: Insulin Detemir 100 UNITS/ML 8 UNITS in Pre-Filled Syringe 1 EACH SC SCH (21:00)
[2017-07-22 05:27] LABS: #Lymphocytes 1.2 thou/uL (1.20-3.40); #Monocytes 0.5 thou/uL (0.11-0.59); #Neutrophils 6.3 thou/uL (1.40-6.50); %Basophils 0.3 % (0.0-1.0); %Eosinophils 0.1 % (0.0-10.0); %Lymphocytes 15.1 % (21.0-51.0); %Monocytes 5.8 % (0.0-10.0); %Neutrophils 78.7 % (42.0-75.0); Hemoglobin 9.8 g/dL (14.0-18.0); Mean Corpuscular HGB CONC 33.4 g/dL (32.0-36.0); Mean Corpuscular Hemoglobin 32.8 pg (27.0-31.0); Mean Corpuscular Volume 98.1 fl (80.0-94.0); Mean Platelet Volume 8.8 fL (7.4-10.4); Platelet Count 197 thou/uL (130-400); RBC Distribution Width 12.6 % (11.5-14.5)
[2017-07-22 06:04] LABS: Albumin 1.9 g/dL (3.5-5.0); Anion Gap 13 mmol/L (10-20); BUN (Urea Nitrogen) 24 mg/dL (8.4-25.7); BUN/Creatinine Ratio 7.43; Calc. Creatinine Clearance 26 mL/min (70-130); Calcium 7.6 mg/dL (7.8-10.44); Carbon Dioxide 23 mmol/L (22-29); Chloride 101 mmol/L (98-107); Estimated GFR-MDRD 20; Glucose 81 mg/dL (70-105); Phosphorus 4.9 mg/dL (2.3-4.7); Potassium 4.3 mmol/L (3.5-5.1); Sodium 133 mmol/L (136-145)
--- NOTE | 2017-07-22 08:55 | CON ---
DATE OF CONSULTATION: 07/22/2017 CONSULTING PHYSICIAN: Maribell Castillo M.D. REQUESTING PHYSICIAN: Pipo Swain MD. REASON FOR CONSULTATION: Need for maintenance hemodialysis. IMPRESSION: 1. End-stage renal disease in the context of problem #2. 2. Nephrotic syndrome due to problem #3. 3. Diabetic nephropathy. 4. Urinary retention/obstructive uropathy, likely in the context of benign prostatic hypertrophy. 5. Labile hemodynamics, likely related to medications and hemodialysis with ultrafiltration. PLAN: 1. Deescalate antihypertensive medications now that the patient is on hemodialysis and is undergoing ultrafiltration that has addressed the patient's fluid retention. 2. The patient to be dialyzed today being 07/21/2017 in accordance with the schedule. They will not ultrafiltrate lots today. 3. Renally dose all medications per renal dysfunction. 4. Further management to be dependent on the clinical course. Patient to benefit from Miguel cathete rization. HISTORY OF PRESENT ILLNESS: This is a 57-year-old gentleman recently initiated on hemodialysis, guillermina ng suffered renal failure in the context of diabetic nephropathy. The patient did have nephrotic syn drome for which she responded very well to hemodialysis with ultrafiltration. The patient seems to n ow have improved hemodynamics status post ultrafiltration and presented here with low blood pressure. PAST MEDICAL HISTORY: Significant for Hypertension, type 2 diabetes, chronic diastolic heart failure , end-stage renal disease. MEDICATIONS: Reviewed and as documented on [facility]. ALLERGIES: No known drug allergies. FAMILY HISTORY: None significantly related to the presenting illness. SOCIAL HISTORY: The patient is in correction at this point. Remote history of tobacco usage. No alcohol. REVIEW OF SYSTEMS: As documented in the body of the history. All the other systems were reviewed an d were found not to be significantly related to the presenting illness. PHYSICAL EXAMINATION: GENERAL: The patient was found not to be in any obvious distress, noted with the following vital sig ns. VITAL SIGNS: Afebrile with temperature 98.1, pulse 53, respiratory rate 18, O2 sat 100%, and blood p ressure 116/53. HEENT: Unremarkable with moist oral mucosa. Neck is supple. No conjunctival injection or icterus. CARDIOVASCULAR SYSTEM: First and second heart sounds were heard. RESPIRATORY SYSTEM: Clear to auscultation. DIGESTIVE SYSTEM: Revealed a benign abdomen with positive bowel sounds. EXTREMITIES: No peripheral edema. SKIN: No new gross rash. LYMPHATICS: No peripheral lymphadenopathy. SUMMARY: A 57-year-old gentleman with end-stage renal disease in the context of diabetic nephropathy who presented here with labile hemodynamics. Thank you for this consultation. We will follow with you.
--- NOTE | 2017-07-22 09:17 | PDOC.PN ---
- Subjective Encounter Start Date: 07/22/17 Encounter Start Time: 07:30 pt did not urinate for a long time per , has no BM in hospital yet, has lower abdominal discomfort, he is very weak, does not have apatite, no fever had HD yesterday - Objective Resuscitation Status: Resuscitation Status DNR:Do Not Resuscitate MAR Reviewed: Yes Vital Signs & Weight: Vital Signs (12 hours) Temp Pulse Resp BP Pulse Ox 07/22/17 07:15 98.6 F 60 18 144/65 H 92 L 07/22/17 04:00 97.6 F 56 L 18 124/60 94 L 07/22/17 00:00 99.6 F 62 20 129/61 92 L Weight Weight 162 lb I&O: 07/21/17 07/22/17 07/23/17 06:59 06:59 06:59 Intake Total 360 0 Output Total 0 0 Balance 360 0 Result Diagrams: 07/22/17 04:19 07/22/17 04:19 Additional Labs: Accuchecks 07/22/17 07/21/17 07/21/17 05:26 20:22 17:10 POC Glucose 91 101 97 07/21/17 11:01 POC Glucose 97 EKG Reviewed by me: Yes (nsr) Phys Exam - Physical Examination Constitutional: NAD weak HEENT: PERRLA, moist MMs, sclera anicteric Neck: no JVD, supple Respiratory: no wheezing, no rales, no rhonchi Cardiovascular: RRR, no significant murmur, no rub Gastrointestinal: soft, no distention, positive bowel sounds lower abdominal discomfort Musculoskeletal: no edema right BKA Neurological: non-focal Lymphatic: no nodes Psychiatric: normal affect Skin: no rash, normal turgor Dx/Plan (1) Acute metabolic encephalopathy Code(s): G93.41 - METABOLIC ENCEPHALOPATHY Status: Acute (2) Bilateral atelectasis Code(s): J98.11 - ATELECTASIS Status: Acute (3) Bilateral pleural effusion Code(s): J90 - PLEURAL EFFUSION, NOT ELSEWHERE CLASSIFIED Status: Acute (4) Bradycardia, drug induced Code(s): R00.1 - BRADYCARDIA, UNSPECIFIED; T50.905A - ADVERSE EFFECT OF UNSP DRUG/MEDS/BIOL SUBST, INIT Status: Acute (5) Chronic diastolic heart failure Code(s): I50.32 - CHRONIC DIASTOLIC (CONGESTIVE) HEART FAILURE Status: Acute (6) Elevated troponin Code(s): R74.8 - ABNORMAL LEVELS OF OTHER SERUM ENZYMES Status: Acute (7) Hypertension Code(s): I10 - ESSENTIAL (PRIMARY) HYPERTENSION Status: Acute (8) Hypomagnesemia Code(s): E83.42 - HYPOMAGNESEMIA Status: Acute (9) Anemia of renal disease Code(s): D63.1 - ANEMIA IN CHRONIC KIDNEY DISEASE Status: Chronic (10) Diabetic peripheral vascular disease Code(s): E11.51 - TYPE 2 DIABETES W DIABETIC PERIPHERAL ANGIOPATH W/O GANGRENE Status: Chronic (11) Dyslipidemia Code(s): E78.5 - HYPERLIPIDEMIA, UNSPECIFIED Status: Chronic (12) ESRD (end stage renal disease) on dialysis Code(s): N18.6 - END STAGE RENAL DISEASE; Z99.2 - DEPENDENCE ON RENAL DIALYSIS Status: Chronic (13) H/O: CVA (cerebrovascular accident) Code(s): Z86.73 - PRSNL HX OF TIA (TIA), AND CEREB INFRC W/O RESID DEFICITS Status: Chronic (14) Hx of right BKA Code(s): Z89.511 - ACQUIRED ABSENCE OF RIGHT LEG BELOW KNEE Status: Chronic (15) Nephrotic syndrome Code(s): N04.9 - NEPHROTIC SYNDROME WITH UNSPECIFIED MORPHOLOGIC CHANGES Status: Chronic (16) Secondary hyperparathyroidism of renal origin Code(s): N25.81 - SECONDARY HYPERPARATHYROIDISM OF RENAL ORIGIN Status: Chronic (17) Hypotension Status: Resolved (18) Urinary retention due to benign prostatic hyperplasia Code(s): N40.1 - BENIGN PROSTATIC HYPERPLASIA WITH LOWER URINARY TRACT SYMP; R33.8 - OTHER RETENTION OF URINE Status: Acute - Plan cont current plan of care, plan discussed w/ family, continue antibiotics, PT/OT , delinquency prevention social worker, respiratory therapy * will do bladder scan and if high volume, will do In and out cathteter and send UA and urine culture * he is on levaquin empirically * HD as per nephrology * code status discussed with pt and his bedside, and they want to change to DNR * will DC Tele * transfer to medical * his prognosis is very poor * medication reviewed as below * symptomatic treatment * discussed with . Review of Systems - Review of Systems Constitutional: weakness, malaise. negative: fever, chills, sweats, other Eyes: negative: Pain, Vision Change, Conjunctivae Inflammation, Eyelid Inflammation, Redness, Other ENT: negative: Ear Pain, Ear Discharge, Nose Pain, Nose Discharge, Nose Congestion, Mouth Pain, Mouth Swelling, Throat Pain, Throat Swelling, Other Respiratory: negative: Cough, Dry, Shortness of Breath, Hemoptysis, SOB with Excertion, Pleuritic Pain, Sputum, Wheezing Cardiovascular: negative: chest pain, palpitations, orthopnea, paroxysmal nocturnal dyspnea, edema, light headedness, other Gastrointestinal: Abdominal Pain, Constipation. negative: Nausea, Vomiting, Diarrhea, Melena, Hematochezia, Other Genitourinary: Retention. negative: Dysuria, Frequency, Incontinence, Hematuria , Other Musculoskeletal: negative: Neck Pain, Shoulder Pain, Arm Pain, Back Pain, Hand Pain, Leg Pain, Foot Pain, Other Skin: negative: Rash, Lesions, Giles, Bruising, Other - Medications/Allergies Allergies/Adverse Reactions: Allergies Allergy/AdvReac Type Severity Reaction Status Date / Time No Known Allergies Allergy Verified 06/24/17 15:20 Medications: Current Medications Acetaminophen (Tylenol) 650 mg PO Q4H PRN PRN Reason: Headache/Fever or Pain Hydrocodone Bitart/Acetaminophen ([place] 5/325) 1 tab PO Q4H PRN PRN Reason: Moderate Pain (4-6) Al Hydroxide/Mg Hydroxide (Maalox) 15 ml PO Q4H PRN PRN Reason: Heartburn or Indigestion Artificial Tears (Tears Naturale) 0 drop EA EYE PRN PRN PRN Reason: Dry Eyes Aspirin (Ecotrin) 81 mg PO DAILY [facility] Last Admin: 07/21/17 08:26 Dose: 81 mg Atorvastatin Calcium (Lipitor) 10 mg PO DAILY [facility] Last Admin: 07/21/17 08:26 Dose: 10 mg Dextrose/Water (Dextrose 50%) 25 gm SLOW IVP PRN PRN PRN Reason: Hypoglycemia Famotidine (Pepcid) 20 mg PO DAILY [facility] Last Admin: 07/21/17 08:26 Dose: 20 mg Ferrous Sulfate (Feosol) 325 mg PO [facility] Last Admin: 07/21/17 08:26 Dose: 325 mg Glucagon (Glucagon) 1 mg IM PRN PRN PRN Reason: Hypoglycemia Guaifenesin (Robitussin Sf) 200 mg PO Q4H PRN PRN Reason: Cough Hydralazine HCl (Apresoline) 10 mg SLOW IVP Q4H PRN PRN Reason: Systolic BP > 180 Dextrose/Water (D5w) 1,000 mls @ 0 mls/hr IV .Q0M PRN; As Directed PRN Reason: Hypoglycemia Levofloxacin 500 mg/ Device 100 mls @ 100 mls/hr IVPB Q2DAYS@2100 [facility] Insulin Human Lispro (Humalog) 0 units SC .MILD SLIDING SCALE PRN PRN Reason: Mild Correctional Scale Loperamide HCl (Imodium) 2 mg PO PRN PRN PRN Reason: Diarrhea/Loose Stools Loratadine (Claritin) 10 mg PO DAILYPRN PRN PRN Reason: Sinus Symptoms Magnesium Hydroxide (Milk Of Magnesium) 30 ml PO DAILYPRN PRN PRN Reason: Constipation Mineral Oil/White Petrolatum (Eucerin Cream) 0 gm TOP BIDPRN PRN PRN Reason: Dry Skin Nitroglycerin (Nitrostat) 0.4 mg SL Q5MIN PRN PRN Reason: Chest Pain Ondansetron HCl (Zofran Odt) 4 mg PO Q6H PRN PRN Reason: Nausea/Vomiting Ondansetron HCl (Zofran) 4 mg IVP Q6H PRN PRN Reason: Nausea/Vomiting Phenol (Chloraseptic [place] 180 Ml Bot) 0 ml PO PRN PRN PRN Reason: Sore Throat Senna (Senokot) 2 tab PO HSPRN PRN PRN Reason: Constipation Sertraline HCl (Zoloft) 25 mg PO DAILY [facility] Sodium Chloride ([place] Nasal [place] 0.65%) 0 ml EA NARE QIDPRN PRN PRN Reason: Nasal Congestion Vitamin B Complex/Vit C/Folic Acid (Nephro-Shalini Tablet) 1 tab PO DAILY [facility] Last Admin: 07/21/17 08:26 Dose: 1 tab
[2017-07-22 11:03] LABS: Bilirubin Negative (Negative); Blood, Urine Negative (Negative); Clarity CLEAR (Clear); Glucose, Urine (Dipstick) 250 mg/dL (Negative); Leukocyte Negative (Negative); Nitrite Negative (Negative); Protein, Urine (Dipstick) > or equal to 300 mg/dL (Neg-Trace); Specific Gravity, Urine 1.023 (1.002-1.036); Urobilinogen 0.2 mg/dL (0.2-1.0)
[2017-07-22 11:05] LABS: Bacteria/HPF None Seen HPF (None Seen); Hyaline Casts/LPF 0-3 HYALINE CAST LPF (0-3 Hyaline); WBC/HPF 0-3 HPF (0-3)
[2017-07-22 11:15] LABS: RBC/HPF 0-3 HPF (0-3); Renal Epithelial None Seen HPF (0-3); Transitional Epithelial NONE SEEN HPF (0-3)
[2017-07-22] MEDS: Atorvastatin Calcium 10 MG TAB PO SCH (11:50)
[2017-07-22] MEDS: Ferrous Sulfate 325 MG TAB PO SCH (11:50)
[2017-07-22] MEDS: Aspirin 81 mg Enteric Coated Tablet PO SCH (11:50)
[2017-07-22] MEDS: Folic Acid/Vit B Comp W-C PO SCH (11:51)
[2017-07-22] MEDS: Famotidine 20 MG TAB PO SCH (11:51)
--- NOTE | 2017-07-22 14:33 | CON ---
DATE OF CONSULTATION: 07/22/2017 REASON FOR CONSULTATION: Urinary retention. HISTORY OF PRESENT ILLNESS: Mr. Gonzalo Mills is a 57-year-old gentleman who is on hemodialysis. He was residing at [facility] when he was noted to have bradycardia, hypotension and altered mental status and was therefore brought to [facility] on 07/21/2017. According to his , he has been having frequent small volume voiding for at least a couple of weeks. He underwent a CT scan du ring this hospitalization, was noted to have a distended bladder. He has no prior urologic history i n regards to the prostate. As mentioned above, he has end-stage renal disease. PAST MEDICAL HISTORY: End-stage renal disease on hemodialysis, congestive heart failure, peripheral vascular disease, type 2 diabetes mellitus, and hypertension. PAST SURGICAL HISTORY: Right BKA, dialysis access catheter placed, and right hand surgery. ALLERGIES: No known drug allergies. FAMILY HISTORY: Noncontributory. REVIEW OF SYSTEMS: Respiratory: Denies shortness of breath. Cardiovascular: Denies chest pain or palpitations. Gastrointestinal: Denies chronic constipation, diarrhea. Genitourinary: Please see history of present illness. PHYSICAL EXAMINATION: GENERAL: He is somnolent at this time. He is in no acute distress. VITAL SIGNS: Temperature 98.6, pulse 60, blood pressure 144/65. HEENT: Normocephalic. CHEST: Clear to auscultation. CARDIOVASCULAR: No murmurs auscultated. ABDOMEN: Soft, nontender, no palpable masses. Liver and spleen are not palpable. No abdominal tend erness. EXTREMITIES: Right BKA with a well-healed stump. IMPRESSION: Urinary retention. This is probably a combination of benign prostatic hypertrophy and h is diabetes resulting in some detrusor dysfunction. He had symptoms prior to admission, but the diag nosis was determined by CT scan with a distended bladder. He has a Miguel catheter in place, draining well now. RECOMMENDATIONS: 1. Begin Flomax. 2. Miguel catheter for 5 or more days before voiding trial, which can be performed as an outpatient.
--- NOTE | 2017-07-22 14:57 | PRG ---
DATE OF SERVICE: 07/22/2017 SUBJECTIVE: The patient was seen and examined today with no new complaint noted. OBJECTIVE: VITAL SIGNS: Afebrile with temperature 99, pulse 66, respiratory rate 18, O2 saturation of 94% with blood pressure 154/60. HEENT: Unremarkable. Moist oral mucosa. NECK: Supple. No conjunctival injection or icterus. CARDIOVASCULAR: First and second heart sounds were heard. RESPIRATORY: Clear to auscultation. DIGESTIVE: Revealed a benign abdomen with positive bowel sounds. EXTREMITIES: No peripheral edema. SKIN: No new gross rash. LYMPHATICS: No peripheral lymphadenopathy. IMPRESSION: 1. End-stage renal disease, on hemodialysis, dialyzed yesterday without any event. 2. Labile hemodynamics, which has improved since holding some of the patient's antihypertensive medi cations. 3. Nephrotic syndrome. PLAN: 1. The patient's bladder to be evaluated to make sure that there is no more bladder . 2. From the renal standpoint, the patient is good for discharge.
[2017-07-22] MEDS: HYDROcodone/Acetaminophen 5/325 mg Tablet PO PRN (17:05)
[2017-07-22] MEDS: Tamsulosin HCl 0.4 MG CAP PO SCH (21:17)
[2017-07-23 05:43] LABS: #Lymphocytes 1.1 thou/uL (1.20-3.40); #Monocytes 0.3 thou/uL (0.11-0.59); #Neutrophils 4.8 thou/uL (1.40-6.50); %Basophils 0.1 % (0.0-1.0); %Eosinophils 0.2 % (0.0-10.0); %Monocytes 4.9 % (0.0-10.0); %Neutrophils 76.8 % (42.0-75.0); Hemoglobin 9.3 g/dL (14.0-18.0); Mean Corpuscular HGB CONC 34.2 g/dL (32.0-36.0); Mean Corpuscular Volume 96.4 fl (80.0-94.0); Platelet Count 165 thou/uL (130-400); RBC Distribution Width 12.4 % (11.5-14.5); Red Blood Cell (RBC) Count 2.81 mill/uL (4.70-6.10); White Blood Cell (WBC) Count 6.3 thou/uL (4.8-10.8)
[2017-07-23 06:28] LABS: Anion Gap 11 mmol/L (10-20); BUN (Urea Nitrogen) 38 mg/dL (8.4-25.7); BUN/Creatinine Ratio 8.32; Calc. Creatinine Clearance 19 mL/min (70-130); Calcium 7.5 mg/dL (7.8-10.44); Carbon Dioxide 27 mmol/L (22-29); Chloride 100 mmol/L (98-107); Estimated GFR-MDRD 13; Glucose 78 mg/dL (70-105); Phosphorus 5.2 mg/dL (2.3-4.7); Potassium 4.1 mmol/L (3.5-5.1); Sodium 134 mmol/L (136-145)
[2017-07-23] MEDS: Famotidine 20 MG TAB PO SCH (09:14)
[2017-07-23] MEDS: Aspirin 81 mg Enteric Coated Tablet PO SCH (09:15)
[2017-07-23] MEDS: Ferrous Sulfate 325 MG TAB PO SCH (09:15)
[2017-07-23] MEDS: Folic Acid/Vit B Comp W-C PO SCH (09:15)
[2017-07-23] MEDS: Atorvastatin Calcium 10 MG TAB PO SCH (09:15)
--- NOTE | 2017-07-23 10:41 | PDOC.PN ---
- Subjective Encounter Start Date: 07/23/17 Encounter Start Time: 08:00 Patient seen and examined. No new complaints. No overnight events pt is depressed - Objective Resuscitation Status: Resuscitation Status DNR:Do Not Resuscitate MAR Reviewed: Yes Vital Signs & Weight: Vital Signs (12 hours) Temp Pulse Resp BP Pulse Ox 07/23/17 08:00 98.9 F 56 L 18 150/69 H 93 L 07/23/17 04:15 99.4 F 58 L 18 152/64 H 94 L 07/23/17 00:18 98.3 F 56 L 18 134/61 93 L Weight Admit Weight 162 lb Weight 162 lb I&O: 07/22/17 07/23/17 07/24/17 06:59 06:59 06:59 Intake Total 0 670 Output Total 0 1310 Balance 0 -640 Result Diagrams: 07/23/17 05:29 07/23/17 05:29 Additional Labs: Accuchecks 07/23/17 07/22/17 07/22/17 06:21 19:30 16:16 POC Glucose 80 92 106 07/22/17 11:24 POC Glucose 104 Phys Exam - Physical Examination Constitutional: NAD HEENT: PERRLA, moist MMs, sclera anicteric Neck: no JVD, supple Respiratory: no wheezing, no rales, no rhonchi Cardiovascular: RRR, no significant murmur, no rub Gastrointestinal: soft, non-tender, no distention, positive bowel sounds right bka Neurological: moves all 4 limbs Lymphatic: no nodes Deviation from normal: depressed Skin: no rash, normal turgor Dx/Plan (1) Acute metabolic encephalopathy Code(s): G93.41 - METABOLIC ENCEPHALOPATHY Status: Acute (2) Bilateral atelectasis Code(s): J98.11 - ATELECTASIS Status: Acute (3) Bilateral pleural effusion Code(s): J90 - PLEURAL EFFUSION, NOT ELSEWHERE CLASSIFIED Status: Acute (4) Bradycardia, drug induced Code(s): R00.1 - BRADYCARDIA, UNSPECIFIED; T50.905A - ADVERSE EFFECT OF UNSP DRUG/MEDS/BIOL SUBST, INIT Status: Acute (5) Chronic diastolic heart failure Code(s): I50.32 - CHRONIC DIASTOLIC (CONGESTIVE) HEART FAILURE Status: Acute (6) Elevated troponin Code(s): R74.8 - ABNORMAL LEVELS OF OTHER SERUM ENZYMES Status: Acute (7) Hypertension Code(s): I10 - ESSENTIAL (PRIMARY) HYPERTENSION Status: Acute (8) Hypomagnesemia Code(s): E83.42 - HYPOMAGNESEMIA Status: Acute (9) Anemia of renal disease Code(s): D63.1 - ANEMIA IN CHRONIC KIDNEY DISEASE Status: Chronic (10) Diabetic peripheral vascular disease Code(s): E11.51 - TYPE 2 DIABETES W DIABETIC PERIPHERAL ANGIOPATH W/O GANGRENE Status: Chronic (11) Dyslipidemia Code(s): E78.5 - HYPERLIPIDEMIA, UNSPECIFIED Status: Chronic (12) ESRD (end stage renal disease) on dialysis Code(s): N18.6 - END STAGE RENAL DISEASE; Z99.2 - DEPENDENCE ON RENAL DIALYSIS Status: Chronic (13) H/O: CVA (cerebrovascular accident) Code(s): Z86.73 - PRSNL HX OF TIA (TIA), AND CEREB INFRC W/O RESID DEFICITS Status: Chronic (14) Hx of right BKA Code(s): Z89.511 - ACQUIRED ABSENCE OF RIGHT LEG BELOW KNEE Status: Chronic (15) Nephrotic syndrome Code(s): N04.9 - NEPHROTIC SYNDROME WITH UNSPECIFIED MORPHOLOGIC CHANGES Status: Chronic (16) Secondary hyperparathyroidism of renal origin Code(s): N25.81 - SECONDARY HYPERPARATHYROIDISM OF RENAL ORIGIN Status: Chronic (17) Hypotension Status: Resolved (18) Urinary retention due to benign prostatic hyperplasia Code(s): N40.1 - BENIGN PROSTATIC HYPERPLASIA WITH LOWER URINARY TRACT SYMP; R33.8 - OTHER RETENTION OF URINE Status: Acute - Plan cont current plan of care, plan discussed w/ family, continue antibiotics, social work specialist * will consult palliative care * give Thorazine for hiccough * medication reviewed as below * symptomatic treatment * continue empiric antibiotics. Review of Systems - Review of Systems Constitutional: weakness, malaise Eyes: negative: Pain, Vision Change, Conjunctivae Inflammation, Eyelid Inflammation, Redness, Other ENT: negative: Ear Pain, Ear Discharge, Nose Pain, Nose Discharge, Nose Congestion, Mouth Pain, Mouth Swelling, Throat Pain, Throat Swelling, Other Respiratory: negative: Cough, Dry, Shortness of Breath, Hemoptysis, SOB with Excertion, Pleuritic Pain, Sputum, Wheezing Cardiovascular: negative: chest pain, palpitations, orthopnea, paroxysmal nocturnal dyspnea, edema, light headedness, other Gastrointestinal: negative: Nausea, Vomiting, Abdominal Pain, Diarrhea, Constipation, Melena, Hematochezia, Other Genitourinary: negative: Dysuria, Frequency, Incontinence, Hematuria, Retention , Other Musculoskeletal: negative: Neck Pain, Shoulder Pain, Arm Pain, Back Pain, Hand Pain, Leg Pain, Foot Pain, Other Skin: negative: Rash, Lesions, Giles, Bruising, Other - Medications/Allergies Allergies/Adverse Reactions: Allergies Allergy/AdvReac Type Severity Reaction Status Date / Time No Known Allergies Allergy Verified 06/24/17 15:20 Medications: Current Medications Acetaminophen (Tylenol) 650 mg PO Q4H PRN PRN Reason: Headache/Fever or Pain Hydrocodone Bitart/Acetaminophen ([place] 5/325) 1 tab PO Q4H PRN PRN Reason: Moderate Pain (4-6) Last Admin: 07/22/17 17:05 Dose: 1 tab Al Hydroxide/Mg Hydroxide (Maalox) 15 ml PO Q4H PRN PRN Reason: Heartburn or Indigestion Artificial Tears (Tears Naturale) 0 drop EA EYE PRN PRN PRN Reason: Dry Eyes Aspirin (Ecotrin) 81 mg PO DAILY [facility] Last Admin: 07/23/17 09:15 Dose: 81 mg Atorvastatin Calcium (Lipitor) 10 mg PO DAILY [facility] Last Admin: 07/23/17 09:15 Dose: 10 mg Dextrose/Water (Dextrose 50%) 25 gm SLOW IVP PRN PRN PRN Reason: Hypoglycemia Famotidine (Pepcid) 20 mg PO DAILY [facility] Last Admin: 07/23/17 09:14 Dose: 20 mg Ferrous Sulfate (Feosol) 325 mg PO QA[facility] Last Admin: 07/23/17 09:15 Dose: 325 mg Glucagon (Glucagon) 1 mg IM PRN PRN PRN Reason: Hypoglycemia Guaifenesin (Robitussin Sf) 200 mg PO Q4H PRN PRN Reason: Cough Hydralazine HCl (Apresoline) 10 mg SLOW IVP Q4H PRN PRN Reason: Systolic BP > 180 Dextrose/Water (D5w) 1,000 mls @ 0 mls/hr IV .Q0M PRN; As Directed PRN Reason: Hypoglycemia Levofloxacin 500 mg/ Device 100 mls @ 100 mls/hr IVPB Q2DAYS@2100 [facility] Last Admin: 07/22/17 21:17 Dose: 100 mls Insulin Human Lispro (Humalog) 0 units SC .MILD SLIDING SCALE PRN PRN Reason: Mild Correctional Scale Loperamide HCl (Imodium) 2 mg PO PRN PRN PRN Reason: Diarrhea/Loose Stools Loratadine (Claritin) 10 mg PO DAILYPRN PRN PRN Reason: Sinus Symptoms Magnesium Hydroxide (Milk Of Magnesium) 30 ml PO DAILYPRN PRN PRN Reason: Constipation Mineral Oil/White Petrolatum (Eucerin Cream) 0 gm TOP BIDPRN PRN PRN Reason: Dry Skin Nitroglycerin (Nitrostat) 0.4 mg SL Q5MIN PRN PRN Reason: Chest Pain Ondansetron HCl (Zofran Odt) 4 mg PO Q6H PRN PRN Reason: Nausea/Vomiting Ondansetron HCl (Zofran) 4 mg IVP Q6H PRN PRN Reason: Nausea/Vomiting Phenol (Chloraseptic [place] 180 Ml Bot) 0 ml PO PRN PRN PRN Reason: Sore Throat Senna (Senokot) 2 tab PO HSPRN PRN PRN Reason: Constipation Sertraline HCl (Zoloft) 25 mg PO DAILY [facility] Last Admin: 07/23/17 09:15 Dose: 25 mg Sodium Chloride ([place] Nasal [place] 0.65%) 0 ml EA NARE QIDPRN PRN PRN Reason: Nasal Congestion Tamsulosin HCl (Flomax) 0.4 mg PO [facility] Last Admin: 07/22/17 21:17 Dose: 0.4 mg Vitamin B Complex/Vit C/Folic Acid (Nephro-Shalini Tablet) 1 tab PO DAILY [facility] Last Admin: 07/23/17 09:15 Dose: 1 tab
[2017-07-23] MEDS ORDERED: chlorproMAZINE HCl 25 MG in Sodium Chloride 0.9% 50 ML IVPB SCH ×2 (11:15→19:30)
[2017-07-23] MEDS: Tamsulosin HCl 0.4 MG CAP PO SCH (20:15)
[2017-07-24] MEDS: Ferrous Sulfate 325 MG TAB PO SCH (08:47)
[2017-07-24] MEDS: Folic Acid/Vit B Comp W-C PO SCH (08:48)
[2017-07-24] MEDS: Famotidine 20 MG TAB PO SCH (08:48)
[2017-07-24] MEDS: Atorvastatin Calcium 10 MG TAB PO SCH (08:49)
[2017-07-24] MEDS: Aspirin 81 mg Enteric Coated Tablet PO SCH (08:49)
[2017-07-24] MEDS ORDERED: NIFEdipine XL 60 MG TAB PO SCH (09:00)
[2017-07-24] MEDS ORDERED: Metoprolol Tartrate 25 MG TAB PO SCH (09:00)
--- NOTE | 2017-07-24 10:09 | DIS ---
DATE OF ADMISSION: 07/20/2017 DATE OF DISCHARGE: 07/24/2017 PRIMARY CARE PHYSICIAN: Vasyl Rivera. DISCHARGE DISPOSITION: [facility]. PRIMARY DISCHARGE DIAGNOSES: Acute metabolic encephalopathy, bilateral atelectasis, bilateral pleura l effusion, drug-induced bradycardia, hypotension resolved, urinary retention due to benign enlargeme nt of prostate, hypomagnesemia replaced. SECONDARY DISCHARGE DIAGNOSES: Secondary hyperparathyroidism of renal origin, nephrotic syndrome, hi story of right below knee amputation, history of cerebrovascular accident, end-stage renal disease, d yslipidemia, diabetic peripheral vascular disease, anemia of renal disease, chronic diastolic heart f ailure, elevated troponin due to renal failure, hypertension, physical deconditioning, anxiety and de pression. PRIMARY PROCEDURE/OPERATION: Maintenance hemodialysis while in hospital. RADIOLOGICAL INVESTIGATION: Chest x-ray on admission showed bilateral patchy perihilar opacities. A bdomen and pelvis CT scan showed bibasilar atelectasis, bilateral pleural effusion, distention of uri nary bladder, diffuse vascular disease. SIGNIFICANT LABORATORY DATA: WBC 6.3, hemoglobin 9.3, platelets 165. INR 1.0. Sodium 134, potassiu m 4.1, BUN 38, creatinine 4.57, calcium 7.5, phosphorus 5.2, albumin 2.0, magnesium 1.5. Hemoglobin A1c 5.0. Ammonia 16. BNP 134.6, troponin 0.045, lipase 24. Urinalysis unremarkable. Blood culture negative. Urine culture negative. Stool for guaiac positive, but hemoglobin and hematocrit remaine d stable. DISCHARGE MEDICATIONS: Aspirin 81 mg p.o. daily, Lipitor 10 mg p.o. daily, PhosLo 1334 mg p.o. t.i.d ., Procrit 5000 units IV push as directed with dialysis, Pepcid 20 mg p.o. daily, ferrous sulfate 325 mg p.o. daily, Nephro-Shalini 1 tablet p.o. daily, Procardia-XL 60 mg p.o. daily, Humalog insulin as pe r sliding scale, Flomax 0.4 mg p.o. at bedtime, and Zoloft 25 mg p.o. daily. CONTRAINDICATIONS: None. CODE STATUS: DNR. This was discussed during this hospitalization. INPATIENT CONSULTANTS: Dr. Reyna was following for maintenance hemodialysis. Dr. Jenesn barriga was consulted for urinary retention. TEST RESULTS PENDING ON DISCHARGE: None. ALLERGIES: No known drug allergy. DISCHARGE PLAN: Post hospital, patient is discharged [facility] HOSPITAL COURSE: A 57-year-old male who was admitted by Dr. Wiliam Foss on 07/21/2017. Please see h is H&P for further details. This patient lives at [facility]. He was brought to [facility] use he was altered. He was very weak. He was hypotensive. He was bradycardic. He was having abdom inal pain. He was not able to void for several hours. In the emergency room, CT of the abdomen and pelvis showed distended urinary bladder. Incidental finding was bilateral pleural effusion and suspe cted pneumonia finding. He was given empirically levofloxacin while in hospital. Patient did not bear ve any fever while in hospital. The patient was getting maintenance hemodialysis while in hospital. We did bladder scan and he was having a significant amount of urine and that is why we did in and out catheter and subsequently we decided to leave Miguel catheter in. We consulted Urology and Urology r ecommended to continue Miguel catheter in and voiding trial after 5 days and we started Flomax. We ar e suspecting his urinary retention is benign enlargement of prostate. While in hospital, his bradycardia was attributed to be due to metoprolol and that is why that medica tion is stopped at this point, but if pulse goes faster, then low dose of beta noemi like 12.5 mg p .o. twice daily can be restarted after discharge. We started PhosLo for his secondary hyperparathyro idism of renal origin. We started Nephro-Shalini and ferrous sulfate for his anemia of renal disease. Initially, patient was hypotensive, but now his blood pressure is going up and that is why we decided to give him Procardia-XL 30 mg upon discharge. Rest of blood pressure medication, we discontinued. Patient was altered and that was attributed to be due to metabolic encephalopathy, but by the time of discharge, the patient's metabolic encephalopathy resolved. During this admission, we discussed cod e status with the patient and and they made DNR. While in hospital, he also had intractable hic cup that was controlled with chlorpromazine. While in hospital, the patient appeared very depressed and he has not wanted to go for dialysis and h e wanted to and that is why we started antidepressant medicines Zoloft and after that his mood wa s perfectly fine and now the patient is more cheerful and he wanted to continue dialysis. The patient is seen and examined at bedside today. Plan of care discussed with the patient and patie nt's . The patient has to go to assisted home today because cannot take care of him at home and patient is physically weak. Today, patient is due for dialysis. PHYSICAL EXAMINATION: VITAL SIGNS: Currently, temperature 97.9, pulse 61, blood pressure 127/66, saturation 95% on room ai r, weight 162 pounds. GENERAL: The patient is currently alert, awake, no obvious acute distress. HEAD: Normocephalic, atraumatic. EYES: Pupils round, reactive to light. Extraocular muscles intact. ENT: Oropharynx within normal limits. Moist mucous membranes. NECK: Supple, no JVD, no thyromegaly. LUNGS: Clear to auscultation. Air entry reduced basally, but no rales. CARDIAC: S1, S2 regular without any murmur. ABDOMEN: Soft and benign without any tenderness. EXTREMITIES: Right below knee amputation, left lower extremity within normal limits. NEUROLOGIC: Nonfocal examination. Paperwork for discharge done. Discharge medication reconciliation done. Plan of care discussed with patient and family member. Total time spent today on discharge day to arrange this discharge is more than 30 minutes.
--- NOTE | 2017-07-24 11:04 | PDOC.PN ---
- Subjective Encounter Start Date: 07/24/17 Encounter Start Time: 10:00 -: old records requested/rev Patient seen and examined. No new complaints. No overnight events - Objective Resuscitation Status: Resuscitation Status DNR:Do Not Resuscitate MAR Reviewed: Yes Vital Signs & Weight: Vital Signs (12 hours) Temp Pulse Resp BP BP Pulse Ox 07/24/17 08:48 61 127/66 07/24/17 08:10 97.9 F 61 18 127/66 95 07/24/17 07:50 97.9 F 61 16 94 L 07/24/17 04:22 98.2 F 56 L 16 179/70 H 94 L 07/24/17 00:25 98.2 F 57 L 16 163/74 H 95 Weight Admit Weight 162 lb Weight 162 lb I&O: 07/23/17 07/24/17 07/25/17 06:59 06:59 06:59 Intake Total 670 450 Output Total 1310 750 Balance -640 -300 Result Diagrams: 07/23/17 05:29 07/23/17 05:29 Additional Labs: Accuchecks 07/24/17 07/23/17 07/23/17 04:51 20:43 15:45 POC Glucose 98 108 81 07/23/17 11:51 POC Glucose 74 Phys Exam - Physical Examination Constitutional: NAD HEENT: PERRLA, moist MMs, sclera anicteric Neck: no JVD, supple Respiratory: no wheezing, no rales, no rhonchi Cardiovascular: RRR, no significant murmur, no rub Gastrointestinal: soft, non-tender, no distention, positive bowel sounds right BKA Neurological: non-focal Psychiatric: normal affect Skin: no rash, normal turgor Dx/Plan (1) Acute metabolic encephalopathy Code(s): G93.41 - METABOLIC ENCEPHALOPATHY Status: Acute (2) Bilateral atelectasis Code(s): J98.11 - ATELECTASIS Status: Acute (3) Bilateral pleural effusion Code(s): J90 - PLEURAL EFFUSION, NOT ELSEWHERE CLASSIFIED Status: Acute (4) Bradycardia, drug induced Code(s): R00.1 - BRADYCARDIA, UNSPECIFIED; T50.905A - ADVERSE EFFECT OF UNSP DRUG/MEDS/BIOL SUBST, INIT Status: Acute (5) Chronic diastolic heart failure Code(s): I50.32 - CHRONIC DIASTOLIC (CONGESTIVE) HEART FAILURE Status: Acute (6) Elevated troponin Code(s): R74.8 - ABNORMAL LEVELS OF OTHER SERUM ENZYMES Status: Acute (7) Hypertension Code(s): I10 - ESSENTIAL (PRIMARY) HYPERTENSION Status: Acute (8) Hypomagnesemia Code(s): E83.42 - HYPOMAGNESEMIA Status: Acute (9) Anemia of renal disease Code(s): D63.1 - ANEMIA IN CHRONIC KIDNEY DISEASE Status: Chronic (10) Diabetic peripheral vascular disease Code(s): E11.51 - TYPE 2 DIABETES W DIABETIC PERIPHERAL ANGIOPATH W/O GANGRENE Status: Chronic (11) Dyslipidemia Code(s): E78.5 - HYPERLIPIDEMIA, UNSPECIFIED Status: Chronic (12) ESRD (end stage renal disease) on dialysis Code(s): N18.6 - END STAGE RENAL DISEASE; Z99.2 - DEPENDENCE ON RENAL DIALYSIS Status: Chronic (13) H/O: CVA (cerebrovascular accident) Code(s): Z86.73 - PRSNL HX OF TIA (TIA), AND CEREB INFRC W/O RESID DEFICITS Status: Chronic (14) Hx of right BKA Code(s): Z89.511 - ACQUIRED ABSENCE OF RIGHT LEG BELOW KNEE Status: Chronic (15) Nephrotic syndrome Code(s): N04.9 - NEPHROTIC SYNDROME WITH UNSPECIFIED MORPHOLOGIC CHANGES Status: Chronic (16) Secondary hyperparathyroidism of renal origin Code(s): N25.81 - SECONDARY HYPERPARATHYROIDISM OF RENAL ORIGIN Status: Chronic (17) Hypotension Status: Resolved (18) Urinary retention due to benign prostatic hyperplasia Code(s): N40.1 - BENIGN PROSTATIC HYPERPLASIA WITH LOWER URINARY TRACT SYMP; R33.8 - OTHER RETENTION OF URINE Status: Acute - Plan cont current plan of care, 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 Review of Systems - Review of Systems ENT: negative: Ear Pain, Ear Discharge, Nose Pain, Nose Discharge, Nose Congestion, Mouth Pain, Mouth Swelling, Throat Pain, Throat Swelling, Other Respiratory: negative: Cough, Dry, Shortness of Breath, Hemoptysis, SOB with Excertion, Pleuritic Pain, Sputum, Wheezing Cardiovascular: negative: chest pain, palpitations, orthopnea, paroxysmal nocturnal dyspnea, edema, light headedness, other Gastrointestinal: negative: Nausea, Vomiting, Abdominal Pain, Diarrhea, Constipation, Melena, Hematochezia, Other Genitourinary: negative: Dysuria, Frequency, Incontinence, Hematuria, Retention , Other Musculoskeletal: negative: Neck Pain, Shoulder Pain, Arm Pain, Back Pain, Hand Pain, Leg Pain, Foot Pain, Other - Medications/Allergies Allergies/Adverse Reactions: Allergies Allergy/AdvReac Type Severity Reaction Status Date / Time No Known Allergies Allergy Verified 06/24/17 15:20 Medications: Current Medications Acetaminophen (Tylenol) 650 mg PO Q4H PRN PRN Reason: Headache/Fever or Pain Hydrocodone Bitart/Acetaminophen ([place] 5/325) 1 tab PO Q4H PRN PRN Reason: Moderate Pain (4-6) Last Admin: 07/22/17 17:05 Dose: 1 tab Al Hydroxide/Mg Hydroxide (Maalox) 15 ml PO Q4H PRN PRN Reason: Heartburn or Indigestion Artificial Tears (Tears Naturale) 0 drop EA EYE PRN PRN PRN Reason: Dry Eyes Aspirin (Ecotrin) 81 mg PO DAILY [facility] Last Admin: 07/24/17 08:49 Dose: Not Given Atorvastatin Calcium (Lipitor) 10 mg PO DAILY [facility] Last Admin: 07/24/17 08:49 Dose: Not Given Dextrose/Water (Dextrose 50%) 25 gm SLOW IVP PRN PRN PRN Reason: Hypoglycemia Famotidine (Pepcid) 20 mg PO DAILY [facility] Last Admin: 07/24/17 08:48 Dose: Not Given Ferrous Sulfate (Feosol) [address] [facility] Last Admin: 07/24/17 08:47 Dose: Not Given Glucagon (Glucagon) 1 mg IM PRN PRN PRN Reason: Hypoglycemia Guaifenesin (Robitussin Sf) 200 mg PO Q4H PRN PRN Reason: Cough Hydralazine HCl (Apresoline) 10 mg SLOW IVP Q4H PRN PRN Reason: Systolic BP > 180 Dextrose/Water (D5w) 1,000 mls @ 0 mls/hr IV .Q0M PRN; As Directed PRN Reason: Hypoglycemia Levofloxacin 500 mg/ Device 100 mls @ 100 mls/hr IVPB Q2DAYS@2100 [facility] Last Admin: 07/22/17 21:17 Dose: 100 mls Insulin Human Lispro (Humalog) 0 units SC .MILD SLIDING SCALE PRN PRN Reason: Mild Correctional Scale Loperamide HCl (Imodium) 2 mg PO PRN PRN PRN Reason: Diarrhea/Loose Stools Loratadine (Claritin) 10 mg PO DAILYPRN PRN PRN Reason: Sinus Symptoms Magnesium Hydroxide (Milk Of Magnesium) 30 ml PO DAILYPRN PRN PRN Reason: Constipation Mineral Oil/White Petrolatum (Eucerin Cream) 0 gm TOP BIDPRN PRN PRN Reason: Dry Skin Nitroglycerin (Nitrostat) 0.4 mg SL Q5MIN PRN PRN Reason: Chest Pain Ondansetron HCl (Zofran Odt) 4 mg PO Q6H PRN PRN Reason: Nausea/Vomiting Ondansetron HCl (Zofran) 4 mg IVP Q6H PRN PRN Reason: Nausea/Vomiting Phenol (Chloraseptic [place] 180 Ml Bot) 0 ml PO PRN PRN PRN Reason: Sore Throat Senna (Senokot) 2 tab PO HSPRN PRN PRN Reason: Constipation Sertraline HCl (Zoloft) 25 mg PO DAILY [facility] Last Admin: 07/24/17 08:48 Dose: Not Given Sodium Chloride ([place] Nasal [place] 0.65%) 0 ml EA NARE QIDPRN PRN PRN Reason: Nasal Congestion Tamsulosin HCl (Flomax) 0.4 mg PO [facility] Last Admin: 07/23/17 20:15 Dose: 0.4 mg Vitamin B Complex/Vit C/Folic Acid (Nephro-Shalini Tablet) 1 tab PO DAILY [facility] Last Admin: 07/24/17 08:48 Dose: Not Given
[2017-07-24 12:17] VITALS: BP 159/72; TEMP 98.6
[2017-07-24] MEDS: HYDROcodone/Acetaminophen 5/325 mg Tablet PO PRN (18:41)
--- NOTE | 2017-07-24 21:10 | PRG ---
DATE OF SERVICE: 07/24/2017 SUBJECTIVE: The patient was seen and examined today at dialysis, continuously having hiccups, not re ally feeling very well. Noted with the following vital signs. OBJECTIVE: VITAL SIGNS: Afebrile with temperature 97.9, pulse 61, respiratory rate 18, blood pressure 127/66, O 2 saturation 95%. HEENT: Unremarkable. Moist oral mucosa. Neck was supple. No conjunctival injection or icterus. CARDIOVASCULAR: First and second heart sounds were heard. RESPIRATORY: Clear to auscultation. DIGESTIVE: Revealed a benign abdomen with positive bowel sounds. The patient did express some tende rness on palpation. EXTREMITIES: No peripheral edema. SKIN: No new gross rash. LYMPHATICS: No peripheral lymphadenopathy. IMPRESSION: 1. End-stage renal disease, on hemodialysis. 2. Nephrotic syndrome in the context of problem #3. 3. Diabetic nephropathy. 4. Obstructive uropathy. 5. Continuous hiccups, query cause. PLAN: 1. Patient's hemodialysis will be done with less ultrafiltration. 2. The patient will benefit from physical therapy. 3. We will defer the management of hiccups to the primary team. 4. Nutritional support is strongly recommended.
--- NOTE | 2017-07-28 17:46 | EKG ---
Test Reason : Blood Pressure : / mmHG Vent. Rate : 068 BPM Atrial Rate : 068 BPM P-R Int : 144 ms QRS Dur : 114 ms QT Int : 450 ms P-R-T Axes : 086 026 061 degrees QTc Int : 478 ms Normal sinus rhythm Incomplete right bundle branch block T wave abnormality, consider anterior ischemia Prolonged QT Abnormal ECG Confirmed by SCOOTER MENCHACA, SCOT ([id number]), photograph editor TITO ALBERT ([id number]) on 07/28/2017 5:45:53 PM Referred By: Confirmed By:SCOT HELMS MD
== END 2017-07-24 18:49 | DRG 70 ==
LOC: ERS 18:33 → 2NO 20:04 → SURG A 07-22 11:35
PROVIDERS: ADMIT Internal Medicine; ATTEND Internal Medicine
PROC: 5A1D70Z Performance of Urinary Filtration, Intermittent, Less than 6 Hours Per Day (ICD-10-PCS; principal; 2017-07-21)
PROC: 5A1D70Z Performance of Urinary Filtration, Intermittent, Less than 6 Hours Per Day (ICD-10-PCS; 2017-07-24)
DX: G93.41 Metabolic encephalopathy (principal); J18.9 Pneumonia, unspecified organism; I13.2 Hypertensive heart and chronic kidney disease with heart failure and with stage 5 chronic kidney disease, or end stage renal disease; J90 Pleural effusion, not elsewhere classified; E11.21 Type 2 diabetes mellitus with diabetic nephropathy; I95.9 Hypotension, unspecified; N04.9 Nephrotic syndrome with unspecified morphologic changes; E11.22 Type 2 diabetes mellitus with diabetic chronic kidney disease; E83.42 Hypomagnesemia; N18.6 End stage renal disease; J98.11 Atelectasis; N25.81 Secondary hyperparathyroidism of renal origin; I50.32 Chronic diastolic (congestive) heart failure; Z66 Do not resuscitate; E11.51 Type 2 diabetes mellitus with diabetic peripheral angiopathy without gangrene; R00.1 Bradycardia, unspecified; R74.8 Abnormal levels of other serum enzymes; D63.1 Anemia in chronic kidney disease; E78.5 Hyperlipidemia, unspecified; Z86.73 Personal history of transient ischemic attack (TIA), and cerebral infarction without residual deficits; Z89.511 Acquired absence of right leg below knee; N40.1 Benign prostatic hyperplasia with lower urinary tract symptoms; R33.8 Other retention of urine; F17.210 Nicotine dependence, cigarettes, uncomplicated; Z79.4 Long term (current) use of insulin; N13.9 Obstructive and reflux uropathy, unspecified; R06.6 Hiccough; F41.9 Anxiety disorder, unspecified; F32.9 Major depressive disorder, single episode, unspecified; T44.7X5A Adverse effect of beta-adrenoreceptor antagonists, initial encounter; Z99.2 Dependence on renal dialysis
CPT/HCPCS: 36415; 36416; 71045; 74177; 80048; 80053; 80069; 81003; 81015; 82140; 82274; 82550; 82553; 82805; 83036; 83605; 83690; 83735; 83880; 84484; 85025; 85610; 85730; 87040; 87086; 90935; 93005; 94760; 96365; 96375; 99406; G0257; G8978-GP-CN; G8979-GP-CL; J1644; J1815; J1956; J2405; J3230; J3370; J3475; J7050

== ENCOUNTER 2017-07-28 03:01 | Inpatient (IN) | payer MEDICARE ==
[2017-07-28 04:38] LABS: ALT (SGPT) 12 U/L (8-55); AST (SGOT) 18 U/L (5-34); Albumin 2.2 g/dL (3.5-5.0); Alkaline Phosphatase 112 U/L (40-150); Anion Gap 9 mmol/L (10-20); BUN (Urea Nitrogen) 24 mg/dL (8.4-25.7); Bilirubin, Total 0.4 mg/dL (0.2-1.2); Calc. Creatinine Clearance 0 mL/min (70-130); Calcium 8.1 mg/dL (7.8-10.44); Carbon Dioxide 29 mmol/L (22-29); Chloride 102 mmol/L (98-107); Estimated GFR-MDRD 19; Glucose 128 mg/dL (70-105); Potassium 3.6 mmol/L (3.5-5.1); Protein, Total 5.2 g/dL (6.0-8.3); Sodium 136 mmol/L (136-145)
[2017-07-28 04:50] LABS: #Eosinphils 0.1 thou/uL (0.0-0.7); #Lymphocytes 1.4 thou/uL (1.20-3.40); #Monocytes 0.6 thou/uL (0.11-0.59); %Basophils 0.8 % (0.0-1.0); %Eosinophils 1.3 % (0.0-10.0); %Lymphocytes 22.8 % (21.0-51.0); %Monocytes 9.3 % (0.0-10.0); %Neutrophils 65.8 % (42.0-75.0); Hemoglobin 9.6 g/dL (14.0-18.0); Mean Corpuscular HGB CONC 34.8 g/dL (32.0-36.0); Mean Corpuscular Hemoglobin 32.5 pg (27.0-31.0); Mean Corpuscular Volume 93.4 fl (80.0-94.0); Mean Platelet Volume 12.5 fL (7.4-10.4); Platelet Count 13 thou/uL (130-400); RBC Distribution Width 11.9 % (11.5-14.5); Red Blood Cell (RBC) Count 2.94 mill/uL (4.70-6.10)
[2017-07-28] MEDS ORDERED: FLU VACC QS2017-18 36 mo. & older 0.5 ML SYRINGE IM ONE (08:15)
[2017-07-28] MEDS ORDERED: Prevnar 13-Val Conj/PF 0.5 ML SYRINGE IM ONE (08:15)
[2017-07-28] MEDS ORDERED: Acetaminophen 325 MG TAB PO PRN ×2 (08:21→13:06)
[2017-07-28] MEDS ORDERED: Ondansetron HCl/PF 4 MG/2 ML Vial IVP PRN (08:21)
[2017-07-28] MEDS ORDERED: Ondansetron ODT 4 MG TAB SL PRN (08:21)
--- NOTE | 2017-07-28 10:41 | RAD ---
PORTABLE CHEST 1 VIEW: Date: 07/28/17 Time: 0431 hours HISTORY: Cough. FINDINGS: Comparison made with exam of 07/20/17. Right-sided dialysis catheter remains in place. The heart size is normal. The lungs are well expanded without lobar consolidation, pneumothoraces, [place] pulmonary edema, or pleural effusions. IMPRESSION: No acute process. POS: [facility]
[2017-07-28 10:54] LABS: Platelet Count 20 thou/uL (130-400)
[2017-07-28 12:06] LABS: ADP Greater than 300 SEC (39-127)
[2017-07-28] MEDS ORDERED: HYDROcodone/Acetaminophen 10/325 mg Tablet PO PRN ×2 (13:06→13:20)
[2017-07-28] MEDS ORDERED: Heparin 10,000 UNITS/ 10 ML VIAL ONE (13:53)
[2017-07-28] MEDS: Epoetin (ESRD) 20,000 UNITS/ML IVP SCH (14:54)
--- NOTE | 2017-07-28 15:53 | HP ---
DATE OF ADMISSION: 07/28/2017 CHIEF COMPLAINT: Shortness of breath. HISTORY OF PRESENT ILLNESS: This is a 57-year-old white male who is a resident of a detention, has known history of end-stage renal disease, seen by Dr. Reyna. The patient has been re cently admitted to the hospital for pneumonia and was discharged home and was doing fine attending hi s regular visits to dialysis. He came into the ER today and was not breathing well, but he was satur ating normal on room air. Because this is dialysis day and thinking it could be a volume overload st ate, patient was being admitted to the hospital. The patient is noted to have very low platelets of 13. His previous platelets were normal and heparin induced thrombocytopenic antibodies were sent out and the provisional diagnosis was made at this time. The patient was seen at the hemodialysis place in the hospital and he was alert and oriented, did not appear to be in acute distress. Discussed ab out the code status and explained to patient about CPR and patient wanted to be FULL CODE. The patie nt denies having any chest pain at this time. No nausea, no vomiting, but he continues to have short ness of breath. The patient is in a very high panic mode at this time and has been moving a lot whil e doing the dialysis. He has been getting 2.4 liters of fluid out today, which is the usual amount a ccording to the nurse. PAST MEDICAL HISTORY: 1. Hypertension. 2. Type 2 diabetes mellitus. 3. Chronic diastolic congestive heart failure. 4. End-stage renal disease. PAST SURGICAL HISTORY: 1. Right hand surgery. 2. Right below-knee amputation. 3. Right chest PermCath placement with fistula creation. SOCIAL HISTORY: The patient smokes 1 pack a day. He lives in [facility] and [facility]. No history of alcohol, no history of illicit drug use. FAMILY HISTORY: Negative for any clotting or bleeding disorder. No evidence of any immune dysfuncti on. ALLERGIES: No known drug allergies. HOME MEDICATIONS: Hydralazine 25 mg p.o. t.i.d., nifedipine 60 mg p.o. daily, metoprolol 25 mg p.o. b.i.d., aspirin 81 mg p.o. daily, atorvastatin 10 mg p.o. at bedtime, insulin scale with NovoLog, Lev bridget 8 units subcu in the evening. REVIEW OF SYSTEMS: All 12 systems were reviewed with the patient thoroughly and found to be negative except the ones noted in HPI. The following complete review of systems was negative, unless otherwi se mentioned in the HPI or below: Constitutional: Weight loss or gain, sense of well-being, ability to conduct usual activities, exerc ise tolerance. Skin/Breast: Rash, itching, changes in hair growth or loss, nail changes, breast lumps, tenderness, swelling, nipple discharge. Eyes: Vision, double vision, tearing, blind spots, pain. ENT/Mouth: Headaches (location, time of onset, duration, precipitating factors), vertigo, lightheade dness, injury. Vision, double vision, tearing, blind spots, pain, nose bleeding, colds, obstruction, discharge, dental difficulties, gingival bleeding, dentures, neck stiffness, pain, tenderness, masses in thyroid or other areas Cardiovascular: Precordial pain, substernal distress, palpitations, syncope, dyspnea on exertion, or thopnea, nocturnal paroxysmal dyspnea, edema, cyanosis, hypertension, heart murmurs, varicosities, ph lebitis, claudication. Respiratory: Pain, shortness of breath, wheezing, stridor, cough, hemoptysis, fever or night sweats Gastrointestinal: Poor appetite, dysphagia, indigestion, abdominal pain, heartburn, eructation, naus ea, vomiting, hematemesis, jaundice, constipation, or diarrhea, abnormal stools (erika-colored, tarry, bloody, greasy, foul smelling), flatulence, hemorrhoids, recent changes in bowel habits. Genitourinary: Urgency, frequency, dysuria, nocturia, hematuria, polyuria, oliguria, unusual (or sahil nge in) color of urine, stones, hesitancy, change in size of stream, dribbling, acute retention or in continence, libido, potency. Musculoskeletal: Pain, swelling, redness or heat of muscles or joints, limitation, of motion, muscul ar weakness, atrophy, cramps. Neurologic/Psychiatric: Convulsions, paralyses, tremor, incoordination, paraesthesias, difficulties with memory of speech, sensory or motor disturbances, or muscular coordination (ataxia, tremor), emot ional problems, anxiety, depression, previous psychiatric care, unusual perceptions, hallucinations. Allergy/Immunologic: Skin rash, anemia, bleeding tendency, polydipsia, polyuria, intolerance to heat or cold. PHYSICAL EXAMINATION: VITAL SIGNS: Blood pressure 133/57, heart rate is 61, respiration rate 18, saturation 98%. GENERAL: The patient is moderately built, moderately nourished, does not appear to be in acute distr ess at this time, alert, oriented x3. HEENT: Atraumatic, normocephalic. PERRLA. Extraocular muscles were intact. Oral mucosa is pink an d moist. CARDIOVASCULAR: S1 and S2 normal. No murmurs, rubs or gallops. LUNGS: Bilateral air entry was equal. No wheezing, no crackles. ABDOMEN: Soft and nontender. No guarding or rebound tenderness. Bowel sounds normal. MUSCULOSKELETAL: No calf tenderness. No pedal edema. EXTREMITIES: No joint tenderness, no joint swelling. SKIN: No cyanosis, no erythema, no rash, no pallor. ORTHOTIST OR PROSTHETIST: Cranial nerve examination II-XII intact. No focal deficits were noted. NECK: No thyromegaly. No JVD. PSYCHIATRIC: No signs of suicidal ideation. Patient has evidence of panic disorder with high level of anxiety at this time. LABORATORY DATA AND IMAGING DATA: WBC 6.8, hemoglobin is 9.6, hematocrit is 27.5, platelets are 13. Sodium 136, potassium 3.6, chloride 102, bicarbonate is 29, BUN is 24, creatinine is 3.32, GFR is 19 . Blood sugar is 128. Chest x-ray was done today showing no evidence of any bilateral pleural effus ions. No evidence of any pneumonia was noted. ASSESSMENT: 1. Acute volume overload state with a feeling of dyspnea. 2. Acute severe thrombocytopenia. 3. Type 2 diabetes mellitus. 4. Hypertension. 5. Chronic congestive heart failure, no evidence of any exacerbation. 6. End-stage renal disease on hemodialysis. PLAN: 1. Plan is to closely monitor this patient and we will start the patient on platelet transfusion at this time as patient has low platelet count and high risk for bleeding. I did not notice any externa l bleeding at this time. No bruises were noted. No petechial rash was noted. The patient is alert and oriented. 2. Patient has evidence of volume overload. We will continue with hemodialysis at this time. We wi ll closely monitor and follow with Nephrology recommendations. 3. The patient has history of congestive heart failure, no evidence of any congestive heart failure exacerbation noted. 4. History of type 2 diabetes mellitus, well-controlled. We will restart the patient's home medicat ions. 5. We will plan to keep the blood sugars in the 140-180. 6. DVT prophylaxis, SCDs. I spent 70 minutes with this patient.
[2017-07-28] MEDS: Calcium Acetate 667 MG CAP PO SCH (16:47)
[2017-07-28] MEDS: Docusate 100 MG CAP PO SCH (20:32)
[2017-07-28] MEDS: Famotidine/PF 20 mg/2ml Vial SLOW IVP SCH (20:32)
[2017-07-28] MEDS: hydrALAZINE 20 MG/ML VIAL SLOW IVP PRN (22:18)
[2017-07-29 05:27] LABS: #Basophils 0.1 thou/uL (0.0-0.2); #Eosinphils 0.2 thou/uL (0.0-0.7); #Lymphocytes 1.8 thou/uL (1.20-3.40); #Monocytes 0.5 thou/uL (0.11-0.59); #Neutrophils 3.6 thou/uL (1.40-6.50); %Basophils 0.8 % (0.0-1.0); %Eosinophils 2.9 % (0.0-10.0); %Lymphocytes 29.3 % (21.0-51.0); %Monocytes 8.2 % (0.0-10.0); %Neutrophils 58.8 % (42.0-75.0); Hemoglobin 9.1 g/dL (14.0-18.0); Mean Corpuscular HGB CONC 34.5 g/dL (32.0-36.0); Mean Corpuscular Hemoglobin 32.6 pg (27.0-31.0); Mean Corpuscular Volume 94.4 fl (80.0-94.0); Mean Platelet Volume 9.9 fL (7.4-10.4); Platelet Count 131 thou/uL (130-400); Red Blood Cell (RBC) Count 2.81 mill/uL (4.70-6.10); White Blood Cell (WBC) Count 6.2 thou/uL (4.8-10.8)
[2017-07-29 05:30] LABS: Anion Gap 6 mmol/L (10-20); BUN (Urea Nitrogen) 13 mg/dL (8.4-25.7); Calc. Creatinine Clearance 33 mL/min (70-130); Calcium 8.1 mg/dL (7.8-10.44); Carbon Dioxide 31 mmol/L (22-29); Chloride 102 mmol/L (98-107); Estimated GFR-MDRD 27; Glucose 96 mg/dL (70-105); Potassium 3.6 mmol/L (3.5-5.1); Sodium 135 mmol/L (136-145)
[2017-07-29] MEDS: Famotidine/PF 20 mg/2ml Vial SLOW IVP SCH ×2 (09:54→19:33)
[2017-07-29] MEDS: Atorvastatin Calcium 10 MG TAB PO SCH (09:54)
[2017-07-29] MEDS: Folic Acid/Vit B Comp W-C PO SCH (09:54)
[2017-07-29] MEDS: Docusate 100 MG CAP PO SCH ×2 (09:54→19:33)
[2017-07-29] MEDS: Ferrous Sulfate 325 MG TAB PO SCH (09:54)
[2017-07-29] MEDS: Calcium Acetate 667 MG CAP PO SCH ×3 (09:55→17:18)
--- NOTE | 2017-07-29 14:58 | PDOC.PN ---
- Subjective Encounter Start Date: 07/29/17 Encounter Start Time: 11:00 Patient is seen today, alert and oriented. No other Concern noted. He still feels he is congested and coughing out phlegm, he is knonw smoker, never digaosed with Chronic bronchitis/ COPD. - Objective Resuscitation Status: Resuscitation Status FULL:Full Resuscitation MAR Reviewed: Yes Vital Signs & Weight: Vital Signs (12 hours) Temp Pulse Resp BP Pulse Ox 07/29/17 12:17 98.4 F 62 16 155/78 H 100 07/29/17 09:00 98.2 F 58 L 16 95 07/29/17 08:34 98.2 F 58 L 16 146/70 H 95 07/29/17 04:58 98.3 F 64 20 150/68 H 97 Weight Weight 154 lb 6.4 oz Most Recent Monitor Data Heart Rate from ECG 66 NIBP 133/57 Respiration from ECG 20 I&O: 07/28/17 07/29/17 07/30/17 06:59 06:59 06:59 Intake Total 730 Output Total 850 Balance -120 Result Diagrams: 07/29/17 04:12 07/29/17 04:12 Radiology Reviewed by me: Yes Phys Exam - Physical Examination HEENT: PERRLA, moist MMs Neck: no nodes, no JVD Respiratory: wheezing present Cardiovascular: RRR, no significant murmur Gastrointestinal: soft, non-tender Musculoskeletal: no edema, pulses present Neurological: non-focal, normal sensation Psychiatric: normal affect, A&O x 3 Dx/Plan (1) Chronic bronchitis with acute exacerbation Code(s): J20.9 - ACUTE BRONCHITIS, UNSPECIFIED; J42 - UNSPECIFIED CHRONIC BRONCHITIS Status: Acute Comment: WIll continue with NB treatments PRN, he is stbale, Will continue with Mucinex and IS. No steroids at this time. (2) Chronic diastolic heart failure Code(s): I50.32 - CHRONIC DIASTOLIC (CONGESTIVE) HEART FAILURE Status: Acute Comment: Will continue with HD, He presented with elevated BNP, Will start him on Lisinopril for mildly eelvated Bp, h/o Echo in 2015 showed good EF, will repeat Echo and see if any wall motion abnormality and reason for his ABREU. Cannot do BB due to low HR. (3) Hypertension Code(s): I10 - ESSENTIAL (PRIMARY) HYPERTENSION Status: Acute Comment: Poorly controlled for ESRD, will start Lisinopril and keep Bp <130/80 (4) Anemia of renal disease Code(s): D63.1 - ANEMIA IN CHRONIC KIDNEY DISEASE Status: Chronic Comment: Likely from CKD, pt on epocrit and iron meds. (5) ESRD (end stage renal disease) on dialysis Code(s): N18.6 - END STAGE RENAL DISEASE; Z99.2 - DEPENDENCE ON RENAL DIALYSIS Status: Chronic Comment: On scheduled with his HD team. HD tomorrow. - Plan cont current plan of care, durham catheter, PT/OT, transition social worker, speech therapy, respiratory therapy, incentive spirometry, DVT proph w/lovenox * . - Discharge Day Encounter end time: 11:30 Review of Systems - Review of Systems Constitutional: weakness, malaise. negative: fever, chills, sweats, other Eyes: negative: Pain, Vision Change, Conjunctivae Inflammation, Eyelid Inflammation, Redness, Other ENT: negative: Ear Pain, Ear Discharge, Nose Pain, Nose Discharge, Nose Congestion, Mouth Pain, Mouth Swelling, Throat Pain, Throat Swelling, Other Respiratory: Cough, Shortness of Breath, SOB with Excertion Cardiovascular: negative: chest pain, palpitations, orthopnea, paroxysmal nocturnal dyspnea, edema, light headedness, other Gastrointestinal: negative: Nausea, Vomiting, Abdominal Pain, Diarrhea, Constipation, Melena, Hematochezia, Other Genitourinary: negative: Dysuria, Frequency, Incontinence, Hematuria, Retention , Other Musculoskeletal: negative: Neck Pain, Shoulder Pain, Arm Pain, Back Pain, Hand Pain, Leg Pain, Foot Pain, Other Skin: negative: Rash, Lesions, Giles, Bruising, Other - Medications/Allergies Allergies/Adverse Reactions: Allergies Allergy/AdvReac Type Severity Reaction Status Date / Time No Known Allergies Allergy Verified 06/24/17 15:20 Medications: Current Medications Acetaminophen (Tylenol) 650 mg PO Q4H PRN PRN Reason: Mild Pain (1-3) Hydrocodone Bitart/Acetaminophen ([place] 10/325) 1 tab PO Q6H PRN PRN Reason: Moderate Pain (4-6) Hydrocodone Bitart/Acetaminophen ([place] 10/325) 2 tab PO Q6H PRN PRN Reason: Moderate Pain (4-6) Atorvastatin Calcium (Lipitor) 10 mg PO DAILY [facility] Last Admin: 07/29/17 09:54 Dose: 10 mg Calcium Acetate (Phoslo) 1,334 mg PO TID-[facility] Last Admin: 07/29/17 12:51 Dose: 1,334 mg Docusate Sodium (Colace) 100 mg PO BID [facility] Last Admin: 07/29/17 09:54 Dose: 100 mg Epoetin Jesus (Procrit) 5,000 units IVP TuThSa@1400 [facility] Last Admin: 07/28/17 14:54 Dose: 5,000 units Famotidine (Pepcid) 20 mg SLOW IVP Q12HR [facility] Last Admin: 07/29/17 09:54 Dose: 20 mg Ferrous Sulfate (Feosol) 325 mg PO QAM-[facility] Last Admin: 07/29/17 09:54 Dose: 325 mg Hydralazine HCl (Apresoline) 10 mg SLOW IVP Q4H PRN PRN Reason: SBP > 180 Last Admin: 07/28/17 22:18 Dose: 10 mg Vitamin B Complex/Vit C/Folic Acid (Nephro-Shalini Tablet) 1 tab PO DAILY [facility] Last Admin: 07/29/17 09:54 Dose: 1 tab
[2017-07-30] MEDS: Famotidine/PF 20 mg/2ml Vial SLOW IVP SCH ×2 (07:54→20:02)
[2017-07-30] MEDS: Calcium Acetate 667 MG CAP PO SCH ×3 (07:54→16:21)
[2017-07-30] MEDS: Ferrous Sulfate 325 MG TAB PO SCH (07:55)
[2017-07-30] MEDS: Folic Acid/Vit B Comp W-C PO SCH (07:55)
[2017-07-30] MEDS: Lisinopril 5 MG TAB PO SCH ×2 (07:55→07:56)
[2017-07-30] MEDS: Docusate 100 MG CAP PO SCH ×2 (07:57→20:02)
[2017-07-30] MEDS: Atorvastatin Calcium 10 MG TAB PO SCH (07:57)
--- NOTE | 2017-07-30 13:57 | PDOC.PN ---
- Subjective Encounter Start Date: 07/30/17 Encounter Start Time: 10:00 Patient is seen today, persistantly c/o SOb and Cough, he is putting on oxygen saying he feels better with it, his Sats are normal withought oxygen. No chest pain, pt is a knonw smoker. - Objective Resuscitation Status: Resuscitation Status FULL:Full Resuscitation MAR Reviewed: Yes Vital Signs & Weight: Vital Signs (12 hours) Temp Pulse Resp BP BP Pulse Ox 07/30/17 11:54 98.7 F 57 L 16 170/70 H 96 07/30/17 11:10 98.6 F 58 L 16 169/73 H 94 L 07/30/17 08:26 98.7 F 60 18 191/65 H 94 L 07/30/17 08:00 98.7 F 60 18 07/30/17 07:56 60 191/65 H 07/30/17 07:55 60 191/65 H Weight Weight 154 lb 6.4 oz Most Recent Monitor Data Heart Rate from ECG 66 NIBP 133/57 Respiration from ECG 20 I&O: 07/29/17 07/30/17 07/31/17 06:59 06:59 06:59 Intake Total 730 1170 Output Total 850 575 Balance -120 595 Result Diagrams: 07/29/17 04:12 07/29/17 04:12 Additional Labs: Accuchecks 07/30/17 07/30/17 11:01 10:38 POC Glucose 371 H 287 H Phys Exam - Physical Examination HEENT: PERRLA, moist MMs Neck: no nodes Respiratory: no wheezing, no rales Cardiovascular: RRR, no significant murmur Gastrointestinal: soft, non-tender Musculoskeletal: no edema, pulses present Neurological: non-focal, normal sensation Lymphatic: no nodes Psychiatric: normal affect, A&O x 3 Dx/Plan (1) Chronic bronchitis with acute exacerbation Code(s): J20.9 - ACUTE BRONCHITIS, UNSPECIFIED; J42 - UNSPECIFIED CHRONIC BRONCHITIS Status: Acute Comment: WIll continue with NB treatments PRN, he is stbale, Will continue with Mucinex and IS. No steroids at this time. (2) Chronic diastolic heart failure Code(s): I50.32 - CHRONIC DIASTOLIC (CONGESTIVE) HEART FAILURE Status: Acute Comment: Will continue with HD, He presented with elevated BNP, Will start him on Lisinopril for mildly eelvated Bp, h/o Echo in 2016 showed good EF, will repeat Echo and see if any wall motion abnormality and reason for his ABREU. Cannot do BB due to low HR. (3) Hypertension Code(s): I10 - ESSENTIAL (PRIMARY) HYPERTENSION Status: Acute Comment: Poorly controlled for ESRD, will start Lisinopril and keep Bp <130/80 (4) Anemia of renal disease Code(s): D63.1 - ANEMIA IN CHRONIC KIDNEY DISEASE Status: Chronic Comment: Likely from CKD, pt on epocrit and iron meds. (5) ESRD (end stage renal disease) on dialysis Code(s): N18.6 - END STAGE RENAL DISEASE; Z99.2 - DEPENDENCE ON RENAL DIALYSIS Status: Chronic Comment: On scheduled with his HD team. HD tomorrow. (6) ABREU (dyspnea on exertion) Code(s): R06.09 - OTHER FORMS OF DYSPNEA Status: Acute Comment: Will do Echo look for any Cardiac ischemia or heart failure, pt is known smoker, c/o persistant SOB, Lungs are clear. - Plan cont current plan of care, PT/OT, vp digital marketing social media and crm, respiratory therapy, incentive spirometry, DVT proph w/heparin * . - Discharge Day Encounter end time: 10:35 Review of Systems - Review of Systems Constitutional: weakness, malaise Eyes: negative: Pain, Vision Change, Conjunctivae Inflammation, Eyelid Inflammation, Redness, Other ENT: negative: Ear Pain, Ear Discharge, Nose Pain, Nose Discharge, Nose Congestion, Mouth Pain, Mouth Swelling, Throat Pain, Throat Swelling, Other Respiratory: Cough, Shortness of Breath, SOB with Excertion Cardiovascular: negative: chest pain, palpitations, orthopnea, paroxysmal nocturnal dyspnea, edema, light headedness, other Gastrointestinal: negative: Nausea, Vomiting, Abdominal Pain, Diarrhea, Constipation, Melena, Hematochezia, Other Genitourinary: negative: Dysuria, Frequency, Incontinence, Hematuria, Retention , Other Musculoskeletal: negative: Neck Pain, Shoulder Pain, Arm Pain, Back Pain, Hand Pain, Leg Pain, Foot Pain, Other Skin: negative: Rash, Lesions, Giles, Bruising, Other - Medications/Allergies Allergies/Adverse Reactions: Allergies Allergy/AdvReac Type Severity Reaction Status Date / Time No Known Allergies Allergy Verified 06/24/17 15:20 Medications: Current Medications Acetaminophen (Tylenol) 650 mg PO Q4H PRN PRN Reason: Mild Pain (1-3) Hydrocodone Bitart/Acetaminophen ([place] 10/325) 1 tab PO Q6H PRN PRN Reason: Moderate Pain (4-6) Hydrocodone Bitart/Acetaminophen ([place] 10/325) 2 tab PO Q6H PRN PRN Reason: Moderate Pain (4-6) Atorvastatin Calcium (Lipitor) 10 mg PO DAILY [facility] Last Admin: 07/30/17 07:57 Dose: 10 mg Calcium Acetate (Phoslo) 1,334 mg PO TID-[facility] Last Admin: 07/30/17 11:09 Dose: 1,334 mg Docusate Sodium (Colace) 100 mg PO BID [facility] Last Admin: 07/30/17 07:57 Dose: 100 mg Epoetin Jesus (Procrit) 5,000 units IVP TuThSa@1400 [facility] Last Admin: 07/28/17 14:54 Dose: 5,000 units Famotidine (Pepcid) 20 mg SLOW IVP Q12HR [facility] Last Admin: 07/30/17 07:54 Dose: 20 mg Ferrous Sulfate (Feosol) 325 mg PO QAM-[facility] Last Admin: 07/30/17 07:55 Dose: 325 mg Hydralazine HCl (Apresoline) 10 mg SLOW IVP Q4H PRN PRN Reason: SBP > 180 Last Admin: 07/28/17 22:18 Dose: 10 mg Lisinopril (Zestril) 10 mg PO DAILY [facility] Vitamin B Complex/Vit C/Folic Acid (Nephro-Shalini Tablet) 1 tab PO DAILY [facility] Last Admin: 07/30/17 07:55 Dose: 1 tab
[2017-07-30] MEDS: hydrALAZINE 20 MG/ML VIAL SLOW IVP PRN (20:02)
--- NOTE | 2017-07-31 06:55 | PRG ---
DATE OF SERVICE: 07/30/2017 SUBJECTIVE: The patient was seen and examined, complaining of some shortness of breath otherwise unr emarkable. Hemodynamically stable. PHYSICAL EXAMINATION: VITAL SIGNS: Stable, afebrile with temperature 98.7, pulse 57, respiratory rate 16, blood pressure 1 69/73, O2 sat 94%. HEENT: Unremarkable with moist oral mucosa. Neck is supple. No conjunctival injection or icterus. CARDIOVASCULAR: First and second heart sounds were heard. RESPIRATORY: Clear to auscultation. DIGESTIVE: Revealed a benign abdomen with positive bowel sounds. EXTREMITIES: No peripheral edema. SKIN: No new gross rash. LYMPHATICS: No peripheral lymphadenopathy. IMPRESSION: 1. End-stage renal disease, hemodialysis dependent. 2. Hypertension. 3. Anemia of chronic kidney disease. 4. Respiratory distress in the context of hypervolemia seems to improve status post ultrafiltration. PLAN: The patient to continue with scheduled hemodialysis of Sunday, , and Sunday.
[2017-07-31] MEDS: Calcium Acetate 667 MG CAP PO SCH ×3 (07:19→16:17)
[2017-07-31 08:04] LABS: HBSAg Index 0.17 S/CO (0-0.99); Hep B Surf Ag Non-Reactive S/CO (NonReactive)
[2017-07-31] MEDS ORDERED: chlorproMAZINE HCl 25 MG TAB PO PRN (09:08)
[2017-07-31] MEDS ORDERED: chlorproMAZINE HCl 25 MG TAB PO SCH (09:15)
--- NOTE | 2017-07-31 09:29 | PRG ---
DATE OF SERVICE: 07/31/2017 The patient was seen and examined today at dialysis, still complaining bitterly about his intractable hiccups. PHYSICAL EXAMINATION: VITAL SIGNS: The patient otherwise noted with the following vital signs. Afebrile with temperature 98, pulse 64, respiratory rate 18, O2 sat 96% with blood pressure 122/69. HEENT: Unremarkable. CARDIOVASCULAR: First and second heart sounds were heard. RESPIRATORY: Clear to auscultation. DIGESTIVE: Revealed a benign abdomen. EXTREMITIES: No peripheral edema. SKIN: No new gross rash. LYMPHATICS: No peripheral lymphadenopathy. IMPRESSION: 1. End-stage renal disease on hemodialysis. 2. Nephrotic syndrome with significant proteinuria. 3. Diabetic nephropathy. 4. Intractable hiccups, query cause. PLAN: 1. The patient to continue with hemodialysis as per current schedule. 2. Renally dose all medications per low GFR. 3. I will attempt therapeutic trial with Thorazine to address these intractable hiccups. 4. Further management to be dependent on the clinical course.
[2017-07-31] MEDS: Docusate 100 MG CAP PO SCH ×2 (11:59→20:21)
[2017-07-31] MEDS: Folic Acid/Vit B Comp W-C PO SCH (11:59)
[2017-07-31] MEDS: Ferrous Sulfate 325 MG TAB PO SCH (11:59)
[2017-07-31] MEDS: Atorvastatin Calcium 10 MG TAB PO SCH (11:59)
[2017-07-31] MEDS: Lisinopril 10 MG TAB PO SCH (12:00)
[2017-07-31] MEDS: Famotidine/PF 20 mg/2ml Vial SLOW IVP SCH (12:03)
[2017-07-31] MEDS: Epoetin (ESRD) 20,000 UNITS/ML IVP SCH (14:51)
[2017-07-31] MEDS ORDERED: Famotidine/PF 20 mg/2ml Vial SLOW IVP SCH (21:00)
--- NOTE | 2017-08-01 08:12 | PDOC.PN ---
- Subjective Encounter Start Date: 07/31/17 Encounter Start Time: 13:00 Subjective: nsg notes rev, lory ovn, no new c/o family @ bedside - Objective Resuscitation Status: Resuscitation Status FULL:Full Resuscitation Vital Signs & Weight: Vital Signs (12 hours) Temp Pulse Resp 08/01/17 07:19 98.0 F 69 16 Weight Weight 154 lb 6.4 oz Most Recent Monitor Data Heart Rate from ECG 66 NIBP 133/57 Respiration from ECG 20 I&O: 07/31/17 08/01/17 08/02/17 06:59 06:59 06:59 Output Total 200 2450 Balance -200 -2450 Result Diagrams: 07/29/17 04:12 07/29/17 04:12 Additional Labs: Accuchecks 08/01/17 07/31/17 07/31/17 04:57 19:58 16:55 POC Glucose 121 H 222 H 187 H 07/31/17 12:11 POC Glucose 110 Phys Exam - Physical Examination Constitutional: NAD HEENT: PERRLA, sclera anicteric slightly dry mm Respiratory: no wheezing, no rales, no rhonchi, clear to auscultation bilateral Cardiovascular: RRR, no significant murmur, no rub Gastrointestinal: soft, no distention, positive bowel sounds Musculoskeletal: no edema, pulses present Neurological: moves all 4 limbs Dx/Plan - Plan * COPD exacerbation * wean O2 supplementation as tolerated * transition medications to oral regimen ESRD * apprec renal c/s * cont with HD as per nephrology concern for CHF and volume overload * pending ECHO results * volume removal with HD diet: renal, cardiac activity: as margie dvt ppx Review of Systems - Medications/Allergies Allergies/Adverse Reactions: Allergies Allergy/AdvReac Type Severity Reaction Status Date / Time No Known Allergies Allergy Verified 06/24/17 15:20 Medications: Current Medications Acetaminophen (Tylenol) 650 mg PO Q4H PRN PRN Reason: Mild Pain (1-3) Hydrocodone Bitart/Acetaminophen ([place] 10/325) 1 tab PO Q6H PRN PRN Reason: Moderate Pain (4-6) Hydrocodone Bitart/Acetaminophen ([place] 10/325) 2 tab PO Q6H PRN PRN Reason: Moderate Pain (4-6) Atorvastatin Calcium (Lipitor) 10 mg PO DAILY [facility] Last Admin: 07/31/17 11:59 Dose: 10 mg Calcium Acetate (Phoslo) 1,334 mg PO TID-[facility] Last Admin: 07/31/17 16:17 Dose: 1,334 mg Chlorpromazine HCl (Thorazine) 25 mg PO Q4H PRN PRN Reason: Restlessness Docusate Sodium (Colace) 100 mg PO BID [facility] Last Admin: 07/31/17 20:21 Dose: 100 mg Epoetin Jesus (Procrit) 5,000 units IVP TuThSa@1400 [facility] Last Admin: 07/31/17 14:51 Dose: 5,000 units Famotidine (Pepcid) 20 mg SLOW IVP Q24HR [facility] Last Admin: 07/31/17 20:21 Dose: 20 mg Ferrous Sulfate (Feosol) 325 mg PO QAM-[facility] Last Admin: 07/31/17 11:59 Dose: 325 mg Hydralazine HCl (Apresoline) 10 mg SLOW IVP Q4H PRN PRN Reason: SBP > 180 Last Admin: 07/30/17 20:02 Dose: 10 mg Lisinopril (Zestril) 10 mg PO DAILY [facility] Last Admin: 07/31/17 12:00 Dose: 10 mg Vitamin B Complex/Vit C/Folic Acid (Nephro-Shalini Tablet) 1 tab PO DAILY [facility] Last Admin: 07/31/17 11:59 Dose: 1 tab
[2017-08-01 09:15] LABS: #Basophils 0.1 thou/uL (0.0-0.2); #Eosinphils 0.1 thou/uL (0.0-0.7); #Lymphocytes 2.6 thou/uL (1.20-3.40); #Monocytes 0.6 thou/uL (0.11-0.59); #Neutrophils 5.4 thou/uL (1.40-6.50); %Lymphocytes 29.3 % (21.0-51.0); %Monocytes 6.3 % (0.0-10.0); %Neutrophils 62.3 % (42.0-75.0); Hemoglobin 9.7 g/dL (14.0-18.0); Mean Corpuscular HGB CONC 34.2 g/dL (32.0-36.0); Mean Corpuscular Volume 93.6 fl (80.0-94.0); Mean Platelet Volume 7.7 fL (7.4-10.4); Platelet Count 280 thou/uL (130-400); RBC Distribution Width 12.2 % (11.5-14.5); Red Blood Cell (RBC) Count 3.03 mill/uL (4.70-6.10); White Blood Cell (WBC) Count 8.7 thou/uL (4.8-10.8)
[2017-08-01 09:26] LABS: Anion Gap 8 mmol/L (10-20); BUN (Urea Nitrogen) 19 mg/dL (8.4-25.7); Calc. Creatinine Clearance 28 mL/min (70-130); Carbon Dioxide 30 mmol/L (22-29); Chloride 100 mmol/L (98-107); Estimated GFR-MDRD 23; Glucose 101 mg/dL (70-105); Potassium 3.7 mmol/L (3.5-5.1); Sodium 134 mmol/L (136-145)
[2017-08-01] MEDS: Lisinopril 10 MG TAB PO SCH (09:47)
[2017-08-01] MEDS: Atorvastatin Calcium 10 MG TAB PO SCH (09:47)
[2017-08-01] MEDS: Ferrous Sulfate 325 MG TAB PO SCH (09:47)
[2017-08-01] MEDS: Folic Acid/Vit B Comp W-C PO SCH (09:47)
[2017-08-01] MEDS: Calcium Acetate 667 MG CAP PO SCH ×2 (09:47→11:48)
[2017-08-01] MEDS: Docusate 100 MG CAP PO SCH (09:47)
[2017-08-01 14:25] VITALS: BP 123/68; TEMP 98.1
[2017-08-01 21:09] LABS: Heparin-Induced Ab (HITA) Negative (.)
--- NOTE | 2017-08-01 21:33 | PRG ---
DATE OF SERVICE: 08/01/2017 SUBJECTIVE: The patient is seen and examined, seems to be doing much better. OBJECTIVE: HEENT: Unremarkable. CARDIOVASCULAR: First and second heart sounds were heard. RESPIRATORY: Clear to auscultation. DIGESTIVE SYSTEM: Revealed a benign abdomen with positive bowel sounds. Hemodynamically stable. IMPRESSION: 1. End-stage renal disease, on hemodialysis. 2. hiccups, on Thorazine. PLAN: 1. From the renal standpoint, the patient can continue hemodialysis as per schedule. 2. Discharge planning will be up to the primary team.
== END 2017-08-01 16:13 | DRG 813 ==
LOC: ERS 03:01 → T4-A 07:53
PROVIDERS: ADMIT Internal Medicine; ATTEND Internal Medicine
PROC: 5A1D70Z Performance of Urinary Filtration, Intermittent, Less than 6 Hours Per Day (ICD-10-PCS; principal; 2017-07-28)
PROC: 30233R1 Transfusion of Nonautologous Platelets into Peripheral Vein, Percutaneous Approach (ICD-10-PCS; 2017-07-28)
DX: D69.59 Other secondary thrombocytopenia (principal); I13.2 Hypertensive heart and chronic kidney disease with heart failure and with stage 5 chronic kidney disease, or end stage renal disease; E11.21 Type 2 diabetes mellitus with diabetic nephropathy; N18.6 End stage renal disease; E87.79 Other fluid overload; J44.1 Chronic obstructive pulmonary disease with (acute) exacerbation; I50.32 Chronic diastolic (congestive) heart failure; N04.9 Nephrotic syndrome with unspecified morphologic changes; E11.22 Type 2 diabetes mellitus with diabetic chronic kidney disease; I50.84 End stage heart failure; Z99.2 Dependence on renal dialysis; D63.1 Anemia in chronic kidney disease; F17.210 Nicotine dependence, cigarettes, uncomplicated; Z89.511 Acquired absence of right leg below knee; F41.0 Panic disorder [episodic paroxysmal anxiety]; R06.6 Hiccough
CPT/HCPCS: 36415; 36416; 36430; 71045; 80048; 80053; 82542; 83880; 85025; 85576; 86850; 86900; 86901; 87340; 90935; 93306; G0257; G8981-GP-CL; G8982-GP-CJ; G8987-GO-CM; G8988-GO-CK; J0360; J1644; P9035; Q0161; Q4081; S0028

== ENCOUNTER 2017-09-14 05:30 | Day surgery (SDC) | payer MEDICARE ==
--- NOTE | 2017-09-12 14:52 | HP ---
HISTORY OF PRESENT ILLNESS: The patient is a 57-year-old male patient [facility] residen t presents to the office today for followup of dialysis access. He dialyzes [facility] Sunday, , and Sunday. On 06/29/2017, patient underwent placement of right IJ cuffed tunnel dialysis catheter, right arm primary fistula exploring the cephalic vein at the wrist, finding it inadequate and expiration of the proximal right forearm noting excellent size, the brachial arter y bifurcation must be higher as it was not present at this level. Perforating branch antecubital vei n to brachial artery, arterial inflow with outflow basilic vein. Patient was noted at that time to n eed a basilic vein transposition fistula in the future this is the first time, he is followed up with me. Plan is to perform this under regional anesthesia or general per Anesthesia choice. The patien t is followed by Dr. Reyna. ALLERGIES: None. SOCIAL HISTORY: Tobacco one pack per day. ALCOHOL: None. MEDICATIONS: Insulin 8 units at bedtime, Lasix, aspirin 81 mg a day, atorvastatin 10 mg a day, Lopre ssor 25 b.i.d. 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 PAST MEDICAL HISTORY: End-stage renal disease, never has had a colonoscopy. Echocardiogram 10/2016, 55% to 60% EF, diastolic dysfunction. Carotid Doppler study on 10/19/2016. No significant stenosis . REVIEW OF SYSTEMS: Ten point noncontributory. PHYSICAL EXAMINATION: VITAL SIGNS: 5 feet 6, 130/63, 64 heart rate, 99.3 degrees. He arrives in my office in a wheelchair . HEENT: Unremarkable. LUNGS: Clear to auscultation. CARDIAC: Regular rate and rhythm without murmur or gallop. ABDOMEN: Soft, nontender. Palpable thrill, audible bruit, right upper arm fistula, good right hand function. ASSESSMENT AND PLAN: In need of basilic vein transposition fistula, right arm, we will plan in the n ext 2 weeks. Risk of infection, bleeding, reoperation explained and he consents. He is a resident o f [facility]. Note, FULL CODE.
[2017-09-13 18:18] VITALS: BMI 25.2
[2017-09-14] MEDS ORDERED: CEFAZOLIN/Water 2 GM/20 ML SYRINGE ONE (06:21)
[2017-09-14] MEDS ORDERED: Fentanyl 100 MCG/2 ML VIAL ONE ×4 (06:27→11:14)
[2017-09-14] MEDS ORDERED: Propofol 500 MG/50 ML VIAL ONE (06:27)
[2017-09-14] MEDS ORDERED: Protamine Sulfate 50 MG/5 ML VIAL ONE (06:32)
[2017-09-14] MEDS ORDERED: Bupivacaine HCl 0.5%/Epinephrine 1:200,000/PF 30 ml Vial ONE (06:32)
[2017-09-14] MEDS ORDERED: Lidocaine 2% w/Epinephrine 1:200K 20 ML VIAL ONE (06:32)
[2017-09-14] MEDS ORDERED: Heparin 5,000 UNITS/ML VIAL ONE (06:32)
[2017-09-14] MEDS ORDERED: Midazolam HCl 2 mg/2 ml Vial ONE (06:47)
[2017-09-14] MEDS ORDERED: Ondansetron HCl/PF 4 MG/2 ML Vial ONE ×2 (06:59→15:22)
[2017-09-14] MEDS ORDERED: Bupivacaine/Epinephrine 0.25% 30 ML VIAL ONE (07:25)
[2017-09-14] MEDS ORDERED: Heparin 10,000 UNITS/ 10 ML VIAL ONE ×4 (07:53→15:22)
[2017-09-14 08:04] LABS: #Basophils 0.1 thou/uL (0.0-0.2); #Eosinphils 0.6 thou/uL (0.0-0.7); #Lymphocytes 1.7 thou/uL (1.20-3.40); #Monocytes 0.3 thou/uL (0.11-0.59); #Neutrophils 3.6 thou/uL (1.40-6.50); %Basophils 1.1 % (0.0-1.0); %Eosinophils 9.2 % (0.0-10.0); %Lymphocytes 27.3 % (21.0-51.0); %Monocytes 4.9 % (0.0-10.0); %Neutrophils 57.6 % (42.0-75.0); Hemoglobin 8.3 g/dL (14.0-18.0); Mean Corpuscular Hemoglobin 32.8 pg (27.0-31.0); Mean Corpuscular Volume 96.4 fl (80.0-94.0); Mean Platelet Volume 7.1 fL (7.4-10.4); Platelet Count 263 thou/uL (130-400); RBC Distribution Width 13.7 % (11.5-14.5); Red Blood Cell (RBC) Count 2.53 mill/uL (4.70-6.10); White Blood Cell (WBC) Count 6.2 thou/uL (4.8-10.8)
[2017-09-14 08:23] LABS: Anion Gap 8 mmol/L (10-20); BUN (Urea Nitrogen) 30 mg/dL (8.4-25.7); Calc. Creatinine Clearance 28 mL/min (70-130); Calcium 8.6 mg/dL (7.8-10.44); Carbon Dioxide 31 mmol/L (22-29); Chloride 103 mmol/L (98-107); Estimated GFR-MDRD 22; Glucose 94 mg/dL (70-105); Sodium 138 mmol/L (136-145)
--- NOTE | 2017-09-14 11:37 | OP ---
DATE OF PROCEDURE: 09/14/2017 PREOPERATIVE DIAGNOSIS: End-stage renal disease in need of basilic vein transposition fistula. POSTOPERATIVE DIAGNOSIS: End-stage renal disease in need of basilic vein transposition fistula with occluded arterial inflow from previous fistula. PROCEDURE: Right arm basilic vein transposition fistula with a new arterial inflow to the brachial a rtery. SURGEON: Dr. Pérez Encinas ANESTHESIA: General. Local 0.25% Marcaine with epinephrine 60 mL, which was mixed with 2% Xylocain e, 10 mL. ESTIMATED BLOOD LOSS: 50 mL. PROCEDURE: The patient was taken to the operating room where under general anesthesia, right upper e xtremity was prepared with ChloraPrep, draped in routine fashion. Local anesthetic infiltrated into the skin and subcutaneous tissue about the operative site. Incision made for the proximal volar fore arm carried down skin and subcutaneous tissue, carried up the mid right upper arm towards the axilla, carried down through skin, subcutaneous tissue to deep fascia mobilizing the basilic vein, which in this case was the brachial vein. The more medial vein had a fibrotic segment just prior to a larger branch vein from the forearm. A more lateral vein was therefore used, dissected free, dividing branc h between 4-0 silk ties and clips. It was more than adequate length. The arterial inflow had occlud ed and thus a new segment of the brachial artery just below the antecubital fossa was identified, dis sected free and surrounded with Silastic vessel loop. The vein distended with heparinized saline david ution, distended nicely. A #12 caliber Meg-Wick tunneler used to create a tunnel in the anterior upper arm between the axilla and the proximal volar forearm portion of the incisions and once the sahra vance was created, the patient was given 6000 units heparin intravenously. After adequate circulation time, the brachial artery was clamped proximally and distally. Longitudinal arteriotomy made sharply and elongated with Nielson scissors and once the vein had been tunneled it was flushed with heparinize d saline solution assuring good flow without torsion and end vein to side brachial artery anastomosis created with continuous suture of 6-0 Prolene. After completing anastomosis, vascular clamps were r eleased and there was excellent flow in the fistula. Surgicel applied. Good hemostasis obtained wit h the cautery. Subcutaneous tissues approximated with 3-0 Monocryl, skin with subdermal 4-0 Monocryl and DermaGlue applied. Dressings applied.
[2017-09-14] MEDS ORDERED: Lidocaine 1% PF 5 ML VIAL ONE (15:22)
[2017-09-14] MEDS ORDERED: Dexamethasone 20 MG/5 ML VIAL ONE (15:22)
[2017-09-14] MEDS ORDERED: PROPOFOL 200 MG/20 ML VIAL ONE (15:22)
== END 2017-09-14 13:55 ==
LOC: SDC 05:30
PROVIDERS: ATTEND Specialist
PROC: 03170ZD Bypass Right Brachial Artery to Upper Arm Vein, Open Approach (ICD-10-PCS; principal; 2017-09-14)
DX: T82.590A Other mechanical complication of surgically created arteriovenous fistula, initial encounter (principal); N18.6 End stage renal disease; F17.210 Nicotine dependence, cigarettes, uncomplicated; Z79.4 Long term (current) use of insulin; Z79.82 Long term (current) use of aspirin; Z79.899 Other long term (current) drug therapy
CPT/HCPCS: 36416; 80048; 85025; 96374; J0670; J1100; J1644; J2001; J2250; J2405; J2704; J2720; J3010

== ENCOUNTER 2017-12-31 22:30 | Emergency (ER) | payer MEDICARE | END 2018-01-01 01:35 | disposition home or self-care (01) | LOC: ERS 22:30 | DX: R31.0 Gross hematuria (principal); I13.2 Hypertensive heart and chronic kidney disease with heart failure and with stage 5 chronic kidney disease, or end stage renal disease; E11.22 Type 2 diabetes mellitus with diabetic chronic kidney disease; N18.6 End stage renal disease; I50.9 Heart failure, unspecified; F17.210 Nicotine dependence, cigarettes, uncomplicated; Z99.2 Dependence on renal dialysis; Z71.6 Tobacco abuse counseling | CPT/HCPCS: 99406 ==

== ENCOUNTER 2022-05-30 12:05 | Emergency (ER) | payer MEDICARE, OTHER ==
[2022-05-30 13:50] LABS: #Basophils 0.1 thou/uL (0.0-0.2); #Eosinphils 0.1 thou/uL (0.0-0.7); #Lymphocytes 1.4 thou/uL (1.20-3.40); #Monocytes 0.7 thou/uL (0.11-0.59); #Neutrophils 6.2 thou/uL (1.40-6.50); %Basophils 0.6 % (0.0-1.0); %Eosinophils 1.6 % (0.0-10.0); %Lymphocytes 16.7 % (21.0-51.0); %Monocytes 8.1 % (0.0-10.0); Hemoglobin 10.4 g/dL (14.0-18.0); Mean Corpuscular HGB CONC 34.2 g/dL (32.0-36.0); Mean Corpuscular Hemoglobin 31.6 pg (27.0-31.0); Mean Corpuscular Volume 92.4 fl (78.0-98.0); Mean Platelet Volume 8.1 fL (7.4-10.4); Platelet Count 241 10x3/uL (130-400); RBC Distribution Width 11.9 % (11.5-14.5); Red Blood Cell (RBC) Count 3.31 mill/uL (4.70-6.10); White Blood Cell (WBC) Count 8.5 10x3/uL (4.8-10.8)
[2022-05-30 14:24] LABS: ALT (SGPT) 11 U/L (8-55); AST (SGOT) 4 U/L (5-34); Albumin 4.1 g/dL (3.4-4.8); Alkaline Phosphatase 79 U/L (40-110); Anion Gap 17 mmol/L (10-20); BUN (Urea Nitrogen) 54 mg/dL (8.4-25.7); Bilirubin, Total 0.8 mg/dL (0.2-1.2); Calc. Creatinine Clearance 0 mL/min (70-130); Calcium 9.5 mg/dL (7.8-10.44); Carbon Dioxide 19 mmol/L (23-31); Chloride 106 mmol/L (98-107); Estimated GFR 9; Globulin 3.3 g/dL (2.4-3.5); Glucose 71 mg/dL (80-115); Potassium 5.6 mmol/L (3.5-5.1); Protein, Total 7.4 g/dL (5.8-8.1); Sodium 136 mmol/L (136-145)
[2022-05-30] MEDS ORDERED: LOKELMA 10 GM PACKET PO SCH (15:30)
== END 2022-05-30 18:07 | disposition left against medical advice (07) ==
LOC: ERS 12:05
DX: K11.20 Sialoadenitis, unspecified (principal); E11.22 Type 2 diabetes mellitus with diabetic chronic kidney disease; N18.9 Chronic kidney disease, unspecified; I50.9 Heart failure, unspecified
CPT/HCPCS: 36415; 80053; 85025; 99283

== ENCOUNTER 2023-03-31 11:00 | Emergency (ER) | payer MEDICARE | END 2023-03-31 12:50 | disposition home or self-care (01) | LOC: ERS 11:00 | DX: E11.22 Type 2 diabetes mellitus with diabetic chronic kidney disease (principal); N18.6 End stage renal disease; I13.2 Hypertensive heart and chronic kidney disease with heart failure and with stage 5 chronic kidney disease, or end stage renal disease; I50.9 Heart failure, unspecified; Z99.2 Dependence on renal dialysis | CPT/HCPCS: 93005 ==

== ENCOUNTER 2023-04-01 07:15 | Emergency (ER) | payer MEDICAID, MEDICARE ==
[2023-04-01 09:14] LABS: #Monocytes 0.4 thou/uL (0.11-0.59); #Neutrophils 8.6 thou/uL (1.40-6.50); %Basophils 0.3 % (0.0-1.0); %Eosinophils 0.3 % (0.0-10.0); %Monocytes 4.1 % (0.0-10.0); %Neutrophils 89.7 % (42.0-75.0); Hematocrit 34.3 % (42.0-52.0); Hemoglobin 11.1 g/dL (14.0-18.0); Mean Corpuscular HGB CONC 32.4 g/dL (32.0-36.0); Mean Corpuscular Hemoglobin 30.3 pg (27.0-31.0); Mean Corpuscular Volume 93.7 fl (78.0-98.0); Mean Platelet Volume 11.7 fL (7.4-10.4); Platelet Count 139 10x3/uL (130-400); RBC Distribution Width 17.7 % (11.5-14.5); Red Blood Cell (RBC) Count 3.66 mill/uL (4.70-6.10); White Blood Cell (WBC) Count 9.6 10x3/uL (4.8-10.8)
[2023-04-01 09:37] LABS: ALT (SGPT) 548 U/L (8-55); AST (SGOT) 118 U/L (5-34); Albumin 4.3 g/dL (3.4-4.8); Alkaline Phosphatase 98 U/L (40-110); Anion Gap 29 mmol/L (10-20); Bilirubin, Total 1.6 mg/dL (0.2-1.2); Calc. Creatinine Clearance 0 mL/min (70-130); Calcium 9.2 mg/dL (7.8-10.44); Carbon Dioxide 11 mmol/L (23-31); Chloride 112 mmol/L (98-107); Estimated GFR 2; Globulin 2.5 g/dL (2.4-3.5); Glucose 147 mg/dL (80-115); Potassium 5.9 mmol/L (3.5-5.1); Protein, Total 6.8 g/dL (5.8-8.1); Sodium 146 mmol/L (136-145)
[2023-04-01 09:51] LABS: BUN (Urea Nitrogen) 148 mg/dL (8.4-25.7)
[2023-04-01 10:03] LABS: Troponin I 8.477 ng/mL (< 0.028)
[2023-04-01] MEDS ORDERED: Calcium Gluc 4.6 MEQ/10 ML (100 MG/ML) ONE (10:07)
[2023-04-01] MEDS ORDERED: Insulin Regular 300 UNITS/3 ML VIAL ONE (10:07)
[2023-04-01 10:25] LABS: Magnesium 2.4 mg/dL (1.6-2.6)
[2023-04-01 10:48] LABS: INR-International Normal Ratio 1.9; Prothrombin Time 22.3 sec (12.0-14.7)
[2023-04-01] MEDS ORDERED: Ondansetron PF 4 MG/2 ML Vial IVP PRN (11:18)
[2023-04-01] MEDS ORDERED: Senokot S 8.6-50 MG TAB PO PRN (11:18)
[2023-04-01] MEDS ORDERED: Guaifenesin DM 100-10/5 ML UDCUP PO PRN (11:18)
[2023-04-01] MEDS ORDERED: Acetaminophen 325 MG TAB PO PRN (11:18)
[2023-04-01] MEDS ORDERED: Dextrose 50% Abboject 50 ML SYRINGE SLOW IVP PRN (11:21)
[2023-04-01] MEDS ORDERED: Insulin Regular 300 UNITS/3 ML VIAL SC PRN (11:21)
[2023-04-01] MEDS ORDERED: Dextrose 5% in Water 1,000 ML IV PRN (11:21)
[2023-04-01] MEDS ORDERED: Glucagon 1 MG/ML KIT IM PRN (11:21)
[2023-04-01] MEDS ORDERED: Heparin 5,000 UNITS/ML VIAL SC SCH (15:00)
[2023-04-02] MEDS ORDERED: Sertraline 25 MG TAB PO SCH (09:00)
== END 2023-04-01 18:48 | disposition home or self-care (01) ==
LOC: ERS 07:15
DX: E87.5 Hyperkalemia (principal); R41.82 Altered mental status, unspecified; E11.22 Type 2 diabetes mellitus with diabetic chronic kidney disease; N18.6 End stage renal disease; I13.2 Hypertensive heart and chronic kidney disease with heart failure and with stage 5 chronic kidney disease, or end stage renal disease; I50.9 Heart failure, unspecified; E87.70 Fluid overload, unspecified; Z87.891 Personal history of nicotine dependence; Z79.4 Long term (current) use of insulin; Z79.899 Other long term (current) drug therapy; Z79.82 Long term (current) use of aspirin; Z99.2 Dependence on renal dialysis
CPT/HCPCS: 71045; 80053; 83735; 83880; 84484; 85025; 85610; 85730; 93005; 96374; 96375; J0612; J1815; J7611